=== PATIENT | female | born 1955 | race Caucasian/White ===

== ENCOUNTER 2021-07-21 10:27 | Emergency (ER) | payer BC, OTHER, SELFPAY ==
--- NOTE | ~2021-07-21 | XR_ITS ---
EXAMINATION: XR KNEE, RIGHT CLINICAL INFORMATION: Worsening posterior right knee pain. COMPARISON: None TECHNIQUE: Four views of the right knee. FINDINGS: Bones and soft tissues are normal. No fracture or joint effusion. Alignment is anatomic. Joint spaces are well maintained. No abnormal soft tissue calcification. XR/XR knee RT 3V IMPRESSION: Unremarkable right knee.
--- NOTE | ~2021-07-21 | US_ITS ---
EXAMINATION: RIGHT LOWER EXTREMITY DEEP VENOUS ULTRASOUND CLINICAL INFORMATION: Posterior thigh pain status post trauma. COMPARISON: None. TECHNIQUE: Duplex Doppler imaging with compression maneuvers were performed of the right lower extremity deep venous system. FINDINGS: The visualized common femoral, femoral and popliteal veins demonstrate normal compressibility and color flow without evidence of venous thrombosis. Visualized portions of the calf veins demonstrate normal color fill-in suggesting patency. There is no evidence of a Lundberg's cyst. US/US venous duplex LE RT IMPRESSION: No evidence of deep venous thrombosis involving the right lower extremity.
[2021-07-21 11:29] VITALS: BP 154/50; PULSE 69; RESP 19; TEMP 36.9; O2SAT 98; BMI 35.8
--- NOTE | 2021-07-21 11:57 | ED.EXTPRO ---
HPI - Extremity Problem General Chief complaint: Extremity Problem Stated complaint: r knee pain Time Seen by Provider: 07/21/21 11:43 Source: patient Mode of arrival: ambulatory Limitations: no limitations History of Present Illness HPI Narrative: 65-year-old female presents for right knee pain. Patient has had right knee pain for months, her knee has felt swollen painful, and is as if someone has stuck a spike through the side of her knee Patient saw her primary care provider 3 days ago, had an x-ray, knee was arthritic, nothing acute on x-ray Patient has also been experiencing as charley horse in the back of her right thigh, initially she had a painful right calf, now the pain has moved up into the back of her right thigh. Last night she was sitting in her car, and reached for something and felt a snap in her knee. Now it hurts to bend her knee, she can bear weight, but it is painful. No blood thinners. Past medical history hypertension, hyperlipidemia, hypothyroid Related Data Previous Rx's Medication Instructions Recorded methocarbamol 750 mg tablet 750 mg PO Q8H 5 Days #15 tab 07/21/21 Allergies Allergy/AdvReac Type Severity Reaction Status Date / Time codeine [CODEINE] AdvReac Intermediate NAUSAEA Unverified 11/25/19 17:55 Review of Systems Constitutional: Constitutional: Denies body ache(s), Denies chills, Denies fatigue, Denies fever(s), Denies headache(s), Denies malaise and Denies weakness Eyes: Eyes: Denies diplopia ENT: Denies vertigo, Denies dizziness, Denies headache(s) and Denies throat swelling Cardiovascular: Cardiovascular: Denies chest pain, Denies syncope, Denies leg edema, Denies lightheadedness, Denies Loss of Consciousness, Denies palpitations and Denies dyspnea Respiratory: Respiratory: Denies chest congestion, Denies cough and Denies dyspnea Gastrointestinal: Gastrointestinal: Denies abdominal pain, Denies hematochezia, Denies constipation, Denies diarrhea and Denies vomiting Musculoskeletal: Musculoskeletal: Denies back pain, Denies myalgias, Denies deformity, Reports arthralgias, Reports limited range of motion, Reports muscle cramps, Denies muscle weakness, Denies numbness and Denies tingling Integumentary/Breasts: Skin/Breast: Denies rash Neurologic: Denies confusion, Denies vertigo, Denies dizziness, Denies syncope, Denies headache(s), Denies numbness, Denies tingling and Denies weakness Psychiatric: Psychiatric: Denies anxiety, Denies confusion and Denies depression Endocrine: Endocrine: Denies fatigue and Denies palpitations Allergic/Immunologic: Allergic/Immunologic: Denies throat swelling [facility] Past Medical History [facility] Narrative: Hypertension, hyperlipidemia, hypothyroid Social History Social History Advance Directives: Yes Advance Directives Information Provided: No Advance Directives on File: No Physical Exam Vital Signs: Vital Signs: Last Vital Signs Temp 98.4 F 07/21/21 11:29 Pulse 69 07/21/21 11:29 Resp 19 07/21/21 11:29 BP 154/50 H 07/21/21 11:29 Pulse Ox 98 07/21/21 11:29 BMI result Body Mass Index 35.8 Const: General: no acute distress, well developed, alert and awake; No confusion Nutritional Appearance: well nourished Orientation/consciousness: patient oriented x3 and No confusion Limitations: no limitations Eyes: Conjunctivae: conjunctivae normal Pupils: Equal, round and reactive pupils present EOM: EOMs intact bilaterally Neck: Neck: Yes full ROM, Yes no lymphadenopathy and Yes supple Resp: Effort & Inspection: normal respiratory effort and able to speak in complete sentences Auscultation: clear to auscultation bilaterally, no crackles, no rales, no rhonchi and no wheezes Cardio: Rate: regular rate Rhythm: regular rhythm Heart sounds: S1 normal heart sound present and S2 normal heart sound present GI: Inspection: Yes normal to inspection Palpation (GI): Soft to palpation, nontender, no guarding and not rigid Percussion: Yes normal to percussion Auscultation: normal bowel sounds Skin: General skin exam: no rashes or lesions noted Neuro: General: patient oriented x3 and No confusion Cranial nerves: Yes Equal, round and reactive pupils present Extrem: Right lower extremity: normal to inspection, normal capillary refill, hip/thigh Details: normal to inspection and tenderness Location: of the mid upper leg (Posterior); Negative for no swelling, no ecchymosis, no crepitus and no unusual warmth and knee Details: normal to inspection, tenderness Location: of the popliteal fossa, abnormal ROM Details: pain with active ROM during Details: in flexion and pain with passive ROM during Details: in flexion and knee ligament exam normal; Negative for no swelling, no ecchymosis, no crepitus, no deformity and no unusual warmth; No no cyanosis and no edema Psych: Appearance: grossly normal Affect: normal affect Attitude: cooperative Thought process: Normal thought process present Course Course Course Narrative: 65-year-old female with a month long history of right knee pain, with worsening pain after patient reach for something while sitting in her car yesterday. Additionally patient has had had posterior right thigh pain Today, patient cannot flex her knee without pain. She is tender in her popliteal fossa, tender to palpate in posterior right thigh. Intact lower extremity sensation, distal pulses, motor strength. Will get ultrasound to rule out DVT in right posterior thigh, will get labs to evaluate electrolytes, x-ray knee. Gave Tylenol for pain Reevaluation(s) Reevaluation #1: Patient has a leukocytosis of 14.7, most likely inflammatory not infectious. Patient tells me that she always has increased white blood cells, unknown cause I will not elizabeth this, as I do not feel that this is infection at this time Electrolytes are fine. Ultrasound shows no evidence of Lundberg cyst or DVT, x-ray is unremarkable Will treat with knee immobilizer, crutches, muscle relaxant, rest, ice, compression, elevation, follow-up with orthopedics. All patient's questions were answered MDM - Extremity (Nontraumatic) Lab Data Result diagrams: 07/21/21 12:05 07/21/21 12:05 Labs: Lab Results 07/21/21 07/21/21 Range/Units 12:05 12:05 WBC 14.7 H (4.8-10.8) X10*3/uL RBC 4.12 L (4.20-5.50) X10*6/uL Hgb 13.3 (12.0-16.0) g/dl Hct 38.1 (37.0-47.0) % MCV 92.5 (80.0-98.0) fL MCH 32.3 (27.0-33.0) pg MCHC 34.9 (31.0-35.0) g/dl RDW 12.9 (11.0-16.0) % Plt Count 319 (160-400) X10*3/uL MPV 11.5 (9.4-12.3) fL Immature Gran % (Auto) 0.4 (0.0-0.4) % Neut % (Auto) 73.0 (45-73) % Lymph % (Auto) 20.2 (20-40) % [place] % (Auto) 5.8 (2-11) % Eos % (Auto) 0.3 (0-4) % Baso % (Auto) 0.3 (0-2) % Lymph # (Auto) 3.0 (1.2-4.9) X10*3/uL [place] # (Auto) 0.9 (0.1-1.2) X10*3/uL Eos # (Auto) 0.1 (0.0-0.4) X10*3/uL Baso # (Auto) 0.0 (0.0-0.2) X10*3/uL Abs Immat Gran (auto) 0.06 H (0.00-0.03) X10*3/uL Absolute Neuts (auto) 10.7 H (2.0-8.3) x10*3/uL Absolute Nucleated RBC 0.000 (0.0-0.012) X10*3/uL Nucleated RBC % (auto) 0.0 (0.0-0.2) /100WBC Sodium 139 (135-145) mmol/L Potassium 3.3 (3.3-5.1) mmol/L Chloride 101 (96-108) mmol/L Carbon Dioxide 28 (22-29) mmol/L Anion Gap 13 (12-20) BUN 20 H (9-16) mg/dL Creatinine 0.95 (0.5-1.4) mg/dL Estim Creat Clear Calc 57.2 Estimated GFR 59 Random Glucose 131 H (60-115) mg/dL Calcium 10.2 (8.4-10.2) mg/dL Total Bilirubin 0.7 (0.0-1.0) mg/dL AST 18 (5-31) U/L ALT 21 (0-31) U/L Alkaline Phosphatase 90 (39-117) U/L Total Protein 7.6 (6.5-8.0) g/dL Albumin 4.3 (3.5-5.0) g/dL Discharge Plan Discharge Clinical Impression: Right knee pain Patient Disposition: Home, Self-Care Instructions: R.I.C.E. Treatment (ED) Additional Instructions: Please call orthopedics at the following number [phone] I have referred you to orthopedics, but If you have not heard from them by Friday, please call Please rest, ice, elevate, and use your knee immobilizer until you are seen by orthopedics. Please alternate Tylenol and ibuprofen for pain. Take 1 or the other every 4 hours. For example, at midnight take 1000 mg of Tylenol, then at 4:00 a.m. take 800 mg ibuprofen, at 8:00 a.m. take 1000 mg of Tylenol, at noon take 800 mg of ibuprofen, at 4:00 p.m. take 1000 mg of Tylenol, at 8:00 p.m. take 800 mg of ibuprofen. Do not exceed 3000 mg of Tylenol in 24 hours. This method is proven to be as effective as an opioid for pain control. Please fill prescription for methocarbamol that I prescribed, this is a muscle relaxant and should help your right thigh pain. Please return to emergency room for any new or concerning symptoms Prescriptions: New methocarbamol 750 mg tablet 750 mg PO Q8H 5 Days Qty: 15 0RF Referrals: Eugene Rojas MD [Physician] -
[2021-07-21] MEDS: Acetaminophen 325 MG TABLET 975 MG PO (12:00)
[2021-07-21 12:09] LABS: MANUAL DIFF FLAG NO
[2021-07-21 12:16] LABS: Basophils Percent Auto 0.3 % (0-2); Eosinophils Absolute Auto 0.1 X10*3/uL (0.0-0.4); Eosinophils Percent Auto 0.3 % (0-4); Hematocrit 38.1 % (37.0-47.0); Hemoglobin 13.3 g/dl (12.0-16.0); Imm Gran Abs Auto 0.06 X10*3/uL (0.00-0.03); Imm Gran Pct Auto 0.4 % (0.0-0.4); Lymphocytes Percent Auto 20.2 % (20-40); Mean Corpuscular HGB Conc 34.9 g/dl (31.0-35.0); Mean Corpuscular Hemoglobin 32.3 pg (27.0-33.0); Mean Corpuscular Volume 92.5 fL (80.0-98.0); Mean Platelet Volume 11.5 fL (9.4-12.3); Monocytes Absolute Auto 0.9 X10*3/uL (0.1-1.2); Monocytes Percent Auto 5.8 % (2-11); Neutrophils Absolute Auto 10.7 x10*3/uL (2.0-8.3); Platelet Count 319 X10*3/uL (160-400); Red Blood Count 4.12 X10*6/uL (4.20-5.50); Red Cell Distribution Width 12.9 % (11.0-16.0); White Blood Count 14.7 X10*3/uL (4.8-10.8)
[2021-07-21 12:42] LABS: Alanine Aminotransferase 21 U/L (0-31); Albumin Level 4.3 g/dL (3.5-5.0); Alkaline Phosphatase 90 U/L (39-117); Anion Gap 13 (12-20); Aspartate Amino Transferase 18 U/L (5-31); Bilirubin Total 0.7 mg/dL (0.0-1.0); Blood Urea Nitrogen 20 mg/dL (9-16); Calcium 10.2 mg/dL (8.4-10.2); Carbon Dioxide 28 mmol/L (22-29); Chloride 101 mmol/L (96-108); Creatinine Clr Calc Pharmacy 57.2; Estimated Glomerular Filt Rate 59; Glucose Random 131 mg/dL (60-115); Potassium 3.3 mmol/L (3.3-5.1); Sodium 139 mmol/L (135-145); Total Protein 7.6 g/dL (6.5-8.0)
== END 2021-07-21 14:24 | disposition home or self-care (01) ==
PROVIDERS: Physician Assistant; Emergency Provider Emergency Medicine; PCP Internal Medicine
DX: M25.561 Pain in right knee (principal); M79.651 Pain in right thigh; I10 Essential (primary) hypertension
CPT/HCPCS: 36415; 73562; 80053; 85025; 93971; 99283; 99284

== ENCOUNTER 2021-11-09 07:18 | Outpatient (REF) | payer MEDICARE, BC, OTHER, SELFPAY ==
--- NOTE | ~2021-11-09 | XR_ITS ---
EXAMINATION: XR KNEE AP STANDING X-ray right knee CLINICAL INFORMATION: Knee pain COMPARISON: X-ray right knee 07/21/2021 TECHNIQUE: AP bilateral standing view of the knees was obtained. Right knee 2 views FINDINGS: Right knee: Mild medial compartment joint space narrowing. Limited evaluation of the patellofemoral joint space on the sunrise view, grossly appearing maintained on the lateral projection. No visible acute fracture or dislocation. Small suprapatellar joint fluid. Quadriceps tendon insertional enthesopathy. Tibial tubercle insertional enthesopathy. Left knee: On this single frontal radiograph, there is mild to moderate medial compartment arthritis with joint space loss and osteophytes. XR/XR knee RT 1V IMPRESSION: Right knee: Mild medial compartment arthritis. Small effusion. Left knee: Mild to moderate medial compartment arthritis.
--- NOTE | ~2021-11-09 | XR_ITS ---
EXAMINATION: XR KNEE AP STANDING X-ray right knee CLINICAL INFORMATION: Knee pain COMPARISON: X-ray right knee 07/21/2021 TECHNIQUE: AP bilateral standing view of the knees was obtained. Right knee 2 views FINDINGS: Right knee: Mild medial compartment joint space narrowing. Limited evaluation of the patellofemoral joint space on the sunrise view, grossly appearing maintained on the lateral projection. No visible acute fracture or dislocation. Small suprapatellar joint fluid. Quadriceps tendon insertional enthesopathy. Tibial tubercle insertional enthesopathy. Left knee: On this single frontal radiograph, there is mild to moderate medial compartment arthritis with joint space loss and osteophytes. XR/XR knee standing BI IMPRESSION: Right knee: Mild medial compartment arthritis. Small effusion. Left knee: Mild to moderate medial compartment arthritis.
== END 2021-11-09 07:19 | disposition home or self-care (01) ==
LOC: HO.HOSX 07:18
PROVIDERS: Visit Provider Physician Assistant
DX: M17.11 Unilateral primary osteoarthritis, right knee (principal)
CPT/HCPCS: 20610; 73560; 73565; J1040

== ENCOUNTER 2023-05-01 08:47 | Outpatient (REF) | payer MEDICARE, BC, OTHER, SELFPAY ==
--- NOTE | ~2023-05-01 | XR_ITS ---
EXAMINATION: XR KNEE, LEFT XR KNEE AP STANDING CLINICAL INFORMATION: Pain. COMPARISON: Prior radiographs, most recently 11/27/2021. TECHNIQUE: Lateral and axial views of the left knee are obtained. AP bilateral standing view of the knees was obtained. FINDINGS: The lateral joint space compartment of the right knee is well-maintained, and there is moderate narrowing and peripheral osteophyte formation of the right medial joint space compartment. The lateral and patellofemoral joint space compartments of the left knee are well-maintained, and there is moderate narrowing of the medial joint space compartment. There is tricompartment osteoarthritic change, most pronounced in the left medial joint space compartment. An enthesophyte is seen arising from the upper pole of the left patella at the quadriceps tendon insertion. No fracture or dislocation is seen.There is no left knee joint effusion. There is a mild varus configuration of the bilateral knees. XR/XR knee LT 2V IMPRESSION: 1. There is moderate osteoarthritic change of the medial joint space compartment of the right knee. 2. There is tricompartment osteoarthritic change of the left knee, most pronounced in the medial joint space compartment, where degenerative change is moderate. 3. There is a mild bilateral varus configuration of the knees.
--- NOTE | ~2023-05-01 | XR_ITS ---
EXAMINATION: XR KNEE, LEFT XR KNEE AP STANDING CLINICAL INFORMATION: Pain. COMPARISON: Prior radiographs, most recently 11/27/2021. TECHNIQUE: Lateral and axial views of the left knee are obtained. AP bilateral standing view of the knees was obtained. FINDINGS: The lateral joint space compartment of the right knee is well-maintained, and there is moderate narrowing and peripheral osteophyte formation of the right medial joint space compartment. The lateral and patellofemoral joint space compartments of the left knee are well-maintained, and there is moderate narrowing of the medial joint space compartment. There is tricompartment osteoarthritic change, most pronounced in the left medial joint space compartment. An enthesophyte is seen arising from the upper pole of the left patella at the quadriceps tendon insertion. No fracture or dislocation is seen.There is no left knee joint effusion. There is a mild varus configuration of the bilateral knees. XR/XR knee standing BI IMPRESSION: 1. There is moderate osteoarthritic change of the medial joint space compartment of the right knee. 2. There is tricompartment osteoarthritic change of the left knee, most pronounced in the medial joint space compartment, where degenerative change is moderate. 3. There is a mild bilateral varus configuration of the knees.
== END 2023-05-01 08:48 | disposition home or self-care (01) ==
LOC: HO.HOSX 08:47
PROVIDERS: Visit Provider Orthopaedic Surgery
DX: M25.562 Pain in left knee (principal)
CPT/HCPCS: 73560; 73565; 99212

== ENCOUNTER 2023-05-01 09:38 | Outpatient (AMB) | payer MEDICARE, BC, OTHER, SELFPAY ==
--- NOTE | 2023-05-01 09:46 | A.OFFVIS_ITS ---
Intake Vital Signs 05/01/23 09:47 Height 5 ft Intake Visit Reasons: New Prob- Left knee pain Intake Note: Billie is a 67 year old female who presents today for a new problem visit with complaints of left knee pain. Patient reports that she has had left knee pain for about a year now. She is unable to kneel on the knee. The pain goes away once she is no longer kneeling. Allergies cefuroxime Allergy (Verified 05/01/23 09:52) Nausea codeine [CODEINE] Adverse Reaction (Intermediate, Verified 08/02/22 12:40) NAUSAEA HPI New Prob- Left knee pain HPI Details Billie is a 67 year old woman who presents with complaints of left knee OA pain. She reports pain primarily with kneeling activities, and say she has not been able to do so for ~1 year now without pain. She has known left knee OA & a hx of meniscus tear, and had good relief from steroid injections in the past. She has right knee OA and received a steroid injection on 11/09/21, with good relief. Today she is here because she has difficulty kneeling on her left knee. She otherwise has no pain. She has tried a cushion but finds it intolerable. She feels she has to kneel in order to garden and clean. SHe can walk about 1- 1 1/2 miles without pain. [facility] Medical History (Updated 05/01/23 @ 10:14 by Eugene Rojas MD) Hyperthyroidism Hypertension Surgical History (Updated 05/01/23 @ 09:54 by Key Sanders CMA) H/O hemorrhoidectomy (~03/06/23) History of lumpectomy History of hysterectomy Social History Patient Tobacco Use Status: Former Tobacco user Current occupational status: retired Review of Systems Const All systems reviewed & are unremarkable except as noted in HPI and below Physical Exam Const General: no acute distress, alert and awake Orientation/consciousness: patient oriented x3 HEENT Head: Yes normocephalic and Yes atraumatic Mouth: moist mucous membranes Eyes General: appearance normal, both eyes and all related structures EOM: EOMs intact bilaterally Chest Other: no audible wheezing. Resp Other: No audible wheezing Effort & Inspection: normal respiratory effort and able to speak in complete sentences Cardio Other: Radial pulse palpable with no rythmic abnormalities Jugular venous distension: no JVD Back/Spine/Pelvis Cervical Spine: normal cervical lordosis Skin General skin exam: turgor normal Rashes: no rashes Neuro General: patient oriented x3 Extrem Other: Left knee with full ROM Stable to v/v stress No effusion TTP lateral patellofemoral articulation Psych Appearance: grossly normal Mental Status: mental status grossly normal Speech and movement: Normal speech and movement present Affect: normal affect Attitude: cooperative Results Reviewed Results Reviewed: I personally reviewed relevant radiographs. Moderate tricompartmental OA bilaterally Assessment & Plan Assessment & Plan (1) Arthritis of both knees: Code(s): M17.0 - Bilateral primary osteoarthritis of knee Plan: Bilateral knee OA. Her left is symptomatic mostly with kneeling. I reviewed her radiographs and her symptoms with her. I suggest activity modification and injections. At this time she does not feel that her symptoms are significant enough to warrant injections. She may return when the weather is nicer and her symptoms are more bothersome. At that time we can inject her knee. Plan Prepared for Eugene Rojas MD by Chilango Castillo, director medical economics, on 05/01/23 at 9:50 AM, EST. Orders: Orders XR knee standing BI 05/02/23 M25.569 - Pain in unspecified knee Vida Robbins PA-C XR knee LT 2V 05/02/23 M25.569 - Pain in unspecified knee NADYA Kennedy XR knee standing BI Today M25.569 - Pain in unspecified knee Eugene Rojas MD XR knee LT 2V Today M25.569 - Pain in unspecified knee Eugene Rojas MD Coding Level of Care Code Est Pt Level 3 (89233) Diagnoses Arthritis of both knees M17.0
== END 2023-05-01 10:57 | disposition home or self-care (01) ==
PROVIDERS: Visit Provider Orthopaedic Surgery
DX: M17.0 Bilateral primary osteoarthritis of knee (principal)
CPT/HCPCS: 99213

== ENCOUNTER 2023-05-02 09:00 | Outpatient (REF) | payer MEDICARE, BC, OTHER, SELFPAY | END 2023-05-02 09:01 | disposition home or self-care (01) | LOC: HO.HOSX 09:00 | PROVIDERS: Visit Provider Physician Assistant | DX: Z13.89 Encounter for screening for other disorder (principal) ==

== ENCOUNTER 2023-06-25 12:51 | Emergency (ER) | payer MEDICARE, BC, OTHER, SELFPAY ==
--- NOTE | 2023-06-25 | ECG_ITS ---
Test Reason : chest pain Blood Pressure : / mmHG Vent. Rate : 069 BPM Atrial Rate : 069 BPM P-R Int : 160 ms QRS Dur : 082 ms QT Int : 384 ms P-R-T Axes : 042 -14 005 degrees QTc Int : 411 ms Normal sinus rhythm Inferior infarct , age undetermined Abnormal ECG When compared with ECG of 28-DEC-2014 08:59, Inferior infarct is now Present Nonspecific T wave abnormality now evident in Anterior leads Referred By: Generic ED Physician Electronically Signed By:OCHOA FOWLER
--- NOTE | ~2023-06-25 | XR_ITS ---
EXAMINATION: XR CHEST CLINICAL INFORMATION: Substernal chest pain COMPARISON: None available. TECHNIQUE: 2 views of the chest were obtained. FINDINGS: No significant abnormality is noted involving the heart, lungs, mediastinum, bony thorax or soft tissues. XR/XR chest 2V IMPRESSION: Unremarkable examination.
[2023-06-25 13:08] VITALS: BP 150/61; PULSE 66; RESP 18; TEMP 36.8; O2SAT 96; BMI 35.2
--- NOTE | 2023-06-25 13:08 | ED_ITS ---
HPI - Chest Pain General Chief Complaint: Chest Pain Stated Complaint: cp Time Seen by Provider: 06/25/23 15:39 Source: patient Mode of arrival: ambulatory Limitations: no limitations History of Present Illness HPI narrative: Patient comes to the emergency room complaining of midsternal chest pain for 1 year which has worsened over the last 2 months. Patient denies any shortness of breath or chest pain at this time. Patient states that she does to a lot of exercise and sometimes believes that she has musculoskeletal pain. Patient states that she had a stress test done about 5 years ago and it was normal. Also, patient complaining of paresthesias which are not present at this time. Related Data Home Medications ?Medication ?Instructions ?Recorded ?Confirmed atorvastatin 20 mg tablet 20 mg PO DAILY 11/09/21 carvedilol 12.5 mg tablet 12.5 mg PO BID 11/09/21 chlorthalidone 25 mg tablet 25 mg PO DAILY 11/09/21 esomeprazole magnesium 20 mg 20 mg PO DAILY 08/02/22 capsule,delayed release (Nexium 24HR) methimazole 5 mg tablet 2.5 mg PO DAILY 08/02/22 tacrolimus 0.03 % topical ointment 1 appl topical BID 08/02/22 Previous Rx's ?Medication ?Instructions ?Recorded potassium chloride 20 mEq oral 20 meq PO DAILY #30 ea 06/25/23 packet Allergies Allergy/AdvReac Type Severity Reaction Status Date / Time cefuroxime Allergy Nausea Verified 06/25/23 13:14 codeine [CODEINE] AdvReac Intermediate NAUSAEA Verified 06/25/23 13:14 Review of Systems 2 Review of Systems: Constitutional : No Weight loss, No Fever, No Chills, No Night Sweats, No Fatigue, No Malaise ENT/Mouth : No Hearing loss, No Ear Pain, No Nasal Congestion, No Sinus Pain, No Hoarseness, No sore throat, No Rhinorrhea, No Swallowing Difficulty Eyes: No Eye Pain, No Swelling, No Redness, No Foreign Body, No Discharge, No Vision Changes Cardiovascular : Complaining of chronic Chest Pain, No SOB, No Dyspnea on Exertion, No Orthopnea, No Edema, No Palpitations Respiratory : No Cough, No Sputum, No Wheezing, No Smoke Exposure, No Dyspnea Gastrointestinal : No Nausea, No Vomiting, No Diarrhea, No Constipation, No abdominal Pain, No Hematochezia, No Melena Genitourinary : no irregular bleeding, No Dysuria, No Urinary Frequency, No Hematuria, No Urinary Incontinence, No Urgency, No Flank Pain, No Urinary Flow Changes, No Hesitancy Musculoskeletal : No joint pain, No Myalgias, No Joint Swelling Skin : No Skin Lesions, No rash Neuro : No Weakness, No Numbness, complaining of Paresthesias in bilateral upper and lower extremities, No Loss of Consciousness, No Dizziness, No Headache Psych : No Anxiety/Panic, No Depression, No SI/HI/AH/VH, No Social Issues, Heme/Lymph: No Bruising, No Bleeding,No Lymphadenopathy Endocrine : No Polyuria, No Polydipsia, No Temperature Intolerance [facility] Past Medical History Medical History Hyperthyroidism Hypertension Surgical History (Updated 05/01/23 @ 09:54 by Key Sanders CMA) H/O hemorrhoidectomy (~03/06/23) History of lumpectomy History of hysterectomy Social History Social History Patient Tobacco Use Status: Former Tobacco user Advance Directives: Yes Advance Directives Information Provided: No Advance Directives on File: No Current occupational status: retired Physical Exam 2 Vital Signs: Vital Signs: Last Vital Signs Temp 98.2 F 06/25/23 13:08 Pulse 67 06/25/23 15:25 Resp 18 06/25/23 15:25 BP 161/59 H 06/25/23 15:25 Pulse Ox 100 06/25/23 15:25 O2 Del Method Room Air 06/25/23 15:25 BMI result Body Mass Index 35.2 Const: Other: Appearance: Alert. Oriented X3. No acute distress. Eyes: Pupils equal, round and reactive to light. ENT: Pharynx normal. Neck: Normal inspection. Neck supple. No lymph nodes noted. No crepitus CVS: Normal heart rate and rhythm. Pulses normal. Normal S1 and S2 Respiratory: No respiratory distress. Breath sounds normal. No Wheezing. No rales Abdomen: Soft and nontender. No rigidity. No distention. Skin: Skin warm and dry. Normal skin color. Normal skin turgor. Extremities: No lower extremity edema. No Lacerations. No Rash Neuro: Oriented X 3. No motor deficit. No sensory deficit. Moving all extremities. No slurred speech. CN 2 through 12 grossly intact Psych: calm, cooperative, normal affect Course Course Course Narrative: RME:67 yo female here w/?sporadic substernal squeezing chest pressure and dyspnea x 1 yr, worsening x 2 mo both at rest and on exertion. No radiation. +sob +numbness to b/l feet (R>L), b/l hands (L>R) x1 wk. only notices it when she stops and thinks about it. hx of prediabetes. neuro intact. fast neg. labs, trop, ekg, cxr ordered. Full HPI, ROS and PE to be performed by the primary ED provider. Medications Administered Discontinued Medications Generic Name Dose Route Start Last Admin Trade Name Freq PRN Reason Stop Dose Admin Potassium Chloride 10 meq in 100 mls @ 100 mls/hr 06/25/23 15:45 06/25/23 18:10 Potassium Chloride/H20 IV 06/25/23 17:44 100 mls/hr Q1H MICKY Administration Magnesium Sulfate 2 gm in 50 mls @ 25 mls/hr 06/25/23 15:37 06/25/23 18:09 Magnesium Sulfate/H2o IV 06/25/23 17:36 Infused ONCE ONE Infusion Potassium Chloride 40 meq 06/25/23 15:37 06/25/23 15:44 Potassium Chloride Packet 20 Meq Packet PO 06/25/23 15:38 40 meq ONCE ONE Administration Medical Decision Making Medical Decision Making [facility] Narrative: -my interpretation of labs: Normal hematology, chemistry shows potassium 2.9. -patient does take chlorthalidone which puts her risk of hyperkalemia. -patient was repleted with IV and p.o. potassium, repeat potassium 3.2. Patient asymptomatic. -my interpretation of EKG, normal sinus rhythm, heart rate 69, no ST segment depression or elevation, nonspecific T-wave inversion in lead 3, QTC 411, no T- wave abnormality Differential Diagnosis Differential Diagnoses: The differential diagnosis associated with the presentation includes (Hypokalemia, electrolyte abnormality, paresthesias) Lab Data [facility] Lab Attestation statement: I reviewed the patient's lab results. 06/25/23 13:28 06/25/23 15:58 Labs: Lab Results 06/25/23 06/25/23 Range/Units 13:28 15:58 WBC 10.9 H (4.8-10.8) X10*3/uL RBC 4.04 L (4.20-5.50) X10*6/uL Hgb 13.1 (12.0-16.0) g/dl Hct 38.0 (37.0-47.0) % MCV 94.1 (80.0-98.0) fL MCH 32.4 (27.0-33.0) pg MCHC 34.5 (31.0-35.0) g/dl RDW 12.4 (11.0-16.0) % Plt Count 300 (160-400) X10*3/uL MPV 11.3 (9.4-12.3) fL Immature Gran % (Auto) 0.5 H (0.0-0.4) % Neut % (Auto) 64.3 (45-73) % Lymph % (Auto) 27.2 (20-40) % [place] % (Auto) 7.0 (2-11) % Eos % (Auto) 0.6 (0-4) % Baso % (Auto) 0.4 (0-2) % Lymph # (Auto) 3.0 (1.2-4.9) X10*3/uL [place] # (Auto) 0.8 (0.1-1.2) X10*3/uL Eos # (Auto) 0.1 (0.0-0.4) X10*3/uL Baso # (Auto) 0.0 (0.0-0.2) X10*3/uL Abs Immat Gran (auto) 0.05 H (0.00-0.03) X10*3/uL Absolute Neuts (auto) 7.0 (2.0-8.3) x10*3/uL Absolute Nucleated RBC 0.000 (0.0-0.012) X10*3/uL Nucleated RBC % (auto) 0.0 (0.0-0.2) /100WBC PT 12.2 (11.1-13.3) SEC INR 1.0 (0.9-1.1) Sodium 140 140 (135-145) mmol/L Potassium 2.9 L* 3.2 L (3.3-5.1) mmol/L Chloride 103 101 (96-108) mmol/L Carbon Dioxide 29 30 H (22-29) mmol/L Anion Gap 11 L 12 (12-20) BUN 14 15 (9-16) mg/dL Creatinine 0.76 0.68 (0.5-1.4) mg/dL Estim Creat Clear Calc 68.9 77.0 Estimated GFR > 60 > 60 Random Glucose 143 H 103 (60-115) mg/dL Calcium 9.4 D 9.7 (8.4-10.2) mg/dL Magnesium 1.7 (1.6-2.6) mg/dL Total Bilirubin 0.4 (0.0-1.0) mg/dL AST 19 (5-31) U/L ALT 20 (0-31) U/L Alkaline Phosphatase 94 (39-117) U/L Troponin I High Sens < 2.7 < 2.7 (<3.5-17.0) ng/L Total Protein 7.2 (6.5-8.0) g/dL Albumin 4.0 (3.5-5.0) g/dL Lipase 16 (8-78) U/L Independent Interpretation I performed an independent interpretation of an: Plain X-Ray Radiology Impression Discussion of test interpretation with radiology: I have reviewed the radiologist's reading. Radiologist Impression: FINDINGS: No significant abnormality is noted involving the heart, lungs, mediastinum, bony thorax or soft tissues. XR/XR chest 2V IMPRESSION: Unremarkable examination. Critical Care Time Critical Care Time Critical Care Time: Yes Total Critical Care Time: 35 Attestation: I have personally provided critical care time. Time includes review of lab data, radiology results, discussion with consultants, and monitoring for potential decompensation. Intervention performed as documented. Discharge Plan Discharge Clinical Impression: Atypical chest pain, Acute hypokalemia Patient Disposition: Home, Self-Care Instructions: Potassium Content of Foods List (ED), Hypokalemia (ED) Additional Instructions: Continue taking your current medications, add potassium chloride supplement. Please follow-up with your primary care physician tomorrow. If you have any worsening or new symptoms, please return to the emergency room or call 911 Prescriptions: New potassium chloride 20 mEq packet 20 meq PO DAILY Qty: 30 1RF No Action methimazole 5 mg tablet 2.5 mg PO DAILY esomeprazole magnesium [Nexium 24HR] 20 mg capsule,delayed release(DR/EC) 20 mg PO DAILY tacrolimus 0.03 % ointment 1 appl topical BID atorvastatin 20 mg tablet 20 mg PO DAILY carvedilol 12.5 mg tablet 12.5 mg PO BID chlorthalidone 25 mg tablet 25 mg PO DAILY Print Language: [place]
[2023-06-25 13:32] LABS: MANUAL DIFF FLAG NO
[2023-06-25 13:38] LABS: Basophils Percent Auto 0.4 % (0-2); Eosinophils Absolute Auto 0.1 X10*3/uL (0.0-0.4); Eosinophils Percent Auto 0.6 % (0-4); Hemoglobin 13.1 g/dl (12.0-16.0); Imm Gran Abs Auto 0.05 X10*3/uL (0.00-0.03); Imm Gran Pct Auto 0.5 % (0.0-0.4); Lymphocytes Percent Auto 27.2 % (20-40); Mean Corpuscular HGB Conc 34.5 g/dl (31.0-35.0); Mean Corpuscular Hemoglobin 32.4 pg (27.0-33.0); Mean Corpuscular Volume 94.1 fL (80.0-98.0); Mean Platelet Volume 11.3 fL (9.4-12.3); Monocytes Absolute Auto 0.8 X10*3/uL (0.1-1.2); Neutrophils Percent Auto 64.3 % (45-73); Platelet Count 300 X10*3/uL (160-400); Red Blood Count 4.04 X10*6/uL (4.20-5.50); Red Cell Distribution Width 12.4 % (11.0-16.0); White Blood Count 10.9 X10*3/uL (4.8-10.8)
[2023-06-25 13:42] LABS: Prothrombin Time 12.2 SEC (11.1-13.3)
[2023-06-25 13:57] LABS: Troponin-I High Sensitivity < 2.7 ng/L (<3.5-17.0)
[2023-06-25 14:01] LABS: Alanine Aminotransferase 20 U/L (0-31); Anion Gap 11 (12-20); Aspartate Amino Transferase 19 U/L (5-31); Bilirubin Total 0.4 mg/dL (0.0-1.0); Blood Urea Nitrogen 14 mg/dL (9-16); Calcium 9.4 mg/dL (8.4-10.2); Carbon Dioxide 29 mmol/L (22-29); Chloride 103 mmol/L (96-108); Creatinine Clr Calc Pharmacy 68.9; Estimated Glomerular Filt Rate > 60; Glucose Random 143 mg/dL (60-115); Lipase 16 U/L (8-78); Magnesium 1.7 mg/dL (1.6-2.6); Potassium 2.9 mmol/L (3.3-5.1); Sodium 140 mmol/L (135-145); Total Protein 7.2 g/dL (6.5-8.0)
[2023-06-25 14:15] LABS: Alkaline Phosphatase 94 U/L (39-117)
[2023-06-25 15:25] VITALS: BP 161/59; PULSE 67; RESP 18; O2SAT 100
--- NOTE | 2023-06-25 15:35 | PC.NURSE ---
Patient reporting 1 year of off and on sub-sternal CP, reporting intermit SOB associated with ambulating. Pt reporting she has been doing lab work/walking lately. Pt reporting similar episode in the past but it had to do with her thyroid. Pt called PCP but they would not see her. She is a/ox4, placed on monitor, IV placed at this time.
[2023-06-25] MEDS: Potassium Chloride/H20 10 MEQ/100 ML PIGGYBACK 100 MEQ IV ×2 (15:44→18:10)
[2023-06-25] MEDS: Magnesium Sulfate/H2O 2 GM/50 ML PIGGYBACK IV (15:44)
[2023-06-25] MEDS: Potassium Chloride Packet 20 MEQ PACKET 40 MEQ PO (15:44)
[2023-06-25 16:24] LABS: Troponin-I High Sensitivity < 2.7 ng/L (<3.5-17.0)
--- NOTE | 2023-06-25 16:27 | PC.NURSE ---
Potassium rate turned down d/t burning at IV site
[2023-06-25 17:27] LABS: Anion Gap 12 (12-20); Blood Urea Nitrogen 15 mg/dL (9-16); Calcium 9.7 mg/dL (8.4-10.2); Carbon Dioxide 30 mmol/L (22-29); Chloride 101 mmol/L (96-108); Estimated Glomerular Filt Rate > 60; Glucose Random 103 mg/dL (60-115); Potassium 3.2 mmol/L (3.3-5.1); Sodium 140 mmol/L (135-145)
--- NOTE | 2023-06-25 19:28 | PC.NURSE ---
Assumed care of pt. Pending DC for K completion. Pt assisted disconnected for bathroom, , no acute distress at this time.
[2023-06-25 19:32] VITALS: BP 151/47; PULSE 57; RESP 18; O2SAT 97
[2023-06-25 19:58] VITALS: BP 151/47; PULSE 57; RESP 18; TEMP 36.7; O2SAT 97
== END 2023-06-25 19:59 | disposition home or self-care (01) ==
PROVIDERS: Emergency Medicine; Physician Assistant Medical; Emergency Provider Emergency Medicine
DX: R07.89 Other chest pain (principal); E87.6 Hypokalemia; R20.2 Paresthesia of skin; Z79.899 Other long term (current) drug therapy; Z87.891 Personal history of nicotine dependence
CPT/HCPCS: 36415; 71046; 80048; 80053; 83690; 83735; 84484; 85025; 85610; 93005; 96365; 96366; 96375; 99285; J3475; J3480

== ENCOUNTER → 2023-06-25 13:03 | Outpatient (BNV) | payer MEDICARE, BC, OTHER, SELFPAY | PROVIDERS: Visit Provider Internal Medicine | DX: R94.31 Abnormal electrocardiogram [ECG] [EKG] (principal) | CPT/HCPCS: 93010 ==

== ENCOUNTER 2023-10-06 11:27 | Outpatient (REF) | payer MEDICARE, OTHER, BC, SELFPAY ==
--- NOTE | ~2023-10-06 | XR_ITS ---
EXAMINATION: XR HIP, RIGHT CLINICAL INFORMATION: Pain in hip COMPARISON: None available. TECHNIQUE: Two views of the right hip. FINDINGS: No fracture. Alignment is anatomic. Hip joint space is maintained. Soft tissues are unremarkable. XR/XR hip RT min 2V IMPRESSION: Normal right hip.
== END 2023-10-06 11:28 | disposition home or self-care (01) ==
LOC: HO.HOSX 11:27
PROVIDERS: Visit Provider Physician Assistant
DX: M25.551 Pain in right hip (principal); M54.16 Radiculopathy, lumbar region
CPT/HCPCS: 73502; 99212

== ENCOUNTER 2023-10-06 13:13 | Outpatient (AMB) | payer MEDICARE, BC, SELFPAY ==
--- NOTE | 2023-10-06 13:22 | A.OFFVIS_ITS ---
Vital Signs 10/06/23 13:30 Height 5 ft Weight 180 lb BMI 35.2 Intake Visit Reasons: New prob- right hip pain, no known inj, wants inj Intake Note: Billie is a 68 yo right hand dominant female who presents today for right hip pain that began years ago, worsening for the last few months. Patient reports pain does get better with ambulation. Patient states right hip pain radiates to the right groin and down the posterior aspect of the right leg. Denies previous surgeries to the right hip or injuries. Patient taking 1500 mg TID with provides relief. Patient would like cortisone injection today. Allergies cefuroxime Allergy (Verified 10/06/23 13:26) Nausea codeine [CODEINE] Adverse Reaction (Intermediate, Verified 10/06/23 13:26) NAUSAEA HPI HPI New prob- right hip pain, no known inj, wants inj: Details: 68-year-old right hand dominant female who presents in the office today for an evaluation of right hip pain. ? ? While in the office today, the patient reports her right hip pain began a year ago, in 2022. She states it has increased in pain in the last few months. She does not find relief with ambulation. She claims her pain is along the posterior aspect of the right lower extremity and radiates to the right groin. She denies any prior surgeries or injuries. The patient reports she is taking Tylenol 1,500 mg TID daily which provides her with relief. She is interested in a cortisone injection today. ? ? The patient reports the pain has been intermittent but increased in the last two months. She states it feels like a pulled muscle in her buttocks that radiates to the groin and down the right lower extremity. She states when she stands up, she must take a moment before she can walk. ? ? Patient confirmed attending physical therapy for another issues and states they had her laying down and when she went to stand, she was unable to bear weight on the right lower extremity. ? 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 No ecchymosis, erythema, or edema. Full hip ROM in all planes. No groin pain with internal/external rotation. No tenderness to palpation over the greater trochanteric bursa. 3/5 strength with resisted hip flexion, knee extension, abduction, and abduction. Able to perform straight leg raise with pain posterior thigh. NVI.? Assessment & Plan Assessment & Plan (1) Lumbar radiculopathy: Code(s): M54.16 - Radiculopathy, lumbar region Category: Medical Plan Ms. Baeza is a 68-year-old right hand dominant female who presents in the office today for an evaluation of right hip pain.? ? While in the office today, the patient reports her right hip pain began a year ago, in 2022. She states it has increased in pain in the last few months. She does not find relief with ambulation. She claims her pain is along the posterior aspect of the right lower extremity and radiates to the right groin. She denies any prior surgeries or injuries. The patient reports she is taking Tylenol 1,500 mg TID daily which provides her with relief. She is interested in a cortisone injection today. ? ? The patient reports the pain has been intermittent but increased in the last two months. She states it feels like a pulled muscle in her buttocks that radiates to the groin and down the right lower extremity. She states when she stands up, she must take a moment before she can walk. ? ? Patient confirmed attending physical therapy for another issues and states they had her laying down and when she went to stand, she was unable to bear weight on the right lower extremity.? ? I would like to refer the patient to Physiatry for further evaluation and treatment of the lower back. We discussed the role of an intra-articular injection to be done at the hospital under ultrasound guidance.?In the event the patient continues to have right hip pain after being evaluated by Physiatry, then we can proceed with an intra-articular injection. I recommend the use of a heating pad and the tramadol she has at home. I supplied the patient my business card to the patient and asked for her to call if Physiatry feels the pain is not related to her lower back we can move forward with an intra-articular injection. Follow-up will be PRN, or sooner if needed. ? ? X-rays of the right hip which were obtained while in the office today and were reviewed by me, Vida Robbins PA-C, revealed no acute fracture or dislocation. Mild arthritic changes noted.? Orders: Orders XR hip RT min 2V Today M25.559 - Pain in unspecified hip Patient Instructions: Scribed by Massiel Vaca medical referral coordinator, for Vida Robbins PA-C on 10/06/2023 at 1:17 pm, EST.? Coding Level of Care Code New Pt Level 3 (20931) Diagnoses Lumbar radiculopathy M54.16
[2023-10-06 13:30] VITALS: BMI 35.2
== END 2023-10-06 13:49 | disposition home or self-care (01) ==
PROVIDERS: Visit Provider Physician Assistant
DX: M25.551 Pain in right hip (principal); M54.16 Radiculopathy, lumbar region
CPT/HCPCS: 99213

== ENCOUNTER 2023-11-13 11:29 | Outpatient (AMB) | payer MEDICARE, BC, SELFPAY ==
--- NOTE | 2023-11-13 11:32 | A.OFFVIS_ITS ---
Intake Visit Reasons: [employer]GER- Back pain, Right side Intake Note: Billie is a 68 year old female, referred by Vida Robbins, who presents today as a new patient with complaints of back pain. Patient reports this started in August/September, she came in to be seen by Vida Robbins for her hips to se if she can recieve a cortisone injection. Patient reports she is getting sciatica nerve pain but not as severe as when this first started. She describes it as feeling like she has a charley horse in her right butt cheek and radiates down her leg. She was not able to bend over and tie her shoes, this improved however she still feels discomfort and nerve pain bending over. Recently she started getting aching pain in the middle of her back. She expresses intermittent numbness and tingling in her toes that she describes as [place] bite feeling that she has also been associating with her back pain. About a month ago she noticed pain running along her shoulder blades and is concerned whether this is apart of her current problem or not. She takes Tylenol right before bed and this midly helps. She had a rash in her face and was prescribed predisone which she found extremely helpful for her pain. Denies recent injury, surgery, injection and swelling to spine or hips. Hx of right knee cortisone injection 11/09/21 w AH. Allergies cefuroxime Allergy (Verified 11/13/23 11:53) Nausea codeine [CODEINE] Adverse Reaction (Intermediate, Verified 11/13/23 11:53) NAUSAEA Medication List - Last Reconciled 11/13/23 by Jacqueline Smith MD atorvastatin 20 mg PO DAILY carvedilol 12.5 mg PO BID chlorthalidone 25 mg PO DAILY esomeprazole magnesium (Nexium 24HR) 20 mg PO DAILY methimazole 2.5 mg PO DAILY potassium chloride 20 mEq PO DAILY tacrolimus 0.03% 1 appl topical BID HPI Comments Details: Seen by ortho Vida MORIN for right hip pain. Referred to physiatry for back pain. Right groin pain has resolved. But still radiates buttocks, posterior thigh, above the elbow, not on the foot. Tingling on the toes feels frostbite . No weakness. Still overall improved. [facility] Medical History Hyperthyroidism Hypertension Surgical History (Updated 05/01/23 @ 09:54 by Key Sanders CMA) H/O hemorrhoidectomy (~03/06/23) History of lumpectomy History of hysterectomy Social History (Updated 10/06/23 @ 13:30 by SHAYAN Swain) Patient Tobacco Use Status: Former Tobacco user Current occupational status: retired Current occupation: rt handed Review of Systems Const All systems reviewed & are unremarkable except as noted in HPI and below Physical Exam Constitutional: Patient appears to be in no acute distress, well nourished and well developed. Patient was appropriately conversant and oriented. Good historian. MSK: No specific abnormalities found on inspection of the spine and all extremities. No pain with palpation over the lumbar area. Mildly tender on right SI joint and GT. Lumbar ROM was full. Limited right hip abduction range. Straight-leg raising test negative. FABERE test positive back pain with left; could not do on the right side she to limited range of motion. Strength is 5/5 in all muscle groups tested. No increased tone noted. Neurological: Right hip flexion 4/5. Rest of MMT 5/5. Ignacio?s negative bilaterally. Babinski was down going bilaterally. Clonus was negative. Gait is non-antalgic without loss of balance. Results Reviewed Results Reviewed: Ordering Physician: Vida Robbins PA-C Date of Service: 10/06/23 Procedure(s): XR hip RT min 2V Accession Number(s): [id number] cc: Vida Robbins PA-C~ EXAMINATION: XR HIP, RIGHT CLINICAL INFORMATION: Pain in hip COMPARISON: None available. TECHNIQUE: Two views of the right hip. FINDINGS: No fracture. Alignment is anatomic. Hip joint space is maintained. Soft tissues are unremarkable. XR/XR hip RT min 2V IMPRESSION: Normal right hip. I reviewed records from the following: Ortho Assessment & Plan Assessment & Plan (1) Right hip pain: Code(s): M25.551 - Pain in right hip Category: Medical (2) Right hip impingement syndrome: Code(s): M25.851 - Other specified joint disorders, right hip Category: Medical (3) Lumbar radiculopathy: Code(s): M54.16 - Radiculopathy, lumbar region Category: Medical Plan Right hip/pelvis/lower back pain which I am not yet sure of etiology. Suspect this is hip joint pathology such as hip joint impingement. But ruling out possibility of right lumbar L3-4 L4-5 radiculitis. We will get lumbar x-rays today. If that is going L3-4 or L4-5 foraminal stenosis, we may get lumbar MRI for further evaluation. If not, we may get hip MRI. Discussed maximum dose safe when taking Tylenol. Unable to take NSAIDs due to tendency to have heartburn. Assessment and plan discussed with patient, and patient was agreeable. All questions were answered thoroughly. We will call patient after x-ray results. Jacqueline Smith MD, [place] Board Certified, [place] [employer] and Rehabilitation (ABPMR) Board Certified, [place] [employer] Electrodiagnostic [employer] (ABEM) Orders: Orders XR lumbar spine 2-3V Today M54.9 - Dorsalgia, unspecified Coding Level of Care Code New Pt Level 4 (31431) Diagnoses Right hip pain M25.551 Right hip impingement syndrome M25.851 Lumbar radiculopathy M54.16
== END 2023-11-13 12:19 | disposition home or self-care (01) ==
PROVIDERS: Visit Provider Physical Medicine & Rehabilitation
DX: M25.551 Pain in right hip (principal); M25.851 Other specified joint disorders, right hip; M54.16 Radiculopathy, lumbar region
CPT/HCPCS: 99204

== ENCOUNTER 2023-11-13 11:29 | Outpatient (REF) | payer MEDICARE, OTHER, BC, SELFPAY ==
--- NOTE | ~2023-11-13 | XR_ITS ---
EXAMINATION: XR LUMBOSACRAL SPINE CLINICAL INFORMATION: Low back pain. COMPARISON: None available. TECHNIQUE: AP and lateral views of the lumbar spine and lateral view of the lumbosacral junction. FINDINGS: Mild anterolisthesis of L4 on L5 (2 mm). No additional spondylolisthesis. Mild degenerative disc disease in the lumbar spine at L3-L4 and L4-L5 characterized by loss of intervertebral disc height and endplate osteophytes. There is moderate facet arthropathy at these levels as well. Vertebral body heights are normal. No fractures. SI joints are unremarkable. Atherosclerotic calcifications are present in the abdominal aorta and iliac arteries. XR/XR lumbar spine 2-3V IMPRESSION: 1. Mild degenerative disc disease and moderate facet arthropathy at L3-L4 and L4-L5. 2. Mild anterolisthesis of L4 on L5. Electronically signed by: Yayo Dye MD 12/01/2023 11:10 PM EDT
== END 2023-11-13 11:30 | disposition home or self-care (01) ==
LOC: HO.XRAY 11:29
PROVIDERS: PCP Nurse Practitioner Family; Visit Provider Physical Medicine & Rehabilitation
DX: M54.9 Dorsalgia, unspecified (principal)
CPT/HCPCS: 72100; 99202

== ENCOUNTER 2024-01-08 11:30 | Outpatient (AMB) | payer MEDICARE, OTHER, BC, SELFPAY ==
--- NOTE | 2024-01-08 11:31 | A.OFFVIS_ITS ---
Vital Signs 01/08/24 11:33 Height 5 ft Weight 175 lb BMI 34.2 Intake Visit Reasons: OV- Back pain f/u, discuss x-ray results Intake Note: Billie is a 68 year old female who presents today for a follow up of her low back pain. She presents today to review her x-ray results. Patient reports her low back and hip was good for a while and for the past couple of weeks she has been having more pain in the morning time. She bought a new mattress that helped for a while however it no longer is helping. Some morning she has difficulty pulling up her socks on the right side. She has tried Tylenol and the relief she gets varies she says. Allergies cefuroxime Allergy (Verified 01/08/24 11:33) Nausea codeine [CODEINE] Adverse Reaction (Intermediate, Verified 01/08/24 11:33) NAUSAEA Medication List - Last Reconciled 01/08/24 by Jacqueline Smith MD atorvastatin 20 mg PO DAILY carvedilol 12.5 mg PO BID chlorthalidone 25 mg PO DAILY esomeprazole magnesium (Nexium 24HR) 20 mg PO DAILY methimazole 2.5 mg PO DAILY tacrolimus 0.03% 1 appl topical BID HPI Comments Details: Seen by ortho Viad MORIN for right hip pain. Referred to physiatry for back pain. Right groin pain has resolved. But still radiates buttocks, posterior thigh, above the elbow, not on the foot. Tingling on the toes feels frostbite . No weakness. Still overall improved. We had x-rays done to evaluate etiology of pain. Lumbar x-rays did show spondylosis L3-4 and L4-5. Says pain is worse on right buttocks, goes down to back of thigh. Aches with sitting. Sometimes walking bothers her. Takes tylenol as needed. Goes away when she moves around. Worse with driving far. Worst when waking up in the morning. Can't bring up right thigh up to put socks on. No bladder/bowel changes. No PT yet. [facility] Medical History Hyperthyroidism Hypertension Surgical History H/O hemorrhoidectomy (~03/06/23) History of lumpectomy History of hysterectomy Social History Patient Tobacco Use Status: Former Tobacco user Current occupational status: retired Current occupation: rt handed Physical Exam Vital Signs: BMI result Body Mass Index 34.2 Constitutional: Patient appears to be in no acute distress, well nourished and well developed. Patient was appropriately conversant and oriented. Good historian. MSK: No specific abnormalities found on inspection of the spine and all extremities. No pain with palpation over the lumbar area. Tender on right SI joint and right piriformis. Lumbar ROM was full. Limited right hip abduction range. Straight-leg raising test negative. FABERE test positive right buttocks pain. Positive right piriformis sign. Strength is 5/5 in all muscle groups tested. No increased tone noted. Neurological: Right hip flexion 4/5. Rest of MMT 5/5. Ignacio?s negative bilaterally. Babinski was down going bilaterally. Clonus was negative. Gait is non-antalgic without loss of balance. Results Reviewed Results Reviewed: Ordering Physician: Jacqueline Estrella Date of Service: 11/13/23 Procedure(s): XR lumbar spine 2-3V Accession Number(s): [id number] cc: LASHON SHETH NP; Jacqueline Estrella~ EXAMINATION: XR LUMBOSACRAL SPINE CLINICAL INFORMATION: Low back pain. COMPARISON: None available. TECHNIQUE: AP and lateral views of the lumbar spine and lateral view of the lumbosacral junction. FINDINGS: Mild anterolisthesis of L4 on L5 (2 mm). No additional spondylolisthesis. Mild degenerative disc disease in the lumbar spine at L3-L4 and L4-L5 characterized by loss of intervertebral disc height and endplate osteophytes. There is moderate facet arthropathy at these levels as well. Vertebral body heights are normal. No fractures. SI joints are unremarkable. Atherosclerotic calcifications are present in the abdominal aorta and iliac arteries. XR/XR lumbar spine 2-3V IMPRESSION: 1. Mild degenerative disc disease and moderate facet arthropathy at L3-L4 and L4-L5. 2. Mild anterolisthesis of L4 on L5. Electronically signed by: Yayo Dye MD 12/01/2023 11:10 PM EDT Ordering Physician: Vida Robbins PA-C Date of Service: 10/06/23 Procedure(s): XR hip RT min 2V Accession Number(s): [id number] cc: Vida Robbins PA-C~ EXAMINATION: XR HIP, RIGHT CLINICAL INFORMATION: Pain in hip COMPARISON: None available. TECHNIQUE: Two views of the right hip. FINDINGS: No fracture. Alignment is anatomic. Hip joint space is maintained. Soft tissues are unremarkable. XR/XR hip RT min 2V IMPRESSION: Normal right hip. Assessment & Plan Assessment & Plan (1) Sacroiliac joint dysfunction of right side: Code(s): M53.3 - Sacrococcygeal disorders, not elsewhere classified Category: Medical (2) Piriformis syndrome of right side: Code(s): G57.01 - Lesion of sciatic nerve, right lower limb Category: Medical Plan Tenderness over right piriformis and right SI joint. We talked about how this can get hurt and certain positions/ergonomics to prevent exacerbation. Although lumbar x-rays showed spondylosis, patient does not have any lower back pain or any signs of lumbar radiculopathy. Would refer to physical therapy. She prefers to go to [facility]. If not improved with PT, we could consider piriformis injection here in the office or refer her to pain management for SI joint injection. Talked about maximum dose for Tylenol. She will try to take this before bedtime. No indication for lumbar MRI at this time as again she does not have any low back pain or lumbar radiculopathy signs. Assessment and plan discussed with patient, and patient was agreeable. All questions were answered thoroughly. Follow up 4-6 weeks. Jacqueline Smith MD, NIXON Board Certified, [place] [employer] and Rehabilitation (ABPMR) Board Certified, [place] [employer] Electrodiagnostic [employer] (ABEM) Orders: Orders PT Evaluation and Treatment Today G57.01 - Lesion of sciatic nerve, right lower limb, M53.3 - Sacrococcygeal disorders, not elsewhere classified Coding Level of Care Code Est Pt Level 4 (51235) Diagnoses Sacroiliac joint dysfunction of right side M53.3 Piriformis syndrome of right side G57.01
[2024-01-08 11:33] VITALS: BMI 34.2
== END 2024-01-08 12:46 | disposition home or self-care (01) ==
LOC: HO.HOS 11:31
PROVIDERS: PCP Nurse Practitioner Family; Visit Provider Physical Medicine & Rehabilitation
DX: M53.3 Sacrococcygeal disorders, not elsewhere classified (principal); G57.01 Lesion of sciatic nerve, right lower limb
CPT/HCPCS: 99213

== ENCOUNTER → 2024-01-08 11:30 | Outpatient (BNVA) | payer MEDICARE, OTHER, BC, SELFPAY | PROVIDERS: PCP Nurse Practitioner Family; Visit Provider Physical Medicine & Rehabilitation | DX: M53.3 Sacrococcygeal disorders, not elsewhere classified (principal); G57.01 Lesion of sciatic nerve, right lower limb | CPT/HCPCS: 99212 ==

== ENCOUNTER 2024-04-01 10:58 | Outpatient (AMB) | payer MEDICARE, OTHER, BC, SELFPAY ==
--- NOTE | 2024-04-01 11:05 | A.OFFVIS_ITS ---
Intake Visit Reasons: OV- Back pain f/u, possible inj Intake Note: Billie 68 yr old female presents today for her follow up visit for her Sacroiliac joint dysfunction and Piriformis syndrome of right side. States she started P.T on March 01 and they told her that she was all set and didn't have to come back. She said that a few days after that session she got a bad cramp in her abdomen. She continues to reports numbness and burning in her legs, feet and arms. 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 Referred to physiatry for back pain. Right groin pain has resolved. But still radiates buttocks, posterior thigh, above the elbow, not on the foot. Tingling on the toes feels frostbite . No weakness. Still overall improved. We had x-rays done to evaluate etiology of pain. Lumbar x-rays did show spondyl osis L3-4 and L4-5. Says pain is worse on right buttocks, goes down to back of thigh. Aches with sitting. Sometimes walking bothers her. Takes tylenol as needed. Goes away when she moves around. Worse with driving far. Worst when waking up in the morning. Can't bring up right thigh up to put socks on. No bladder/bowel changes. She had gone to PT in January evaluation, given sheet of home exercises, then first session in February she was already doing well that they told her she didn't need to come back. Added more home. On , had abdominal cramp that was severe, constant daily, with the numbness/burning on arms and legs. Saw her PCP. US done, unremarkable. Blood work done. Given vitamin D 11139 weekly. Now, back/buttocks pain improved. Did aggravate yesterday from shoveling. No hip pain. Occasional lower back pain only, though sometimes she gets back stiffness. Concern is the lower abdomen cramp, and paresthesia/burning on bilateral foot/ankle. Occasional numbness on both arms/hands. Denies neck pain. History of bilateral CTR, doesn't feel like CTS per patient. PFSH Medical History Hyperthyroidism Hypertension Surgical History H/O hemorrhoidectomy (~03/06/23) History of lumpectomy History of hysterectomy Social History Patient Tobacco Use Status: Former Tobacco user Current occupational status: retired Current occupation: rt handed Physical Exam Constitutional: Patient appears to be in no acute distress, well nourished and well developed. Patient was appropriately conversant and oriented. Good historian. MSK: Neuro exam nonfocal. Gait normal. Results Reviewed Results Reviewed: Ordering Physician: Jacqueline Estrella Date of Service: 11/13/23 Procedure(s): XR lumbar spine 2-3V Accession Number(s): [id number] cc: LASHON SHETH NP; Jacqueline Estrella~ EXAMINATION: XR LUMBOSACRAL SPINE CLINICAL INFORMATION: Low back pain. COMPARISON: None available. TECHNIQUE: AP and lateral views of the lumbar spine and lateral view of the lumbosacral junction. FINDINGS: Mild anterolisthesis of L4 on L5 (2 mm). No additional spondylolisthesis. Mild degenerative disc disease in the lumbar spine at L3-L4 and L4-L5 characterized by loss of intervertebral disc height and endplate osteophytes. There is moderate facet arthropathy at these levels as well. Vertebral body heights are normal. No fractures. SI joints are unremarkable. Atherosclerotic calcifications are present in the abdominal aorta and iliac arteries. XR/XR lumbar spine 2-3V IMPRESSION: 1. Mild degenerative disc disease and moderate facet arthropathy at L3-L4 and L4-L5. 2. Mild anterolisthesis of L4 on L5. Electronically signed by: Yayo Dye MD 12/01/2023 11:10 PM EDT RP Ordering Physician: Vida Robbins PA-C Date of Service: 10/06/23 Procedure(s): XR hip RT min 2V Accession Number(s): [id number] cc: Vida Robbins PA-C~ EXAMINATION: XR HIP, RIGHT CLINICAL INFORMATION: Pain in hip COMPARISON: None available. TECHNIQUE: Two views of the right hip. FINDINGS: No fracture. Alignment is anatomic. Hip joint space is maintained. Soft tissues are unremarkable. XR/XR hip RT min 2V IMPRESSION: Normal right hip. Assessment & Plan Assessment & Plan (1) Paresthesias: Code(s): R20.2 - Paresthesia of skin Category: Medical (2) Low vitamin D level: Code(s): R79.89 - Other specified abnormal findings of blood chemistry Category: Medical Plan The back pain/buttocks pain/hip pain that she complained of previously is now improved/resolved. She has newer onset paresthesias upper and lower extremities that is not associated with any neck pain or back pain. Thought to be related to low vitamin-D. Encouraged her to continue vitamin-D supplementation as prescribed by primary care. I am on the fence whether we need to do an EMG. She is getting her physical with primary care in 2 weeks. Asked her to bring us her lab results especially vitamin-D level. Patient to discuss with her PCP whether we need to do an EMG, then let me know. Assessment and plan discussed with patient, and patient was agreeable. All questions were answered thoroughly. Jacqueline Smith MD, NIXON Board Certified, [place] [employer] and Rehabilitation (ABPMR) Board Certified, [place] [employer] Electrodiagnostic Medicine (ABEM) Coding Level of Care Code Est Pt Level 3 (09252) Diagnoses Paresthesias R20.2 Low vitamin D level R79.89
== END 2024-04-01 11:31 | disposition home or self-care (01) ==
PROVIDERS: PCP Nurse Practitioner Family; Visit Provider Physical Medicine & Rehabilitation
DX: R20.2 Paresthesia of skin (principal); R79.89 Other specified abnormal findings of blood chemistry
CPT/HCPCS: 99213

== ENCOUNTER → 2024-04-01 10:58 | Outpatient (BNVA) | payer MEDICARE, OTHER, BC, SELFPAY | PROVIDERS: PCP Nurse Practitioner Family; Visit Provider Physical Medicine & Rehabilitation | DX: R20.2 Paresthesia of skin (principal); R79.89 Other specified abnormal findings of blood chemistry | CPT/HCPCS: 99212 ==

== ENCOUNTER 2024-06-16 14:09 | Outpatient (REF) | payer MEDICARE, OTHER, BC, SELFPAY ==
--- NOTE | 2024-06-16 14:12 | EMG_ITS ---
Chief complaint: Complaining of numbness and burning on both feet. At that time she had vitamin-D deficiency, which is now corrected. She says the burning and numbness is less in severity and frequency than before. Right leg seems to be worse than left. She also has chronic back pain. Reason for referral: Evaluate for neuropathy Procedure done: Bilateral lower extremity NCS/EMG Precautions and/or limitations: None The limb temperature was monitored continuously and remained between 32-36 degrees C during the performance of the NCS. Nerve Conduction Studies Anti Sensory Summary Table ?Stim Site NR Onset (ms) Norm Onset (ms) Peak (ms) Norm Peak (ms) O-P Amp (?V) Norm O-P Amp Site1 Site2 Delta-0 (ms) Dist (cm) Jj (m/s) Norm Jj (m/s) Left Sural Anti Sensory (Lat Mall) Calf ? 1.9 3.5 <4.0 6.9 >5.0 Calf Lat Mall 1.9 14.0 74 Right Sural Anti Sensory (Lat Mall) Calf ? 2.7 3.4 <4.0 1.6 >5.0 Calf Lat Mall 2.7 14.0 52 Motor Summary Table ?Stim Site NR Onset (ms) Norm Onset (ms) O-P Amp (mV) Norm O-P Amp iAmp (mV) Amp (1st) (%) Site1 Site2 Delta-0 (ms) Dist (cm) Jj (m/s) Norm Jj (m/s) Left Peroneal Motor (Ext Dig Brev) Ankle ? 4.3 <4.0 4.6 >2.5 5.5 100.0 Ankle Ext Dig Brev 4.3 0.0 B Fib ? 10.2 4.5 5.5 97.8 B Fib Ankle 5.9 30.0 51 >40 Poplt ? 10.7 4.0 5.0 87.0 Poplt B Fib 0.5 3.0 60 >40 Right Peroneal Motor Run #1 (Ext Dig Brev) Ankle ? 13.8 <4.0 0.0 >2.5 0.0 100.0 Ankle Ext Dig Brev 13.8 0.0 Right Peroneal Motor Run #2 (Ext Dig Brev) Ankle ? 5.3 <4.0 4.5 >2.5 5.5 100.0 Ankle Ext Dig Brev 5.3 0.0 B Fib ? 11.1 4.0 4.6 88.9 B Fib Ankle 5.8 29.0 50 >40 Poplt ? 12.2 3.7 4.3 82.2 Poplt B Fib 1.1 5.0 45 >40 Right Peroneal TA Motor (Tib Ant) Fib Head ? 2.7 <4.2 3.2 3.5 100.0 Fib Head Tib Ant 2.7 0.0 Poplit ? 3.7 <5.7 3.3 3.6 103.1 Poplit Fib Head 1.0 5.0 50 >40.5 Left Tibial Motor (Abd Wade Brev) Ankle ? 3.8 <5 11.5 >2.5 17.5 100.0 Ankle Abd Wade Brev 3.8 0.0 Knee ? 10.4 7.2 10.8 62.6 Knee Ankle 6.6 33.0 50 >40 Right Tibial Motor (Abd Wade Brev) Ankle ? 3.8 <5 8.1 >2.5 12.3 100.0 Ankle Abd Wade Brev 3.8 0.0 Knee ? 12.3 0.4 0.6 4.9 Knee Ankle 8.5 33.5 39 >40 EMG ?Side Muscle Nerve Root Ins Act Fibs Psw Amp Dur Poly Recrt Int Pat Comment Right AbdHallucis MedPlantar S1-2 Incr 1+ 1+ Nml Nml 0 Nml Complete Right AntTibialis Dp Br Peron L4-5 Nml Nml Nml Nml Nml 0 Nml Complete Right PostTibialis Tibial L5, S1 Nml Nml Nml Nml Nml 0 Nml Complete Right MedGastroc Tibial S1-2 Incr 1+ 1+ Nml Nml 0 Nml Complete Right VastusMed Femoral L2-4 Nml Nml Nml Nml Nml 0 Nml Complete Left AbdHallucis MedPlantar S1-2 Nml Nml Nml Nml Nml 0 Nml Complete Left AntTibialis Dp Br Peron L4-5 Nml Nml Nml Nml Nml 0 Nml Complete Left PostTibialis Tibial L5, S1 Nml Nml Nml Nml Nml 0 Nml Complete Left MedGastroc Tibial S1-2 Nml Nml Nml Nml Nml 0 Nml Complete Left VastusMed Femoral L2-4 Nml Nml Nml Nml Nml 0 Nml Complete Paraspinal EMG ?Side Muscle Nerve Root Ins Act Fibs Psw Comment Right Lumbar Upper Rami Nml Nml Nml Right Lumbar Mid Rami Nml Nml Nml Right Lumbar Lower Rami Nml Nml Nml Left Lumbar Upper Rami Nml Nml Nml Left Lumbar Mid Rami Nml Nml Nml Left Lumbar Lower Rami Nml Nml Nml FINDINGS: Right peroneal nerve, recording EDB muscle, showed prolonged distal latency, normal amplitude and slightly slower conduction velocity across fibular neck. When recording TA muscle, small amplitude seen. Right tibial nerve showed normal distal latency, small amplitude proximally and slow conduction velocity. Right sural nerve showed normal peak latency but small amplitude. Left peroneal nerve showed prolonged distal latency, normal amplitude and normal conduction velocity. Left tibial nerve within normal. Left sural sensory nerve within normal. Concentric needle EMG was performed in selected muscles of the bilateral lower extremity and lumbar paraspinals. Study revealed signs of electric abnormalities as shown in the table above. Right medial gastrocnemius and AH muscles showed increased insertional activity, PSWs and fibrillations. No denervation seen on lumbar paraspinals. IMPRESSION: 1. This is an abnormal study. 2. Because both sensory and motor nerve conduction studies are abnormal, this is suggestive of peripheral neuropathy. 3. However denervation appears more pronounced on right leg. Either this is an asymmetric type of peripheral neuropathy or there is an underlying right-sided lumbar radiculopathy L5-S1. CLINICAL COMMENT: To discuss results and treatment options with patient on next follow up with me. Thank you for your kind referral. Jacqueline Smith MD, NIXON Board Certified, [place] Board [employer] Physical Medicine and Rehabilitation (ABPMR) Board Certified, [place] Board [employer] Electrodiagnostic Medicine (ABEM) CODIN [id number] x 2 MTDD
--- OUTSIDE RECORDS SUMMARY | 2024-06-16 16:27 | XMS_ITS | Clinical Summary ---
Author Organization [address] [place] [address] [place] [phone] Phone Care Team Providers Care Online Affiliate Marketing Manager Name Role Phone Catrina Billings MD Primary Care Prov ider Allergies Active Allergy Reactions Criticality Noted Date Comments Cefuroxime 02/06/2023 Codeine Nausea And Vomiting 08/11/2009 dizziness Medications ESOMEPRAZOLE MAGNESIUM ORAL Take by mouth. Active GENERIC EXTERNAL MEDICATION Nifedipine 0.3% ointment Apply as a thin film TID to the perianal skin 03/18/19 24 Active ibuprofen (ADVIL,MOTRIN) 600 mg tablet TAKE 1 TABLET BY MOUTH 3 TIMES A DAY NEEDED 03/06/20 23 Active carvediloL (COREG) 12.5 mg tablet TAKE 1 TABLET BY MOUTH TWICE A DAY WITH MEALS 180 tablet 02/27/20 24 Active atorvastatin (LIPITOR) 20 mg tablet Take 1 tablet (20 mg total) by mouth 1 (one) time each day. 90 tablet 1 02/27/20 24 Active chlorthalidone (HYGROTON) 25 mg tablet Take 1 tablet (25 mg total) by mouth 1 (one) time each day. 90 tablet 1 02/27/20 24 Active methIMAzole (TAPAZOLE) 5 mg tabletIndicatio ns:Thyrotoxicos is, unspecified without thyrotoxic crisis or storm Take 0.5 tablets (2.5 mg total) by mouth every other day. 45 tablet 1 03/13/20 25 Active sodium,potassiu m,mag sulfates (Suprep Bowel Prep Kit) 17.5-3.13-1.6 gram recon soln bowel prep kit oral solution Take 177ML by mouth for 2 doses. SEE INSTRUCTIONS PROVIDED BY OFFICE. 1 kit 06/03/19 25 Active methIMAzole (TAPAZOLE) 5 mg tabletIndicatio ns:Thyrotoxicos is, unspecified without thyrotoxic crisis or storm TAKE 1/2 TABLET BY MOUTH EVERY OTHER DAY 45 tablet 1 03/01/20 24 025 Discontinu ed(Reorder ) ergocalciferol (VITAMIN D-2) 1,250 mcg (50,000 unit) capsule Take 1 capsule (50,000 Units total) by mouth 1 (one) time per week. 4 capsule 1 03/22/19 25 025 Active Problems Problem Noted Date Diagnosed Date Fatty liver 03/26/2024 Obesity (BMI 30.0-34.9) 03/18/2023 External hemorrhoid 01/20/2023 Osteopenia 03/26/2022 Overview (02/16/2024): DXA BONE DENSITY STUDY 1+ SITS AXIAL SKEL Result Date: 03/26/2022 BONE DENSITY Lumbar Spine T-score is -0.6 (SD relative to 20-29 y/o adult) Z- score is +1.2 (SD relative to age matched peers) This is normal by criteria defined by the WHO. Left Hip T-score is -1.4 Z-score is +0.2 This is consistent with osteopenia by criteria defined by the WHO. Impression: Based on the World Health Organization criteria, Billie Baeza should be classified as having osteopenia. This patient has a 8.2% risk of major osteoporotic fracture and a 0.8% risk of hip fracture over the next 10 years. (World Health Organization Fracture Risk Assessment) [facility] Department of Internal Medicine recommends using National Osteoporosis Foundation (NOF) guidelines in treatment decisions related to osteoporosis. NOF guidelines suggest considering treatment for postmenopausal women and men aged 50 or older presenting with the following: History of hip or vertebral fracture. T- score less than or equal to -2.5 (DXA) at the femoral neck, total hip, or spine, after appropriate evaluation to exclude secondary causes. Low bone mass (T-score between -1.0 and -2.5 at the femoral neck or spine) AND a 10-year probability of a hip fracture greater than or equal to 3% OR a 10-year probability of a major osteoporosis-related fracture greater than or equal to 20% based on the [place]- adapted WHO algorithm Please note that all treatment decisions require clinical judgment and consideration of individual patient factors, including patient preferences, co-morbidities, previous drug use, risk factors not captured in the FRAX model (e.g., frailty, falls, vitamin D deficiency, increased bone turnover, interval significant decline in bone density) and possible under- or over-estimation of fracture risk by FRAX. Prediabetes 12/28/2021 Assessment & Plan (05/20/2024 12:34 PM EDT): Orders: Comprehensive metabolic panel; Future Lipid panel with reflex to direct LDL; Future Thyroid stimulating hormone; Future Hemoglobin A1c; Future Hyperlipidemia 12/27/2021 Assessment & Plan (05/20/2024 12:34 PM EDT): Orders: Comprehensive metabolic panel; Future Lipid panel with reflex to direct LDL; Future Thyroid stimulating hormone; Future Secondary hypertension 07/15/2019 Primary osteoarthritis of left knee 12/04/2018 Migraines 05/26/2017 Hyperthyroidism without crisis 01/03/2015 Assessment & Plan (05/20/2024 12:34 PM EDT): Orders: Comprehensive metabolic panel; Future Lipid panel with reflex to direct LDL; Future Thyroid stimulating hormone; Future Carpal tunnel syndrome 03/30/2008 Overview (02/16/2024): Bilateral, left release Ocular migraine 03/30/2008 Abdominal pain, epigastric 10/03/2005 Overview (02/16/2024): negative upper GI endoscopy 10.03.05. duodenal biopsies normal. Assessment & Plan (05/20/2024 12:34 PM EDT): Breast fibroadenoma 06/18/2005 Encounters Date Type Department Care Team Description 06/01/2024 1:20 PM EDT Consult Gastroenterology - [place] [address] [facility] [place] [address] [place] [phone] Roxann Montenegro NP Globus sensation (Primary Dx); Gastroesophageal reflux disease, unspecified whether esophagitis present; History of adenomatous polyp of colon; Abdominal bloating; Irritable bowel syndrome, unspecified type 06/01/2024 Telephone Gastroenterology [facility] 175 [facility] 175 [facility] [address] [place] [phone] Roxann Montenegro NP 05/20/2024 12:30 PM EDT Office Visit Adult Medicine [address] [phone] Catrina Zaragoza MD Hypertension, unspecified type (Primary Dx); Mixed hyperlipidemia; Prediabetes; Hyperthyroidism without crisis; Gastroesophageal reflux disease, unspecified whether esophagitis present; Abdominal pain, epigastric; Screening for malignant neoplasm of colon declined 05/20/2024 11:30 AM EDT Office Visit Endocrinology - [address] [phone] Mariana Wilkinson MD Thyrotoxicosis, unspecified without thyrotoxic crisis or storm 03/25/2024 10:08 AM EST - 03/25/2024 11:59 PM EST Hospital Encounter Radiology Department - [address] [phone] Lower abdominal pain Discharge Disposition: Home or Self Care 03/22/2024 3:00 PM EST Office Visit Adult Medicine [address] [phone] Ashley Mendoza PA Secondary hypertension (Primary Dx); Mixed hyperlipidemia; Prediabetes; Vitamin D deficiency; Numbness and tingling of both lower extremities; Numbness and tingling of both upper extremities; Lower abdominal pain from Last 3 Months Immunizations Name Administration Dates Next Due Influenza Quadravalent, MDCK , 0.5ml, with preservative (Flucelvax) 6mo and older 12/08/2019 Moderna SARS-CoV-2 COVID-19, mRNA, LNP-S, preservative free 02/10/2021,07/22/2020,06/24/2020 Td Tetanus diptheria (Tdvax) 7yo and older 07/23 Tdap Tetanus diptheria acell ular pertussis (Boostrix; Adacel) 7yo and older 05/26/2017 Zoster recombinant (Shingrix ) 19yo and older 03/09/2020,12/08/2019 Surgical History Surgery Date Site/Laterality Comments HYSTERECTOMY 1979 PROCEDURE: HISTORICAL HYSTERECTOMY; COMMENT: precancerous lesion, ovaries left OTHER SURGICAL HISTORY 05/2009 PROCEDURE: MAMMOGRAM CARPAL TUNNEL RELEASE PROCEDURE: HISTORICAL CARPAL TUNNEL REL; COMMENT: left COLONOSCOPY 04/15/2012 PROCEDURE: HISTORICAL COLONOSCOPY; COMMENT: 7 mm right colon polyp: Tubular adenoma. Next colonoscopy in 5 years. UPPER GASTROINTESTINAL ENDOSCOPY 10/03/2005 PROCEDURE: DE UPPER GI ENDOSCOPY PERFORMED; COMMENT: Normal with normal duodenal biopsies. COLONOSCOPY 08/07/2017 PROCEDURE: HISTORICAL COLONOSCOPY; COMMENT: 13 mm cecal polyp: Tubular adenoma. BREAST SURGERY 1998 Left PROCEDURE: DE UNLISTED PROCEDURE BREAST BREAST BIOPSY 1998 Left PROCEDURE: BX BREAST; PERC NEEDLE CORE W/IMAG GUID; COMMENT: lt breast exc bx BREAST BIOPSY 2017 Left PROCEDURE: DE BX BREAST W/DEVICE 1ST LESION ULTRASOUND GUID Medical History Medical History Date Comments Benign neoplasm of breast 06/18/2005 DX:Mitchell ign neoplasm of breast Historical Medical DX 03/30/2008 DX:Ocular migraine Carpal tunnel syndrome 03/30/2008 DX:Carpal tunnel syndrome; COMMENT: Bilateral, left release Benign neoplasm of colon 04/15/2012 DX:Jayden gn neoplasm of colon Hemorrhoids DX:Hemorrhoids Family History Medical History Relation Name Comments Breast cancer Aunt 1 pat 50s Colon cancer Aunt 1 pat 50s Breast cancer Aunt 2 mat ?age Lung cancer Aunt 2 mat ?age Ovarian cancer Aunt 3 Kidney cancer Father Coronary artery disease Maternal Grandfather Diabetes Maternal Grandmother Coronary artery disease Mother CABG Breast cancer Other pat cousin 40s Diabetes Paternal Grandmother CAD Relation Name Status Comments Aunt 1 pat 50s Alive Aunt 2 mat ?age Aunt 3 Father (Age 50) Maternal Grandfather Maternal Grandmother Mother (Age 85) Other pat cousin 40s Alive Paternal Grandmother Social History Tobacco Use Types Packs/Day Years Used Date Smoking Tobacco: Former Cigarettes 0 07/01/1968 - 03/10/1996 Smokeless Tobacco: Never Alcohol Use Standard Drinks/Week Comments No 0 (1 standard drink = 0.6 oz pur e alcohol) Housing Instability Answer Date Recorde d Are you worried that in the next 2 months you may not have stable housing? No 03/22/2024 Food Access & Nutrition Answer Date Rec orded Do you have access to a vari ety of food including fruits and vegetables? Yes 03/22/2024 Access to Healthcare Answer Date Record ed Within the last 3 months, ho w many times did you visit the emergency department for your medical care? 0 03/22/2024 Health Literacy Answer Date Recorded How often do you need to hav e someone help you when you read instructions, pamphlets, or other written material from your doctor or pharmacy? Never 03/22/2024 Caregiver: How often do you need to have someone help you when you read instructions, pamphlets, or other written material from your doctor or pharmacy? Not on file 03/22/2024 Financial Risk Answer Date Recorded How hard is it for you to pa y for the very basics like food, housing, medical care, and air conditioning / heating? Patient declined 03/22/2024 Transportation Answer Date Recorded Has the lack of transportati on kept you from meetings, work, or from getting things needed for daily living? No Has the lack of transportati on kept you from medical appointments or from getting medications? No 03/22/2024 Social Isolation Answer Date Recorded How often do you feel lonely or isolated from th ose around you? Never 03/22/2024 Food Risk Answer Date Recorded Within the past 12 months we worried whether our food would run out before we got money to buy more. Never true 03/22/2024 Within the past 12 months th e food we bought just didn't last and we didn't have money to get more. Never true 03/22/2024 Dependent Care Answer Date Recorded Do you need help finding or paying for care for your loved ones. For example, child abuse worker or elderly care for an older adult? No 03/22/2024 Education Answer Date Recorded Do you think completing more education or training, like finishing a GED, going to college, or learning a trade, would be helpful for you? No 03/22/2024 Employment and Income Answer Date Recor ded During the last four weeks, have you been actively looking for work? No 03/22/2024 Living Situation Answer Date Recorded What is your living situation? 0 03/22/2024 Comments No Sex and Gender Information Value Date Recorded Sex Assigned at Female 06/02/2024 10:19 AM EDT Legal Sex Female 7:39 AM EST Gender Identity Female 06/02/2024 10:19 AM EDT Sexual Orientation Straight 06/02/2024 10 :19 AM EDT Obstetrics History Last Filed Vital Signs Vital Sign Reading Time Taken Comments Blood Pressure 130/75 06/01/2024 1:22 PM EDT Pulse 82 06/01/2024 1:22 PM EDT Temperature 36.8 ??C (98.2 ??F) 05/20/2024 12:04 PM E DT Respiratory Rate 16 05/20/2024 12:04 PM EDT Oxygen Saturation 98% 06/01/2024 1:22 PM EDT Inhaled Oxygen Concentration - - Weight 81.6 kg (180 lb) 06/01/2024 1:22 PM EDT Height 152.4 cm (5') 05/20/2024 11:34 AM EDT Body Mass Index 35.15 05/20/2024 11:34 AM EDT Plan of Treatment Upcoming Encounters Date Type Department Care Team (Late st Contact Info) Description 06/30/2024 12:00 PM EDT Appointment [facility] Endoscopy [address] [place] [phone] Cam Ramírez DO [address] [address] 08/03/2024 8:45 AM EDT Appointment [facility] Xray [address] [place] [phone] 11/17/2024 2:00 PM EDT Appointment Radiology Department - [address] [phone] 11/22/2024 11:00 AM EDT Office Visit Endocrinology - [address] [phone] Mariana Wilkinson MD [address] [place] [address] 11/22/2024 12:00 PM EDT Office Visit Adult Medicine [facility] [address] [place] [phone] Catrina Billings MD [address] [place] [phone] Health Maintenance Due Date Last Done Comments Pneumococcal Vaccine: 50+ Years (1 of 2 - PCV) 08/14/1975 COVID-19 Vaccine ( - season) 2023 02/10/2021, 07/22/2020, 06/24/2020 Falls Risk Assessment 09/14/2024 09/15/2023 Influenza Vaccine (Season Ended) 2024 12/08/2019 Medicare Annual Wellness Visit 11/19/2024 11/20/2023 Hypertension/CHF/CAD Annual BMP Blood Test 03/17/2025 03/17/2024, 12/23/2023, 12/23/2023, Additional history exists Depression Screening 03/22/2025 03/22/2024, 11/20/19 24 Social Influencers of Health Screening 03/22/2025 03/22/2024 Breast Cancer Screening 11/16/2025 11/17/19 24, 11/17/2023, 11/13/2022, Additional history exists DTaP,Tdap,and Td Vaccines (3 - Td or Tdap) 05/27/2027 05/26/2017, 07/23/2005 Colorectal Cancer Screening: Colonoscopy 08/08/2027 08/07/2017 Cholesterol Screening (Lipid Panel) 03/17/2029 03/17/2024, 08/08/2022 RSV Immunization Adult Patients (1 - 1-dose 75+ series) 08/14/2031 Osteoporosis Screening (Bone Density Screening) 03/26/2032 03/26/2022 Hepatitis C Screening Completed 04/18/2017 Zoster Vaccines Completed 03/09/2020, 12/08/2019 HIB Vaccines Aged Out No longer eligi ble based on patient's age to complete this topic HPV Vaccines Aged Out No longer eligi ble based on patient's age to complete this topic Hepatitis A Vaccines Aged Out No long er eligible based on patient's age to complete this topic Hepatitis B Vaccines Aged Out No long er eligible based on patient's age to complete this topic IPV Vaccines Aged Out No longer eligi ble based on patient's age to complete this topic MMR Vaccines Aged Out No longer eligi ble based on patient's age to complete this topic Meningococcal ACWY Vaccine Aged Out N o longer eligible based on patient's age to complete this topic Meningococcal B Vaccine Aged Out No l onger eligible based on patient's age to complete this topic RSV Immunization Patients Under 20 months Aged Out No longer eligible based on patient's age to complete this topic Varicella Vaccines Aged Out No longer eligible based on patient's age to complete this topic Procedures Procedure Name Priority Date/Time Associated Diagnosis Comments VITAMIN D 25 HYDROXY Routine 05/18/2024 12:45 PM EDT Vitamin D deficiency US ABDOMEN COMPLETE Routine 03/25/2024 1 0:57 AM EST Lower abdominal pain VITAMIN B12 Routine 03/22/2024 3:33 PM EST Numbness and tingling of both lower extremities Numbness and tingling of both upper extremities COMPREHENSIVE METABOLIC PANEL Routine 03/17/2024 12:32 PM EST Mixed hyperlipidemia LIPID PANEL WITH REFLEX TO DIRECT LDL Routine 03/17/2024 12:32 PM EST Mixed hyperlipidemia DEPRESSION SCREENING Routine 11/20/2023 SCREENING MAMMOGRAPHY BI 2-VIEW BREAST INC CAD Routine 11/17/2023 1:39 PM EDT Encounter for screening mammogram for malignant neoplasm of breast FALLS RISK ASSESSMENT Routine 09/15/2023 DXA BONE DENSITY STUDY 1+ SITS AXIAL SKEL Routine 03/26/2022 10:56 AM EST Asymptomatic menopausal state HEPATITIS C SCREENING Routine 04/18/2017 from Last 3 Months or Most Recently Relevant to Health Maintenance Results * Vitamin D 25 hydroxy (05/18/2024 12:45 PM EDT) Vit D, 25-Hydroxy 45.3 30.0 - 80.0 ng/mL LAB CHEMISTRY METHOD 05/18/2024 5:04 PM EDT [facility] Blood Venous blood specimen / Unknown Venipuncture / Unknown 05/18/2024 12:45 PM EDT 05/18/2024 12:45 PM EDT us Ashley Reji MORIN LAB BLOOD ORDERABLES Final Resul t [facility] [address] [place] [address], [place] [phone] * US Abdomen Complete (03/25/2024 10:57 AM EST) Anatomical Region Laterality Modality Body Ultrasound 03/25/2024 11:4 5 AM EST Impressions 03/25/2024 2:15 PM EST 1. ??No sonographic abnormality seen at the level of the pain along the lower anterior abdominal wall. 2. ??Sonographic features compatible with hepatic steatosis. -------- FINAL REPORT -------- Dictated By: Ryan Sharpe Dictated Date: 03/25/2024 11:45 ET Assigned Physician: Ryan Sharpe Reviewed and Electronically Signed By: Ryan Sharpe Signed Date: 03/25/2024 14:15 ET Workstation ID: [id number] Transcribed By: Self Edit Transcribed Date: 03/25/2024 12:03 ET Narrative 03/25/2024 2:15 PM EST EXAM: ??US ABDOMEN COMPLETE COMPARISON: None HISTORY: lower abdominal pain TECHNIQUE: Ultrasound examination of the abdomen was performed and multiple static images obtained. FINDINGS: PANCREAS: ??Incompletely visualized due to overlying bowel gas. LIVER: Liver length of 14.5 cm. ??Diffusely increased echogenicity compatible with hepatic steatosis. ?? No focal lesion demonstrated in the provided images. Main Portal Vein: Patent with normal direction of flow. GALLBLADDER/BILIARY: Gallbladder: No gallstones or gallbladder wall thickening. Biliary: No biliary ductal dilatation. The common hepatic duct measures 0.2 cm. Common bile duct is obscured by the overlying gas. SPLEEN: No splenomegaly. KIDNEYS: Right kidney measures 9.8 cm in sagittal dimension. Left kidney measures 10.6 cm in sagittal dimension. Kidneys: No renal stones or hydronephrosis. MIDLINE VASCULATURE: ??The visualized IVC is patent. ?? The aorta is visualized. The maximum visualized aortic diameter is 2.0 cm. Targeted ultrasound was also performed at the location of the pain indicated by the patient throughout the abdominal wall along the midline, below the level of the umbilicus, but above the urinary bladder. ??No sonographic abnormality seen. Procedure Note Ryan Sharpe MD - 03/25/2024 EXAM: US ABDOMEN COMPLETE COMPARISON: None HISTORY: lower abdominal pain TECHNIQUE: Ultrasound examination of the abdomen was performed andmultiple static images obtained. FINDINGS: PANCREAS: Incompletely visualized due to overlying bowel gas. LIVER: Liver length of 14.5 cm. Diffusely increased echogenicitycompatible with hepatic steatosis. No focal lesion demonstrated in theprovided images. Main Portal Vein: Patent with normal direction of flow. GALLBLADDER/BILIARY: Gallbladder: No gallstones or gallbladder wall thickening. Biliary: No biliary ductal dilatation. The common hepatic duct measures0.2 cm. Common bile duct is obscured by the overlying gas. SPLEEN: No splenomegaly. KIDNEYS: Right kidney measures 9.8 cm in sagittal dimension. Left kidney pgfsdxaa41.6 cm in sagittal dimension. Kidneys: No renal stones or hydronephrosis. MIDLINE VASCULATURE: The visualized IVC is patent. The aorta isvisualized. The maximum visualized aortic diameter is 2.0 cm. Targeted ultrasound was also performed at the location of the painindicated by the patient throughout the abdominal wall along the midline,below the level of the umbilicus, but above the urinary bladder. Nosonographic abnormality seen. IMPRESSION: 1. No sonographic abnormality seen at the level of the pain along thelower anterior abdominal wall. 2. Sonographic features compatible with hepatic steatosis. -------- FINAL REPORT -------- Dictated By: Ryan Sharpe Dictated Date: 03/25/2024 11:45 ET Assigned Physician: Ryan Sharpe Reviewed and Electronically Signed By: Ryan Sharpe Signed Date: 03/25/2024 14:15 ET Workstation ID: [id number] Transcribed By: Self Edit Transcribed Date: 03/25/2024 12:03 ET us Ashley Reji MORIN IMG US PROCEDURES Final Result * Vitamin B12 (03/22/2024 3:33 PM EST) Pathologist [facility] Vitamin B-12 351 250 - 900 pcg/mL LAB CHEMISTRY METHOD 03/22/2024 7:35 PM EST [facility] Blood Venous blood specimen / Unknown Venipuncture / Unknown 03/22/2024 3:33 PM EST 03/22/2024 3:33 PM EST us Ashley Reji MORIN LAB BLOOD ORDERABLES Final Resul t [facility] [address] [place] [address], [place] [phone] * (ABNORMAL) Lipid panel with reflex to direct LDL (03/17/2024 12:32 PM EST) [facility] Cholesterol 178 0 - 200 mg/dL LAB CHEMISTRY METHOD 03/17/2024 5:06 PM EST [facility] Triglycerides 164(H) 0 - 150 mg/dL LAB CHEMISTRY METHOD 03/17/2024 5:06 PM EST [facility] HDL 45 >=40 mg/dL LAB CHEMISTRY METHOD 03/17/2024 5:06 PM EST [facility] LDL Calculated 100 0 - 100 mg/dL LAB CHEMISTRY METHOD 03/17/2024 5:06 PM EST [facility] VLDL Cholesterol Darrell 32.8 mg/dL LAB CHEMISTRY METHOD 03/17/2024 5:06 PM EST [facility] Non HDL Chol. (LDL+VLDL) 133 <145 mg/dL LAB CHEMISTRY METHOD 03/17/2024 5:06 PM [facility] Chol/HDL Ratio 4.0 0.0 - 4.4 LAB CHEMISTRY METHOD 03/17/2024 5:06 PM [facility] Blood Venous blood specimen / Unknown Venipuncture / Unknown 03/17/2024 12:32 PM EST 03/17/2024 12:32 PM EST us Ashley Reji MORIN LAB BLOOD ORDERABLES Final Resul t [facility] [address] [place] [address], * (ABNORMAL) Comprehensive metabolic panel (03/17/2024 12:32 PM EST) Sodium 137 133 - 145 mmol/L LAB CHEMISTRY METHOD 03/17/2024 5:06 PM [facility] Potassium 3.7 3.5 - 5.5 mmol/L LAB CHEMISTRY METHOD 03/17/2024 5:06 PM [facility] Chloride 98 96 - 110 mmol/L LAB CHEMISTRY METHOD 03/17/2024 5:06 PM [facility] CO2 33(H) 21 - 32 mmol/L LAB CHEMISTRY METHOD 03/17/2024 5:06 PM [facility] Anion Gap 6 3 - 11 LAB CHEMISTRY METHOD 03/17/2024 5:06 PM [facility] Glucose 128(H) 70 - 100 mg/dL LAB CHEMISTRY METHOD 03/17/2024 5:06 PM [facility] BUN 16 5 - 25 mg/dL LAB CHEMISTRY METHOD 03/17/2024 5:06 PM [facility] Creatinine 0.96 0.50 - 1.10 mg/dL LAB CHEMISTRY METHOD 03/17/2024 5:06 PM [facility] eGFR 65 >=60 mL/min/1. 73m2 LAB CHEMISTRY METHOD 03/17/2024 5:06 PM [facility] Comment:Calculation based on the??Chronic Kidney Disease Epidemiology Collaboration (CKD-EPI) equation refit??without adjustment for race. BUN/Creatinine Ratio 16.7 LAB CHEMISTRY METHOD 03/17/2024 5:06 PM [facility] Calcium 9.5 8.5 - 10.5 mg/dL LAB CHEMISTRY METHOD 03/17/2024 5:06 PM [facility] AST (SGOT) 20 10 - 42 unit/L LAB CHEMISTRY METHOD 03/17/2024 5:06 PM [facility] ALT (SGPT) 35 10 - 60 unit/L LAB CHEMISTRY METHOD 03/17/2024 5:06 PM [facility] Alkaline Phosphatase 124(H) 42 - 121 unit/L LAB CHEMISTRY METHOD 03/17/2024 5:06 PM [facility] Total Protein 7.5 6.0 - 8.0 g/dL LAB CHEMISTRY METHOD 03/17/2024 5:06 PM [facility] Albumin 4.0 3.2 - 5.0 g/dL LAB CHEMISTRY METHOD 03/17/2024 5:06 PM [facility] Total Bilirubin 0.7 0.0 - 1.4 mg/dL LAB CHEMISTRY METHOD 03/17/2024 5:06 PM [facility] Blood Venous blood specimen / Unknown Venipuncture / Unknown 03/17/2024 12:32 PM EST 03/17/2024 12:32 PM EST Ashley MORIN LAB BLOOD ORDERABLES Final Resul t [facility] [address] [place] [address], [place] [phone] * Depression Screening (11/20/2023) [facility] Depression Screening abstracted us Historical Provider [facility] Final Result * SCREENING MAMMOGRAPHY BI 2-VIEW BREAST INC CAD (11/17/2023 1:39 PM EDT) Anatomical Region Laterality Modality Radiographic Luanne ging 11/13/2022 1:01 PM EDT Narrative 11/18/2023 10:14 AM EDT This is a summary report. The complete report is available in the patient's medical record. If you cannot access the medical record, please contact the sending organization for a detailed fax or copy. BILATERAL 3D DIGITAL SCREENING MAMMOGRAM History: Routine screening. ??No current breast complaints. ??Family history of breast cancer in aunt Comparison: Multiple priors dating back to 11/03/2019 Technique: Bilateral full-field digital 3D mammography was performed using standard CC and MLO projections CAD was used to evaluate this mammogram. Findings: Density: ??There are scattered areas of fibroglandular density-B RIGHT: No suspicious masses, groups of microcalcification or areas of architectural distortion identified. Stable typically benign parenchymal asymmetries LEFT: No suspicious masses, groups of microcalcifications or areas of architectural distortion identified. Stable typically benign parenchymal asymmetries. ??Upper outer biopsy marker. IMPRESSION: : 1. ??No mammographic evidence of malignancy. BI-RADS Category 2 benign findings Recommendation: Routine annual screening mammography is recommended [facility] [address] [place] [id number] Procedure Note Ascencion Lucero MD - 12/24/2023 This is a summary report. The complete report is available in thepatient's medical record. If you cannot access the medical record, pleasecontact the sending organization for a detailed fax or copy. BILATERAL 3D DIGITAL SCREENING MAMMOGRAM History: Routine screening. No current breast complaints. Family historyof breast cancer in aunt Comparison: Multiple priors dating back to 11/03/2019 Technique: Bilateral full-field digital 3D mammography was performed usingstandard CC and MLO projections CAD was used to evaluate this mammogram. Findings: Density: There are scattered areas of fibroglandular density-B RIGHT: No suspicious masses, groups of microcalcification or areas ofarchitectural distortion identified. Stable typically benign parenchymalasymmetries LEFT: No suspicious masses, groups of microcalcifications or areas ofarchitectural distortion identified. Stable typically benign parenchymalasymmetries. Upper outer biopsy marker. IMPRESSION: : 1. No mammographic evidence of malignancy. BI-RADS Category 2 benign findings Recommendation: Routine annual screening mammography is recommended [address] [id number] Catrina Billings MD IMG XR PROCEDURES Final Result * Falls Risk Assessment (09/15/2023) Falls Risk Assessment abstracted Historical Provider HEALTH MAINTENANCE Final Result * DXA BONE DENSITY STUDY 1+ SITS AXIAL SKEL (03/26/2022 10:56 AM EST) Anatomical Region Laterality Modality Bone Densitometr y 02/14/2022 10:0 0 AM EST Narrative 03/26/2022 1:49 PM EST BONE DENSITY ? Lumbar Spine T-score is -0.6 ?? (SD relative to 20-29 y/o adult) Z-score is +1.2 ??(SD relative to age matched peers) This is normal by criteria defined by the WHO. Left Hip T-score is -1.4 Z-score is +0.2 This is consistent with osteopenia by criteria defined by the WHO. Impression: Based on the World Health Organization criteria, Billie Baeza should be classified as having osteopenia. This patient has a 8.2% risk of major osteoporotic fracture and a 0.8% risk of hip fracture over the next 10 years. (World Health Organization Fracture Risk Assessment) [facility] Department of Internal Medicine recommends using National Osteoporosis Foundation (NOF) guidelines in treatment decisions related to osteoporosis. NOF guidelines suggest considering treatment for postmenopausal women and men aged 50 or older presenting with the following: History of hip or vertebral fracture. T-score less than or equal to -2.5 (DXA) at the femoral neck, total hip, or spine, after appropriate evaluation to exclude secondary causes. Low bone mass (T-score between -1.0 and -2.5 at the femoral neck or spine) AND a 10-year probability of a hip fracture greater than or equal to 3% OR a 10-year probability of a major osteoporosis-related fracture greater than or equal to 20% based on the [place]-adapted WHO algorithm Please note that all treatment decisions require clinical judgment and consideration of individual patient factors, including patient preferences, co-morbidities, previous drug use, risk factors not captured in the FRAX model (e.g., frailty, falls, vitamin D deficiency, increased bone turnover, interval significant decline in bone density) and possible under- or over-estimation of fracture risk by FRAX. Procedure Note Snow Grider MD - 04/15/2023 BONE DENSITY Lumbar Spine T-score is -0.6 (SD relative to 20-29 y/o adult) Z-score is +1.2 (SD relative to age matched peers) This is normal by criteria defined by the WHO. Left Hip T-score is -1.4 Z-score is +0.2 This is consistent with osteopenia by criteria defined by the WHO. Impression: Based on the World Health Organization criteria, Billie Baeza shouldbe classified as having osteopenia. This patient has a 8.2% risk of majorosteoporotic fracture and a 0.8% risk of hip fracture over the next 10years. (World Health Organization Fracture Risk Assessment) [facility] Department of Internal Medicine recommendsusing National Osteoporosis Foundation (NOF) guidelines in treatmentdecisions related to osteoporosis. NOF guidelines suggest consideringtreatment for postmenopausal women and men aged 50 or older presentingwith the following: History of hip or vertebral fracture. T-score less than or equal to -2.5 (DXA) at the femoral neck, total hip,or spine, after appropriate evaluation to exclude secondary causes. Low bone mass (T-score between -1.0 and -2.5 at the femoral neck or spine)AND a 10-year probability of a hip fracture greater than or equal to 3% ORa 10-year probability of a major osteoporosis-related fracture greaterthan or equal to 20% based on the [place]-adapted WHO algorithm Please note that all treatment decisions require clinical judgment andconsideration of individual patient factors, including patientpreferences, co-morbidities, previous drug use, risk factors not capturedin the FRAX model (e.g., frailty, falls, vitamin D deficiency, increasedbone turnover, interval significant decline in bone density) and possibleunder- or over-estimation of fracture risk by FRAX. Luba MORIN IMG DXA PROCEDURES Final Result * Hepatitis C Screening (04/18/2017) [facility] Hepatitis C Screening abstracted Historical Provider HEALTH MAINTENANCE Final Result from Last 3 Months or Most Recently Relevant to Health Maintenance Insurance MEDICARE [facility] Care Teams Online Affiliate Marketing Manager Relationship Specialty Start Date End Date Catrina Billings MD [address] [place] [id number] PCP - General Internal Medicine 10/15/21
--- OUTSIDE RECORDS SUMMARY | 2024-06-16 16:27 | XMS_ITS | Continuity of Care Document ---
Author Name [facility] Organization [facility] Care Team Providers Care Flavoring Maker Name Role Phone [facility] Unavailable Unavailable Immunizations Combined list of available immunizations from the Department of Defense and Veterans Affairs facilities. Immunization Series Date Given Administered By Site Reaction Lot Number [id number] Code Drug Electroplater Automatic Status Comments Source COVID-19 (MODERNA), MRNA, LNP-S, PF, 100 MCG OR 50 MCG DOSE 3 2020 207 complet ed MOD; [id number]; 2 [facility] [place] [facility] COVID-19 (MODERNA), MRNA, LNP-S, PF, 100 MCG/0.5 ML DOSE 2 2020 207 complet ed MOD; [id number]; 1 [facility] [place] [facility] COVID-19 (MODERNA), MRNA, LNP-S, PF, 100 MCG/0.5 ML DOSE 1 2020 207 complet ed MOD; [id number]; 1 [facility] [place] [facility]
== END 2024-06-16 14:10 | disposition home or self-care (01) ==
LOC: HO.NEURO 14:09
PROVIDERS: PCP Internal Medicine; Visit Provider Physical Medicine & Rehabilitation
DX: G57.93 Unspecified mononeuropathy of bilateral lower limbs (principal); R20.0 Anesthesia of skin
CPT/HCPCS: 95860; 95886; 95909

== ENCOUNTER → 2024-06-16 14:12 | Outpatient (BNV) | payer MEDICARE, OTHER, BC, SELFPAY | PROVIDERS: PCP Internal Medicine; Visit Provider Physical Medicine & Rehabilitation | DX: R20.0 Anesthesia of skin (principal); R20.2 Paresthesia of skin; G62.89 Other specified polyneuropathies | CPT/HCPCS: 95886; 95909 ==

== ENCOUNTER 2024-09-03 09:58 | Outpatient (AMB) | payer MEDICARE, OTHER, BC, SELFPAY ==
[2024-09-03 10:02] VITALS: BMI 34.2
--- NOTE | 2024-09-03 10:02 | A.OFFVIS_ITS ---
Vital Signs 09/03/24 10:02 Height 5 ft Weight 175 lb BMI 34.2 Intake Visit Reasons: OV-B/L lower extremity NCS/EMG review Intake Note: Billie is a 69 year old female who presents today for a follow up of Bilateral lower extremity NCS/EMG review done on 06/16/24. Patient states that for the last month to two months she has noticed at night time is when her B/L legs pain increases. She notes that the leg pain feels like restless and that she feels the need to constantly stretch her legs out. Allergies cefuroxime Allergy (Verified 09/03/24 10:08) Nausea codeine (CODEINE) Adverse Reaction (Intermediate, Verified 09/03/24 10:08) NAUSAEA Medication List - Last Reconciled 09/03/24 by Jacqueline Smith MD atorvastatin 20 mg PO DAILY carvedilol 12.5 mg PO BID chlorthalidone 25 mg PO DAILY ergocalciferol (vitamin D2) 1,250 mcg PO QWEEK esomeprazole magnesium (Nexium 24HR) 20 mg PO DAILY methimazole 2.5 mg PO DAILY tacrolimus 0.03% 1 appl topical BID HPI Comments Details: She says that the numbness has been good since June. No cramps. Told by PCP to be prediabetic. Vitamin D is normal now. History of hyperthyroid. Scheduled to see PCP this year. Still with lower back pain, midline, been getting spasms on lower back. Whenever she bends over, she cramps on right side. She is getting restless legs . [facility] Medical History Hyperthyroidism Hypertension Surgical History H/O hemorrhoidectomy (~03/06/23) History of lumpectomy History of hysterectomy Social History Patient Tobacco Use Status: Former Tobacco user Current occupational status: retired Current occupation: rt handed Physical Exam Vital Signs: BMI result Body Mass Index 34.2 Constitutional: Patient appears to be in no acute distress, well nourished and well developed. Patient was appropriately conversant and oriented. Good historian. MSK: Inspection reveals appropriate head and neck positioning. No specific abnormalities found on inspection of the spine and all extremities. Indicates that pain is midline lumbar lower. There is some tenderness over bilateral SI joints. Lumbar ROM was full. Strength is 5/5 in all muscle groups tested. No increased tone noted. Neurological: Mood appears normal, good affect, and appropriate for the circumstances. Neurologic examination of the upper and lower extremities was nonfocal with intact sensation, muscle stretch reflexes and without focal motor deficits. Babinski was down going bilaterally. Clonus was negative. Gait is non-antalgic without loss of balance. Results Reviewed Results Reviewed: EMG 06/16/24 IMPRESSION: 1. This is an abnormal study. 2. Because both sensory and motor nerve conduction studies are abnormal, this is suggestive of peripheral neuropathy. 3. However denervation appears more pronounced on right leg. Either this is an asymmetric type of peripheral neuropathy or there is an underlying right-sided lumbar radiculopathy L5-S1. Ordering Physician: Jacqueline Estrella Date of Service: 11/13/23 Procedure(s): XR lumbar spine 2-3V Accession Number(s): [id number] cc: LASHON SHETH NP; Jacqueline Estrella EXAMINATION: XR LUMBOSACRAL SPINE CLINICAL INFORMATION: Low back pain. COMPARISON: None available. TECHNIQUE: AP and lateral views of the lumbar spine and lateral view of the lumbosacral junction. FINDINGS: Mild anterolisthesis of L4 on L5 (2 mm). No additional spondylolisthesis. Mild degenerative disc disease in the lumbar spine at L3-L4 and L4-L5 characterized by loss of intervertebral disc height and endplate osteophytes. There is moderate facet arthropathy at these levels as well. Vertebral body heights are normal. No fractures. SI joints are unremarkable. Atherosclerotic calcifications are present in the abdominal aorta and iliac arteries. XR/XR lumbar spine 2-3V IMPRESSION: 1. Mild degenerative disc disease and moderate facet arthropathy at L3-L4 and L4-L5. 2. Mild anterolisthesis of L4 on L5. Electronically signed by: Yayo Dye MD 12/01/2023 11:10 PM EDT Ordering Physician: Vida Robbins PA-C Date of Service: 10/06/23 Procedure(s): XR hip RT min 2V Accession Number(s): [id number] cc: RosendoVidaronaldo Vasquez PA-C~ EXAMINATION: XR HIP, RIGHT CLINICAL INFORMATION: Pain in hip COMPARISON: None available. TECHNIQUE: Two views of the right hip. FINDINGS: No fracture. Alignment is anatomic. Hip joint space is maintained. Soft tissues are unremarkable. XR/XR hip RT min 2V IMPRESSION: Normal right hip. Assessment & Plan Assessment & Plan (1) Neuropathy: Code(s): G62.9 - Polyneuropathy, unspecified Category: Medical Plan: Numbness resolved. We talked about common etiology for neuropathy including but not limited to diabetes, thyroid disorders, vitamin deficiencies. (2) Sacroiliac joint dysfunction of right side: Code(s): M53.3 - Sacrococcygeal disorders, not elsewhere classified Category: Medical (3) Lumbar spondylosis: Code(s): M47.816 - Spondylosis without myelopathy or radiculopathy, lumbar region Category: Medical Plan We agreed that as long as lower back pain is manageable with as-needed Tylenol, home exercises and PT, and there are no red flags, we do not need to get a lumbar MRI. She is not looking for any injections or surgery anyway. If that should change, patient will call our office immediately. Continue home exercises. Would be reasonable to return to PT once a year for adjustments. Assessment and plan discussed with patient, and patient was agreeable. All ques tions were answered thoroughly. Jacqueline Smith MD, NIXON Board Certified, [place] [employer] and Rehabilitation (ABPMR) Board Certified, [place] [employer] Electrodiagnostic [employer] (ABEM) Coding Level of Care Code Est Pt Level 3 (01532) Diagnoses Neuropathy G62.9 Sacroiliac joint dysfunction of right side M53.3 Lumbar spondylosis M47.816
--- OUTSIDE RECORDS SUMMARY | 2024-09-03 10:32 | XMS_ITS | Clinical Summary ---
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 Active GENERIC EXTERNAL MEDICATION Nifedipine 0.3% ointment Apply as a thin film TID to the perianal skin 4 Active ibuprofen (ADVIL,MOTRIN) 600 mg tablet TAKE 1 TABLET BY MOUTH 3 TIMES A DAY NEEDED 3 Active atorvastatin (LIPITOR) 20 mg tablet Take 1 tablet (20 mg total) by mouth 1 (one) time each day. 90 tablet 1 4 Active chlorthalidone (HYGROTON) 25 mg tablet Take 1 tablet (25 mg total) by mouth 1 (one) time each day. 90 tablet 1 4 Active methIMAzole (TAPAZOLE) 5 mg tabletIndicatio ns:Thyrotoxicos is, unspecified without thyrotoxic crisis or storm Take 0.5 tablets (2.5 mg total) by mouth every other day. 45 tablet 1 5 Active sodium,potassiu m,mag sulfates (Suprep Bowel Prep Kit) 17.5-3.13-1.6 gram recon soln bowel prep kit oral solution Take 177ML by mouth for 2 doses. SEE INSTRUCTIONS PROVIDED BY OFFICE. 1 kit 5 Active sodium,potassiu m,mag sulfates (Suprep Bowel Prep Kit) 17.5-3.13-1.6 gram recon soln bowel prep kit oral solution Take 177ML by mouth for 2 doses. SEE INSTRUCTIONS PROVIDED BY OFFICE. 1 kit 5 Active carvediloL (COREG) 12.5 mg tablet TAKE 1 TABLET BY MOUTH TWICE A DAY WITH MEALS 180 tablet 5 Active levocetirizine (XYZAL) 5 mg tablet Take by mouth 1 (one) time each day in the evening. Active carboxymethylce llulose 1 % ophthalmic solution 1 drop 3 (three) times a day. Active Active Problems Problem Noted Date Diagnosed Date [...] Based on the World Health Organization criteria, Neva Lubin should be classified as having osteopenia. This patient has a 8.2% risk of major osteoporotic fracture and a 0.8% risk of hip fracture over the next 10 years. (World Health Organization Fracture Risk Assessment) The [facility] Department of Internal Medicine recommends using [...] Encounters Date Type Department Care Team Description 08/03/2024 8:30 AM EDT - 08/03/2024 11:59 PM EDT Hospital Encounter [facility] Xray [address] [place] [phone] Globus sensation Discharge Disposition: Home or Self Care 06/30/2024 12:27 PM EDT Anesthesia Event [facility] Endoscopy [address] [place] [phone] Checo Neumann DO 06/30/2024 11:01 AM EDT - 06/30/2024 11:59 PM EDT Hospital Encounter [facility] Endoscopy [address] [place] [phone] Karthikeyan Ramírez DO Dusza, Sara, Checo Yang DO History of adenomatous polyp of colon Discharge Disposition: Home or Self Care from Last 3 Months Immunizations Name Administration [...] 5 years. UPPER GASTROINTESTINAL ENDOSCOPY 10/03/2005 PROCEDURE: HI UPPER GI ENDOSCOPY PERFORMED; COMMENT: Normal with normal duodenal biopsies. COLONOSCOPY 08/07/2017 PROCEDURE: HISTORICAL COLONOSCOPY; COMMENT: 13 mm cecal polyp: Tubular adenoma. 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 For example, child care associate teacher or elderly care for an older adult? [...] What is your living situation? 0 03/22/2024 Interpersonal Safety Answer Date Record ed Physical Abuse 06/30/2024 Verbal Abuse 06/30/2024 Comments No Sex and Gender Information Value Date Recorded Sex Assigned at Female 06/02/2024 10:19 AM EDT Legal Sex Female 7:39 AM EST Gender Identity Female 06/02/2024 10:19 AM EDT Sexual Orientation Straight 06/02/2024 10 :19 AM EDT Obstetrics History Last Filed Vital Signs Vital Sign Reading Time Taken Comments Blood Pressure 122/62 06/30/2024 1:11 PM EDT Pulse 62 06/30/2024 1:11 PM EDT Temperature 36.9 C (98.5 F) 06/30/2024 12:00 PM EDT Respiratory Rate 18 06/30/2024 1:11 PM EDT Oxygen Saturation 99% 06/30/2024 1:11 PM EDT Inhaled Oxygen Concentration - - Weight 79.4 kg (175 lb) 06/30/2024 12:00 PM EDT Height 152.4 cm (5') 06/30/2024 12:00 PM EDT Body Mass Index 34.18 06/30/2024 12:00 PM EDT Plan of Treatment Upcoming Encounters Date Type Department Care Team (Late st Contact Info) Description 11/17/2024 2:00 PM EDT Appointment Radiology Department - [address] [phone] 11/22/2024 11:00 AM EDT Office Visit Endocrinology - [address] [phone] Mariana Wilkinson MD [address] [place] [phone] 11/22/2024 12:00 PM EDT Office Visit [facility] - [address] [phone] Catrina Billings MD [address] [place] [address] Health Maintenance Due Date Last Done Comments Pneumococcal Vaccine: 50+ Years (1 of 2 - PCV) 08/14/1975 COVID-19 Vaccine ( - season) 2023 02/10/2021, 07/22/2020, 06/24/2020 Influenza Vaccine (Season Ended) 2024 12/08/2019 Medicare Annual Wellness Visit 11/19/2024 11/20/2023 Hypertension/CHF/CAD Annual BMP Blood Test 03/17/2025 03/17/2024, 12/23/2023, 12/23/2023, Additional history exists Depression Screening 03/22/2025 03/22/2024, 11/20/19 24 Social Influencers of Health Screening 03/22/2025 03/22/2024 Falls Risk Assessment 06/30/2025 06/30/2024, 024 Breast Cancer Screening 11/16/2025 11/17/19 24, 11/17/2023, 11/13/2022, Additional history exists DTaP,Tdap,and Td Vaccines (3 - Td or Tdap) 05/27/2027 05/26/2017, 07/23/2005 Colorectal Cancer Screening: Colonoscopy 07/01/2027 06/30/2024, 08/07/2017 Cholesterol Screening (Lipid Panel) 03/17/2029 03/17/2024, [...] Procedure Name Priority Date/Time Associated Diagnosis Comments XR ESOPHAGRAM Routine 08/03/2024 8:59 AM EDT Globus sensation TISSUE EXAM Routine 06/30/2024 12:41 PM EDT History of adenomatous polyp of colon COLONOSCOPY Routine 06/30/2024 11:59 AM EDT History of adenomatous polyp of colon COMPREHENSIVE METABOLIC PANEL Routine 03/17/2024 12:32 PM [...] Recently Relevant to Health Maintenance Results * XR Esophagram (08/03/2024 8:59 AM EDT) Anatomical Region Laterality Modality Head and Neck Radiographic Luanne ging 08/03/2024 12:0 6 PM EDT Impressions 08/03/2024 12:39 PM EDT Small, sliding, axial hiatal hernia without visualized gastroesophageal reflux, otherwise unremarkable double contrast esophagram. -------- FINAL REPORT -------- Dictated By: Jessica De Guzman Dictated Date: 08/03/2024 12:06 ET Assigned Physician: Yann Avendano Reviewed and Electronically Signed By: Yann Avendano Signed Date: 08/03/2024 12:39 ET Workstation ID: [id number] Transcribed By: Self Edit Transcribed Date: 08/03/2024 12:23 ET Resident/PA/IRRIGATION SPECIALIST: Jessica De Guzman Narrative 08/03/2024 12:39 PM EDT FINDINGS: Double contrast esophagram performed. COMPARISON: None HISTORY: Patient is a 68-year-old female with history of globus sensation. Bending Roll Operator radiographs: 1 view chest radiograph demonstrates cardiac and mediastinal contours within normal limits. Lungs are hypoinflated but clear bilaterally. Costophrenic angles are sharp. Mild bony degenerative changes of the thoracolumbar spine. 1 view lateral soft tissue neck demonstrates no prevertebral soft tissue masses. Airway is widely patent. Anterior osteophyte formation is noted to C4-5. Nuchal ligament is calcified. Effervescent crystals were administered orally. Thick and thin barium were administered orally under fluoroscopic control. Pharyngoesophagram: Rapid sequence imaging of the hypopharynx during swallowing demonstrates prompt initiation of swallowing. There is normal soft palate elevation and normal epiglottic motion. There is no laryngeal penetration or nakia aspiration. There is no residual in the vallecula nor in the piriform sinuses. Thoracic esophagus: Normal distensibility, motility and mucosal pattern without evidence of ulceration, stricture or mass formation. Hiatal hernia: There is a small, sliding, axial hiatal hernia Reflux: Unable to elicit 13 mm Barium pill: Swallowed without difficulty. Prompt passage of pill from the esophagus into the stomach. Air kerma: 44.3 mGy Procedure Note Yann Avendano MD - 08/03/2024 FINDINGS: Double contrast esophagram performed. COMPARISON: None HISTORY: Patient is a 68-year-old female with history of globussensation. Bending Roll Operator radiographs: 1 view chest radiograph demonstrates cardiac andmediastinal contours within normal limits. Lungs are hypoinflated butclear bilaterally. Costophrenic angles are sharp. Mild bony degenerativechanges of the thoracolumbar spine. 1 view lateral soft tissue neck demonstrates no prevertebral soft tissuemasses. Airway is widely patent. Anterior osteophyte formation is noted toC4-5. Nuchal ligament is calcified. Effervescent crystals were administered orally. Thick and thin barium wereadministered orally under fluoroscopic control. Pharyngoesophagram: Rapid sequence imaging of the hypopharynx duringswallowing demonstrates prompt initiation of swallowing. There is normalsoft palate elevation and normal epiglottic motion. There is no laryngealpenetration or nakia aspiration. There is no residual in the vallecula norin the piriform sinuses. Thoracic esophagus: Normal distensibility, motility and mucosal patternwithout evidence of ulceration, stricture or mass formation. Hiatal hernia: There is a small, sliding, axial hiatal hernia Reflux: Unable to elicit 13 mm Barium pill: Swallowed without difficulty. Prompt passage of pillfrom the esophagus into the stomach. Air kerma: 44.3 mGy IMPRESSION: Small, sliding, axial hiatal hernia without visualized gastroesophagealreflux, otherwise unremarkable double contrast esophagram. -------- FINAL REPORT -------- Dictated By: Jessica De Guzman Dictated Date: 08/03/2024 12:06 ET Assigned Physician: Yann Avendano Reviewed and Electronically Signed By: Yann Avendano Signed Date: 08/03/2024 12:39 ET Workstation ID: [id number] Transcribed By: Self Edit Transcribed Date: 08/03/2024 12:23 ET Resident/PA/IRRIGATION SPECIALIST: Jessica De Guzman Roxann Montenegro NP IMG FLUOROSCOPY PROCEDURES Ananya l Result * Tissue exam (06/30/2024 12:41 PM EDT) Final Diagnosis A. Polyp, cecum, polypectomy: - Tubular adenoma (fragmented). B. Polyp, ascending colon, polypectomy: - Tubular adenoma. C. Polyp, sigmoid colon, polypectomy: - Hyperplastic polyp. Note: According to the endoscopy report, polyps were present in the cecum (20 mm), at the appendiceal orifice (10 mm) and in the sigmoid colon (3 mm). Correlation with endoscopic findings for the exact site of the polyp designated as ascending colon on the specimen label (part B) is recommended. 07/01/2024 12:48 PM EDT [facility] Gross Description A. Large Intestine, Cecum, polypx1: Labeled colon cecum polyp x 1 . Received in formalin are multiple irregular rubi mucosal tissue fragments, ranging from less than 0.1 cm to 0.3 cm in greatest dimension, which are wrapped in paper and submitted in toto in two cassettes, six pieces and multiple pieces, respectively, multiple levels on the slide. B. Large Intestine, Right/Ascending Colon, polyp x1: Labeled ascending colon polyp x 1 . Received in formalin is a 0.8 cm pink-red mucosal polyp. The resection margin is inked blue. The polyp is bisected, wrapped in paper, and entirely submitted in one cassette, two pieces, multiple levels on one slide. C. Large Intestine, Sigmoid Colon, polyp x1: Labeled Sig colon polyp x 1 . Received in formalin is a 0.3 cm irregular rubi mucosal tissue fragment which is wrapped in paper and submitted in toto in one cassette, one piece, multiple levels on one slide. DEBBIE 07/01/2024 12:48 PM EDT [facility] Disclaimer Unless otherwise specified, all tissue is 10% NB formalin fixed and paraffin embedded. 07/01/2024 12:48 PM EDT [facility] Tissue Cecum structure / Unknown 06/30/2024 12:41 PM EDT 06/30/2024 2:17 PM EDT Tissue specimen (specimen) Ascending colon structure / Unknown 06/30/2024 12:42 PM EDT 06/30/2024 2:17 PM EDT Tissue specimen (specimen) Sigmoid colon structure / Unknown 06/30/2024 12:46 PM EDT 06/30/2024 2:17 PM EDT Karthikeyan Ramírez DO LAB PATHOLOGY ORDERABLES Final R esult [facility] [address] [place] [address], * COLONOSCOPY Anesthesia - MAC; [facility] ENDOSCOPY (06/30/2024 11:59 AM EDT) Anatomical Region Laterality Modality Endoscopy 06/30/2024 11:5 9 AM EDT Impressions 06/30/2024 12:51 PM EDT - Hemorrhoids found on perianal exam. - One 20 mm polyp in the cecum, removed with a hot snare. Resected and retrieved. Injected. - One 10 mm polyp at the appendiceal orifice, removed with a hot snare. Resected and retrieved. - One 3 mm polyp in the sigmoid colon, removed with a cold snare. Resected and retrieved. Recommendation: - - Discharge patient to home. - High fiber diet. - Continue present medications. - Await pathology results. - Repeat colonoscopy for surveillance based on pathology results. Narrative 06/30/2024 12:51 PM EDT [facility] GI Patient Name: Neva Lubin Procedure Date: 06/30/2024 11:59 AM Date of : 1955 Age: 68 Gender: Female Note Status: Finalized Attending MD: Karthikeyan Ramírez DO, [id number] Procedure Date No Time: 06/30/2024 Procedure: Colonoscopy Indications: Screening for colorectal malignant neoplasm Providers: Karthikeyan Ramírez DO Referring MD: Karthikeyan Ramírez DO, Lina MARIA Parra jaramillo, MD Medicines: Monitored Anesthesia Care Complications: No immediate complications. Estimated blood loss: Minimal. Estimated Blood Loss: Estimated blood loss was minimal. Procedure: Pre-Anesthesia Assessment: - - Prior to the procedure, a History and Physical was performed, and patient medications and allergies were reviewed. The patient is competent. The risks and benefits of the procedure and the sedation options and risks were discussed with the patient. All questions were answered and informed consent was obtained. Patient identification and proposed procedure were verified by the physician, the nurse, the anesthesiologist, the branch coordinator and the facilities technician in the pre-procedure area in the endoscopy suite. Mental Status Examination: alert and oriented. Airway Examination: normal oropharyngeal airway and neck mobility. Respiratory Examination: clear to auscultation. CV Examination: normal. Prophylactic Antibiotics: The patient does not require prophylactic antibiotics. Prior Anticoagulants: The patient has taken no anticoagulant or antiplatelet agents. ASA Grade Assessment: II - A patient with severe systemic disease. After reviewing the risks and benefits, the patient was deemed in satisfactory condition to undergo the procedure. The anesthesia plan was to use monitored anesthesia care (MAC). Immediately prior to administration of medications, the patient was re-assessed for adequacy to receive sedatives. The heart rate, respiratory rate, oxygen saturations, blood pressure, adequacy of pulmonary ventilation, and response to care were monitored throughout the procedure. The physical status of the patient was re-assessed after the procedure. After I obtained informed consent, the scope was passed under direct vision. Throughout the procedure, the patient's blood pressure, pulse, and oxygen saturations were monitored continuously.The Colonoscope was introduced through the anus and advanced to the terminal ileum, with identification of the appendiceal orifice and IC valve. The Olympus Pediatric Colonoscope was introduced through the anus and advanced to the cecum, identified by appendiceal orifice and ileocecal valve. The colonoscopy was performed without difficulty. The patient tolerated the procedure well. The quality of the bowel preparation was good. The ileocecal valve, appendiceal orifice, and rectum were photographed. Findings: Hemorrhoids were found on perianal exam. A 20 mm polyp was found in the cecum. The polyp was sessile. Area was successfully injected with 2 mL of a 0.1 mg/mL solution of epinephrine for a lift polypectomy. The polyp was removed with a hot snare. Resection and retrieval were complete. Estimated blood loss was minimal. A 10 mm polyp was found in the appendiceal orifice. The polyp was semi-pedunculated. The polyp was removed with a hot snare. Resection and retrieval were complete. Estimated blood loss was minimal. A 3 mm polyp was found in the sigmoid colon. The polyp was sessile. The polyp was removed with a cold snare. Resection and retrieval were complete. Estimated blood loss was minimal. Procedure Code(s): --- Professional --- 01223, Colonoscopy, flexible; with removal of tumor(s), polyp(s), or other lesion(s) by snare technique [id number], Colonoscopy, flexible; with directed submucosal injection(s), any substance Diagnosis Code(s): --- Professional --- Z12.11, Encounter for screening for malignant neoplasm of colon K64.9, Unspecified hemorrhoids D12.0, Benign neoplasm of cecum D12.1, Benign neoplasm of appendix D12.5, Benign neoplasm of sigmoid colon CPT copyright 2020 [employer]. All rights reserved. The codes documented in this report are preliminary and upon hop picker review may be revised to meet current compliance requirements. KARTHIKEYAN Ramírez DO 06/30/2024 12:51:29 PM This report has been signed electronically.Karthikeyan Ramírez DO Number of Addenda: 0 Note Initiated On: 06/30/2024 11:59 AM Scope Withdrawal Time: 0 hours 11 minutes 32 seconds Scope In: 12:32:34 PM Scope Out: 12:47:45 PM Endoscopy Department at [facility] - [address] [place] [phone] Procedure Note Karthikeyan Ramírez DO - 06/30/2024 [facility] GI Patient Name: Neva Lubin Procedure Date: 06/30/2024 11:59 AM Date of : 1955 Age: 68 Gender: Female Note Status: Finalized Attending MD: Karthikeyan Ramírez DO, [id number] Procedure Date No Time: 06/30/2024 Procedure: Colonoscopy Indications: Screening for colorectal malignant neoplasm Providers: Karthikeyan Ramírez DO Referring MD: Karthikeyan Ramírez DO, Lina MARIA Parra jaramillo, MD Medicines: Monitored Anesthesia Care Complications: No immediate complications. Estimated blood loss: Minimal. Estimated Blood Loss: Estimated blood loss was minimal. Procedure: Pre-Anesthesia Assessment: - - Prior to the procedure, a History and Physicalwas performed, and patient medications and allergieswere reviewed. The patient is competent. The risks and benefits of the procedure and the sedation optionsand risks were discussed with the patient. Allquestions were answered and informed consent was obtained. Patient identification and proposed procedure were verified by the physician, the nurse, the anesthesiologist, the branch coordinator and thetechnician in the pre-procedure area in the endoscopy suite. Mental Status Examination: alert and oriented.Airway Examination: normal oropharyngeal airway and neck mobility. Respiratory Examination: clear to auscultation. CV Examination: normal. Prophylactic Antibiotics: The patient does not requireprophylactic antibiotics. Prior Anticoagulants: The patient has taken no anticoagulant or antiplatelet agents. ASA Grade Assessment: II - A patient with severesystemic disease. After reviewing the risks and benefits,the patient was deemed in satisfactory condition to undergo the procedure. The anesthesia plan was touse monitored anesthesia care (MAC). Immediately priorto administration of medications, the patient was re-assessed for adequacy to receive sedatives. The heart rate, respiratory rate, oxygen saturations, blood pressure, adequacy of pulmonary ventilation,and response to care were monitored throughout the procedure. The physical status of the patient was re-assessed after the procedure. After I obtained informed consent, the scope was passed under direct vision. Throughout theprocedure, the patient's blood pressure, pulse, and oxygen saturations were monitored continuously.The Colonoscope was introduced through the anus and advanced to the terminal ileum, with identificationof the appendiceal orifice and IC valve. The Olympus Pediatric Colonoscope was introduced through theanus and advanced to the cecum, identified byappendiceal orifice and ileocecal valve. The colonoscopy was performed without difficulty. The patient tolerated the procedure well. The quality of the bowel preparation was good. The ileocecal valve,appendiceal orifice, and rectum were photographed. Findings: Hemorrhoids were found on perianal exam. A 20 mm polyp was found in the cecum. The polyp was sessile. Area was successfully injected with 2 mLof a 0.1 mg/mL solution of epinephrine for a lift polypectomy. The polyp was removed with a hotsnare. Resection and retrieval were complete. Estimatedblood loss was minimal. A 10 mm polyp was found in the appendiceal orifice. The polyp was semi-pedunculated. The polyp wasremoved with a hot snare. Resection and retrieval were complete. Estimated blood loss was minimal. A 3 mm polyp was found in the sigmoid colon. Thepolyp was sessile. The polyp was removed with a coldsnare. Resection and retrieval were complete. Estimatedblood loss was minimal. Procedure Code(s): --- Professional --- 05201, Colonoscopy, flexible; with removal of tumor(s), polyp(s), or other lesion(s) by snare technique [id number], Colonoscopy, flexible; with directedsubmucosal injection(s), any substance Diagnosis Code(s): --- Professional --- Z12.11, Encounter for screening for malignantneoplasm of colon K64.9, Unspecified hemorrhoids D12.0, Benign neoplasm of cecum D12.1, Benign neoplasm of appendix D12.5, Benign neoplasm of sigmoid colon CPT copyright 2020 [employer]. All rights reserved. The codes documented in this report are preliminary and upon hop picker reviewmay be revised to meet current compliance requirements. KARTHIKEYAN Ramírez DO 06/30/2024 12:51:29 PM This report has been signed electronically.Karthikeyan Ramírez DO Number of Addenda: 0 Note Initiated On: 06/30/2024 11:59 AM Scope Withdrawal Time: 0 hours 11 minutes 32 seconds Scope In: 12:32:34 PM Scope Out: 12:47:45 PM Endoscopy Department at [facility] - [address] [place] [phone] IMPRESSION: - Hemorrhoids found on perianal exam. - One 20 mm polyp in the cecum, removed with a hot snare. Resected and retrieved. Injected. - One 10 mm polyp at the appendiceal orifice,removed with a hot snare. Resected and retrieved. - One 3 mm polyp in the sigmoid colon, removed witha cold snare. Resected and retrieved. Recommendation: - - Discharge patient to home. - High fiber diet. - Continue present medications. - Await pathology results. - Repeat colonoscopy for surveillance based on pathology results. Karthikeyan Ramírez DO GI~PROCEDURE ORDERABLES Final Re sult * (ABNORMAL) Lipid panel with reflex to direct LDL (03/17/2024 12:32 PM EST) Cholesterol 178 0 - 200 mg/dL LAB CHEMISTRY METHOD 03/17/2024 5:06 PM [facility] Triglycerides 164(H) 0 - 150 mg/dL LAB CHEMISTRY METHOD 03/17/2024 5:06 PM [facility] HDL 45 >=40 mg/dL LAB CHEMISTRY METHOD 03/17/2024 5:06 PM [facility] LDL Calculated 100 0 - 100 mg/dL LAB CHEMISTRY METHOD 03/17/2024 5:06 PM [facility] VLDL Cholesterol Darrell 32.8 mg/dL LAB CHEMISTRY METHOD 03/17/2024 5:06 PM [facility] Non HDL Chol. (LDL+VLDL) 133 <145 mg/dL LAB CHEMISTRY METHOD 03/17/2024 5:06 PM [facility] Chol/HDL Ratio 4.0 0.0 - 4.4 LAB CHEMISTRY METHOD 03/17/2024 5:06 PM [facility] Blood Venous blood specimen / Unknown Venipuncture / Unknown 03/17/2024 12:32 PM EST 03/17/2024 12:32 PM EST Ashley MORIN LAB BLOOD ORDERABLES Final Resul t [facility] [address] [place] [address], [place] [phone] * (ABNORMAL) Comprehensive metabolic panel (03/17/2024 12:32 PM EST) Sodium 137 133 - 145 mmol/L LAB CHEMISTRY METHOD 03/17/2024 5:06 PM [facility] Potassium 3.7 3.5 - 5.5 mmol/L LAB CHEMISTRY METHOD 03/17/2024 5:06 PM [facility] Chloride 98 96 - 110 mmol/L LAB CHEMISTRY METHOD 03/17/2024 5:06 PM [facility] CO2 33(H) 21 - 32 mmol/L LAB CHEMISTRY METHOD 03/17/2024 5:06 PM [facility] Anion Gap 6 3 - 11 LAB CHEMISTRY METHOD 03/17/2024 5:06 PM [facility] Glucose 128(H) 70 - 100 mg/dL LAB CHEMISTRY METHOD 03/17/2024 5:06 PM [facility] BUN 16 5 - 25 mg/dL LAB CHEMISTRY METHOD 03/17/2024 5:06 PM [facility] Creatinine 0.96 0.50 - 1.10 mg/dL LAB CHEMISTRY METHOD 03/17/2024 5:06 PM [facility] eGFR 65 >=60 mL/min/1. 73m2 LAB CHEMISTRY METHOD 03/17/2024 5:06 PM [facility] Comment:Calculation based on the Chronic Kidney Disease Epidemiology Collaboration (CKD-EPI) equation refit without adjustment for race. BUN/Creatinine Ratio 16.7 LAB CHEMISTRY METHOD 03/17/2024 5:06 PM [facility] Calcium 9.5 8.5 - 10.5 mg/dL LAB CHEMISTRY METHOD 03/17/2024 5:06 PM [facility] AST (SGOT) 20 10 - 42 unit/L LAB CHEMISTRY METHOD 03/17/2024 5:06 PM [facility] ALT (SGPT) 35 10 - 60 unit/L LAB CHEMISTRY METHOD 03/17/2024 5:06 PM [facility] Alkaline Phosphatase 124(H) 42 - 121 unit/L LAB CHEMISTRY METHOD 03/17/2024 5:06 PM EST [facility] Total Protein 7.5 6.0 - 8.0 g/dL LAB CHEMISTRY METHOD 03/17/2024 5:06 PM EST [facility] Albumin 4.0 3.2 - 5.0 g/dL LAB CHEMISTRY METHOD 03/17/2024 5:06 PM EST [facility] Total Bilirubin 0.7 0.0 - 1.4 mg/dL LAB CHEMISTRY METHOD 03/17/2024 5:06 PM EST [facility] Blood Venous blood specimen / Unknown Venipuncture / Unknown 03/17/2024 12:32 PM EST 03/17/2024 12:32 PM EST us Ashley Reji MORIN LAB BLOOD ORDERABLES Final Resul t [facility] [address] [place] [address], * Depression Screening (11/20/2023) Depression Screening abstracted Historical Provider HEALTH MAINTENANCE Final Result * SCREENING MAMMOGRAPHY BI 2-VIEW [...] Routine screening. No current breast complaints. Family history of breast cancer in aunt Comparison: [...] distortion identified. Stable typically benign parenchymal asymmetries. Upper outer biopsy marker. IMPRESSION: : 1. No mammographic evidence of malignancy. BI-RADS Category 2 benign findings Recommendation: Routine annual screening mammography is recommended [address] [id number] Procedure Note Ascencion Lucero MD - 12/24/2023 [...] Recommendation: Routine annual screening mammography is recommended [address] [id number] Catrina Billings MD IMG XR PROCEDURES Final Result * Falls Risk Assessment (09/15/2023) Falls Risk Assessment abstracted Historical Provider HEALTH MAINTENANCE Final Result * DXA BONE DENSITY STUDY 1+ SITS AXIAL SKEL (03/26/2022 10:56 AM EST) Anatomical Region Laterality Modality Bone Densitometr y 02/14/2022 10:0 0 AM EST Narrative 03/26/2022 1:49 PM EST BONE DENSITY Lumbar Spine T-score is -0.6 (SD relative to 20-29 y/o adult) Z-score is +1.2 (SD relative to age matched peers) This is normal by criteria defined by the WHO. Left Hip T-score is -1.4 Z-score is +0.2 This is consistent with osteopenia by criteria defined by the WHO. Impression: Based on the World Health Organization criteria, Neva Lubin should be classified as having osteopenia. This patient has a 8.2% risk of major osteoporotic fracture and a 0.8% risk of hip fracture over the next 10 years. (World Health Organization Fracture Risk Assessment) The [facility] Department of Internal Medicine recommends using [...] Based on the World Health Organization criteria, Neva Lubin shouldbe classified as having osteopenia. This patient has a 8.2% risk of majorosteoporotic fracture and a 0.8% risk of hip fracture over the next 10years. (World Health Organization Fracture Risk Assessment) The [facility] Department of Internal Medicine recommendsusing National [...] Final Result * Hepatitis C Screening (04/18/2017) [facility] Hepatitis C Screening abstracted Historical Provider HEALTH MAINTENANCE Final Result from Last 3 Months or Most Recently Relevant to Health Maintenance Insurance MEDICARE [facility] Care Teams [employer] Relationship Specialty Start Date End Date Catrina Billings MD [address] [place] [id number] PCP - General Internal Medicine 10/15/21
== END 2024-09-03 11:49 | disposition home or self-care (01) ==
LOC: HO.HOS 09:59
PROVIDERS: PCP Internal Medicine; Visit Provider Physical Medicine & Rehabilitation
DX: G62.89 Other specified polyneuropathies (principal); M53.3 Sacrococcygeal disorders, not elsewhere classified; M47.816 Spondylosis without myelopathy or radiculopathy, lumbar region
CPT/HCPCS: 99213

== ENCOUNTER → 2024-09-03 09:58 | Outpatient (BNVA) | payer MEDICARE, OTHER, BC, SELFPAY | PROVIDERS: PCP Internal Medicine; Visit Provider Physical Medicine & Rehabilitation | DX: M53.3 Sacrococcygeal disorders, not elsewhere classified (principal); G62.9 Polyneuropathy, unspecified; M47.816 Spondylosis without myelopathy or radiculopathy, lumbar region | CPT/HCPCS: 99212 ==

== ENCOUNTER 2025-02-24 14:50 | Outpatient (AMB) | payer MEDICARE, OTHER, BC, SELFPAY ==
--- OUTSIDE RECORDS SUMMARY | 2025-02-22 11:30 | XMS_ITS | Encounter Summary ---
Author Organization [facility] Address [address] [place] [address] Care Team Providers Care Formula Checker Name Role Phone Catrina Billings MD Primary Care Prov ider Reason for Visit * Reason Comments Diabetes Encounter Details Date Type Department Care Team (Late st Contact Info) Description 02/22/2025 11:30 AM EST Office Visit Adult Medicine [facility] [address], [place] [phone] Luba Garrido PA [address] [place], [place] Medicare annual wellness visit, subsequent (Primary Dx); Type 2 diabetes mellitus without complication, without long-term current use of insulin ([facility]/HCC V24, [facility]/H[facility] V28); Primary hypertension; Mixed hyperlipidemia; Class 1 obesity due to excess calories with serious comorbidity and body mass index (BMI) of 33.0 to 33.9 in adult Social History Tobacco Use Types Packs/Day Years Used Date Smoking Tobacco: Former Cigarettes 27.7 0 07/01/1968 - 03/10/1996 Smokeless Tobacco: Never Tobacco Cessation:Counseling Given: Not Answered Alcohol Use Standard Drinks/Week Comments No 0 (1 standard drink = 0.6 oz pur e alcohol) Housing Instability Answer Date Recorde d Are you worried that in the next 2 months you may not have stable housing? No 02/22/2025 Food Access & Nutrition Answer Date Rec orded Do you have access to a vari ety of food including fruits and vegetables? Yes 02/22/2025 Access to Healthcare Answer Date Record ed Within the last 3 months, ho w many times did you visit the emergency department for your medical care? 0 02/22/2025 Health Literacy Answer Date Recorded How often do you need to hav e someone help you when you read instructions, pamphlets, or other written material from your doctor or pharmacy? Never 02/22/2025 Caregiver: How often do you need to have someone help you when you read instructions, pamphlets, or other written material from your doctor or pharmacy? Not on file 02/22/2025 Financial Risk Answer Date Recorded How hard is it for you to pa y for the very basics like food, housing, medical care, and air conditioning / heating? Patient declined 02/22/2025 Transportation Answer Date Recorded Has the lack of transportati on kept you from meetings, work, or from getting things needed for daily living? No Has the lack of transportati on kept you from medical appointments or from getting medications? No 02/22/2025 Social Isolation Answer Date Recorded How often do you feel lonely or isolated from th ose around you? Never 02/22/2025 Food Risk Answer Date Recorded Within the past 12 months we worried whether our food would run out before we got money to buy more. Never true 02/22/2025 Within the past 12 months th e food we bought just didn't last and we didn't have money to get more. Never true 02/22/2025 Dependent Care Answer Date Recorded Do you need help finding or paying for care for your loved ones. For example, attendant children's institution or elderly care for an older adult? No 02/22/2025 Education Answer Date Recorded Do you think completing more education or training, like finishing a GED, going to college, or learning a trade, would be helpful for you? No 02/22/2025 Employment and Income Answer Date Recor ded During the last four weeks, have you been actively looking for work? No 02/22/2025 Living Situation Answer Date Recorded What is your living situation? Unrecognized valu e 02/22/2025 Interpersonal Safety Answer Date Record ed Physical Abuse Unrecognized value 06/30/2024 Verbal Abuse Unrecognized value 06/30/2024 Comments No Sex and Gender Information Value Date Recorded Sex Assigned at Female 06/02/2024 10:19 AM EDT Legal Sex Female 7:39 AM EST Gender Identity Female 06/02/2024 10:19 AM EDT Sexual Orientation Straight 06/02/2024 10 :19 AM EDT documented as of this encounter Last Filed Vital Signs Vital Sign Reading Time Taken Comments Blood Pressure 129/70 02/22/2025 11:32 AM EST Pulse 80 02/22/2025 11:32 AM EST Temperature 36.6 C (97.8 F) 02/22/2025 11:32 AM EST Respiratory Rate 15 02/22/2025 11:32 AM EST Oxygen Saturation 97% 02/22/2025 11:32 AM EST Inhaled Oxygen Concentration - - Weight 77.7 kg (171 lb 6.4 oz) 02/22/2025 11:32 AM EST Height 152.4 cm (5') 02/22/2025 11:32 AM EST Body Mass Index 33.47 02/22/2025 11:32 AM EST documented in this encounter Patient Instructions * Attachments The following attachments cannot be sent through Care Everywhere. * Healthy Diet: Heart (Sl[place]) * Diabetes Diet Meal Planning: General Info (Slovak) documented in this encounter Ordered Prescriptions Prescription Sig Dispense Quantity Refills Last Filled Start Date End Date chlorthalidone (HYGROTON) 25 mg tablet Take 1 tablet (25 mg total) by mouth 1 (one) time each day. 90 tablet 02/22/2025 carvedilol (COREG) 12.5 mg tablet Take 1 tablet (12.5 mg total) by mouth 2 (two) times a day with meals. 180 tablet 02/22/2025 atorvastatin (LIPITOR) 20 mg tablet Take 1 tablet (20 mg total) by mouth 1 (one) time each day. 90 tablet 02/22/2025 documented in this encounter Progress Notes * PATIENCE Alfaro - 02/22/2025 11:30 AM ESTAssociated Problem(s): Hyperlipidemia See HTN plan above * PATIENCE Alfaro - 02/22/2025 11:30 AM ESTAssociated Problem(s): Obesity (BMI 30.0-34.9) She is morbidly obese. In today's appointment we spent 15 minutes specifically discussing her morbid obesity. Approaches towards weight loss are discussed, including prescription weight loss medications. * Idalia Pak MA - 02/22/2025 11:30 AM EST Depression Screening Will the patient answer the depression risk questions?: Yes Over the last 2 weeks, how often have you been bothered by little interest or pleasure in doing things?: Not at all Over the last 2 weeks, how often have you been bothered by feeling down, depressed, or hopeless?: Not at all Depression Risk: 0 Additional Depression Screening PHQ -9 Depression Risk Score: 0 Screening Result: Negative Risk Category: Negative Social Influencers of Health Who provided answers?: Self Within the past 12 months we worried whether our food would run out before we got money to buy more.: Never true Within the past 12 months the food we bought just didn't last and we didn't have money to get more.: Never true How hard is it for you to pay for the very basics like food, housing, medical care, and air conditioning / heating?: Patient declined Are you worried that in the next 2 months you may not have stable housing?: No Do you have access to a variety of food including fruits and vegetables?: Yes Within the last 3 months, how many times did you visit the emergency department for your medical care?: 0 Has the lack of transportation kept you from meetings, work, or from getting things needed for daily living?: No Has the lack of transportation kept you from medical appointments or from getting medications?: No How often do you feel lonely or isolated from those around you?: Never How often do you need to have someone help you when you read instructions, pamphlets, or other written material from your doctor or pharmacy?: Never * Socorro Simpson MA - 02/22/2025 11:30 AM EST Have you fallen in the past year? no. Are you worried about falling? no. . Mini Cog Score: 5 Result: Negative screen for dementia Social Influencers of Health Who provided answers?: Self Within the past 12 months we worried whether our food would run out before we got money to buy more.: Never true Within the past 12 months the food we bought just didn't last and we didn't have money to get more.: Never true How hard is it for you to pay for the very basics like food, housing, medical care, and air conditioning / heating?: Patient declined Are you worried that in the next 2 months you may not have stable housing?: No Do you have access to a variety of food including fruits and vegetables?: Yes Within the last 3 months, how many times did you visit the emergency department for your medical care?: 0 Has the lack of transportation kept you from meetings, work, or from getting things needed for daily living?: No Has the lack of transportation kept you from medical appointments or from getting medications?: No How often do you feel lonely or isolated from those around you?: Never How often do you need to have someone help you when you read instructions, pamphlets, or other written material from your doctor or pharmacy?: Never Depression Screening Will the patient answer the depression risk questions?: Yes Over the last 2 weeks, how often have you been bothered by little interest or pleasure in doing things?: Not at all Over the last 2 weeks, how often have you been bothered by feeling down, depressed, or hopeless?: Not at all Depression Risk: 0 Additional Depression Screening PHQ -9 Depression Risk Score: 0 Screening Result: Negative Risk Category: Negative * PATIENCE Alfaro - 02/22/2025 11:30 AM EST Images from the original note were not included. Medicare Annual Wellness Visit Note Patient Name: Billie Baeza Date of : 1955 Race: White Ethnicity: Not Hispan/Lat Date of Service: 02/22/2025 Patient Care Team: Catrina Billings MD as PCP - General (Internal Medicine) Gayle Burgos RD as Dietitian (Nutrition) Tuan Collins MD as Referring Physician (Ophthalmology) Billie is a 69 y.o. female presenting for Diabetes Billie presents today for reevaluation and management of diabetes, hypertension, hyperlipidemia, and obesity. Her medication regimen includes atorvastatin 20 mg, carvedilol 12.5 mg BID, chlorthalidone 25 mg, semaglutide 0.25 mg weekly and she reports compliance with medications. Most recent hemogl obin A1c's is well controlled with most recent value of 6.0%. Lab work is currently up to date. Billie is regularly checking blood sugars at home. Reports a high blood sugar of 150 and a low blood sugar of 118 over the past few months. Denies nausea, vomiting, fever, chills, chest pain, palpitations, shortness of breath, abdominal pain, diarrhea, constipation, polyuria, polydipsia, headaches, and changes in vision. She is up to date with eye services and sees Dr. Zhang. She is not exercising regularly. Her 24 hour diet recall is as shown as below: Breakfast: Rasin bread and orange juice Lunch: 1/2 ham sandwich and a salad Dinner: Frozen chicken parm Snacks: Cookies with tea, handful of candy Drinks: Diet Coke 1 glass, 1 glass of water, tea with milk and 1/2 tsp sugar, orange juice Problem List[1] Allergies[2] Current Outpatient Medications Medication Instructions acetaminophen (TYLENOL) 500 mg tablet Every 6 hours PRN atorvastatin (LIPITOR) 20 mg, oral, Daily carvedilol (COREG) 12.5 mg, oral, 2 times daily with meals chlorthalidone (HYGROTON) 25 mg, oral, Daily ESOMEPRAZOLE MAGNESIUM ORAL Take by mouth. GENERIC EXTERNAL MEDICATION Nifedipine 0.3% ointment Apply as a thin film TID to the perianal skin methIMAzole (TAPAZOLE) 2.5 mg, oral, Every other day semaglutide (OZEMPIC) 0.25 mg, subcutaneous, Every 7 days semaglutide (OZEMPIC) 0.5 mg, subcutaneous, Every 7 days Medical History[3] Surgical History[4] Social History[5] Family History[6] Immunization History Administered Date(s) Administered Influenza Quadravalent, MDCK, 0.5ml, with preservative (Flucelvax) 6mo and older 12/08/2019 Moderna SARS-CoV-2 COVID-19, mRNA, LNP-S, preservative free 06/24/2020, 07/22/2020, 02/10/2021 Td Tetanus diptheria (Tdvax) 7yo and older 07/23/2005 Tdap Tetanus diptheria acellular pertussis (Boostrix; Adacel) 7yo and older 05/26/2017 Zoster recombinant (Shingrix) 19yo and older 12/08/2019, 03/09/2020 Health Maintenance Topic Date Due Diabetes: Annual Retina Eye Exam Never done Pneumococcal Vaccine: 50+ Years (1 of 2 - PCV) Never done Influenza Vaccine (1) 09/06/2025 (Originally 11/08/2024) Diabetes: Blood Sugar Control Test (HGBA1C) 08/18/2025 Diabetes: Annual GFR (Glomerular Filtration Rate) 11/18/2025 Hypertension/CHF/CAD Annual BMP Blood Test 11/18/2025 Diabetes: Annual Urine Albumin-Creatinine Ratio (uACR) 02/18/2026 Diabetes: Annual Foot Exam 02/22/2026 Falls Risk Assessment 02/22/2026 Social Influencers of Health Screening 02/22/2026 Medicare Annual Wellness Visit 02/22/2026 Breast Cancer Screening 12/13/2026 Osteoporosis Screening (Bone Density Screening) 03/26/2027 DTaP,Tdap,and Td Vaccines (3 - Td or Tdap) 05/27/2027 Colorectal Cancer Screening: Colonoscopy 07/01/2027 Cholesterol Screening (Lipid Panel) 11/18/2029 RSV Immunization Adult Patients (1 - 1-dose 75+ series) 08/14/2031 Zoster Vaccines Completed Hepatitis C Screening Completed Depression Screening Completed HIB Vaccines Aged Out IPV Vaccines Aged Out MMR Vaccines Aged Out Varicella Vaccines Aged Out Meningococcal ACWY Vaccine Aged Out Meningococcal B Vaccine Aged Out HPV Vaccines Aged Out RSV Immunization Patients Under 20 months Aged Out Hepatitis B Vaccines Discontinued Hepatitis A Vaccines Discontinued COVID-19 Vaccine Discontinued Cognitive Function Assessment: No cognitive concerns, No screenings indicated. Mini COG Clock Drawing Test: Normal Word Recall: Three Words Mini Cog Score: 5 Mini Cog Results: Negative screen for dementia Fall Screening: Fallen in the past year?: No Feels unsteady when standing or walking?: No Worries about falling?: No Calculated fall risk level: low Depression Screening Will the patient answer the depression risk questions?: Yes Over the last 2 weeks, how often have you been bothered by little interest or pleasure in doing things?: Not at all Over the last 2 weeks, how often have you been bothered by feeling down, depressed, or hopeless?: Not at all Depression Risk: 0 PHQ9 Full Set of Questions Over the last 2 weeks, how often have you been bothered by little interest or pleasure in doing things?: Not at all Over the last 2 weeks, how often have you been bothered by feeling down, depressed, or hopeless?: Not at all PHQ -9 Depression Risk Score: 0 Screening Result: Negative Risk Category: Negative Activity of Daily Living (ADLs): Activity of Daily Living (ADLs) Are you able to independently move around your home, with or without an assistive device such as a walker or wheelchair?: No Do you need help from others grooming, bathing, or dressing?: No Do you need help from others with eating?: No Do you need help from others for toileting?: No Do you experience urinary incontinence?: Yes Do you experience fecal incontinence?: No Instrumental Activities of Daily Living (IADLs): Do you need help with using the telephone?: No Do you need help with shopping?: No Do you need help with food preparation?: No Do you need help with housekeeping?: No Do you need help with laundry?: No Do you need help handling finances?: No Do you drive?: Yes Do you manage your own medication?: Yes, independent Functional Ability and Level of Safety Review Health Status: Have you been hospitalized since we last saw you?: No If you use medical equipment (e.g.: CPAP Machine), do you have a preferred supplier?: No In general, the patient reports health as: good In general, patient reports life as: good Patient reports sleep pattern as: sleeping well Have you seen a dentist in the last year?: Yes Physical Activity: Do you exercise for about 20 minutes or more three days a week?: No Nutritional Assessment: Do you eat a balanced diet including daily serving of fruits, vegetables, and whole grains?: Yes, sometimes Safety: Safety: Does the patient live alone?: Yes Does your home have throw rugs, poor lighting, or a slippery bathtub/shower?: No Does your home have functioning smoke detection?: Yes Do you use any assistive devices?: No Do you always fasten your seatbelt?: Yes Psychosocial Risks: Has stress been negatively affecting your life?: No Has anger been negatively affecting your life?: No Have you been bothered by unusual fatigue?: No Social Influencers of Health Who provided answers?: Self Within the past 12 months we worried whether our food would run out before we got money to buy more.: Never true Within the past 12 months the food we bought just didn't last and we didn't have money to get more.: Never true How hard is it for you to pay for the very basics like food, housing, medical care, and air conditioning / heating?: Patient declined Are you worried that in the next 2 months you may not have stable housing?: No Do you have access to a variety of food including fruits and vegetables?: Yes Within the last 3 months, how many times did you visit the emergency department for your medical care?: 0 Has the lack of transportation kept you from meetings, work, or from getting things needed for daily living?: No Has the lack of transportation kept you from medical appointments or from getting medications?: No How often do you feel lonely or isolated from those around you?: Never How often do you need to have someone help you when you read instructions, pamphlets, or other written material from your doctor or pharmacy?: Never Review of Systems Constitutional: Negative for appetite change, chills, fatigue and fever. HENT: Negative for tinnitus. Respiratory: Negative for cough, choking, chest tightness, shortness of breath and wheezing. Cardiovascular: Negative for chest pain, palpitations and leg swelling. Gastrointestinal: Positive for nausea. Negative for abdominal pain, constipation, diarrhea and vomiting. Endocrine: Negative for cold intolerance, heat intolerance, polydipsia, polyphagia and polyuria. Skin: Negative for color change, pallor, rash and wound. Neurological: Negative for dizziness, weakness and light-headedness. Objective BP 129/70 Pulse 80 Temp 36.6 ??C (97.8 ??F) (Temporal) Resp 15 Ht 1.524 m (60 ) Wt 77.7 kg (171 lb 6.4 oz) BMI 33.47 kg/m?? SpO2: 97 % Hearing: No data recorded Vision Screening: Required for Medicare Initial Preventative Physical Exam (IPPE) No data recorded Physical Exam Vitals and nursing note reviewed. Constitutional: General: She is not in acute distress. Appearance: Normal appearance. She is obese. She is not toxic-appearing. Neck: Vascular: No carotid bruit. Cardiovascular: Rate and Rhythm: Normal rate and regular rhythm. Heart sounds: Normal heart sounds. No murmur heard. No friction rub. No gallop. Pulmonary: Effort: Pulmonary effort is normal. No respiratory distress. Breath sounds: Normal breath sounds. No wheezing, rhonchi or rales. Abdominal: General: Abdomen is flat. Bowel sounds are normal. Palpations: Abdomen is soft. Tenderness: There is no abdominal tenderness. Feet: Comments: Sensory exam of the foot is normal , tested with the monofilament. 2+ dorsalis pedis pulses, no lesions or ulcers. Neurological: Mental Status: She is alert. LABS: Lab Results Component Value Date HGBA1C 6.0 02/17/2025 CHOL 164 11/18/2024 LDLCALC 85 11/18/2024 HDL 44 11/18/2024 TRIG 174 (H) 11/18/2024 CREATUR 153.0 02/18/2025 MICROALBUR <3.0 02/18/2025 MICROALBCREA <2 02/18/2025 Lab Results Component Value Date GLUCOSE 116 (H) 11/18/2024 Patient presented today for an Subsequent Medicare Wellness Visit with management of chronic condition(s). Assessment & Plan Medicare annual wellness visit, subsequent Addressed AWV Type 2 diabetes mellitus without complication, without long-term current use of insulin ([facility] V24, [facility] V28) Patient's diabetes is well controlled with A1C as shown above. LDL cholesterol is well controlled with goal of less than 100 with better goal of less than 70. Current regimen includes atorvastatin 20mg, carvedilol 12.5 mg BID, chlorthalidone 25 mg, semaglutide 0.25 mg weekly and semaglutide has been increased to 0.5 mg weekly today. DM foot exam is completed today and eye exam is up to date. Billie has been encouraged to follow a diet low in saturated fat as well as low in carbohydrates. They have been encouraged to try to get 30 minutes of exercise 4 to 5 days a week to their tolerance. Patient is educated to call the office if she develops polyuria, polydipsia, numbness of the feet, orif her fasting blood sugar is >200 for 3 consecutive days, as she should be seen sooner than routine follow-up in office. She is educated to report to the ED if her blood sugar is <70 without improvement 30 minutes after consuming something high in sugar, if it is >300 with symptoms, or ifshe develops shortness of breath or chest pain. If sugar <70 fasting patient should hold semaglutide if due on that day. Patient will require a 4 month follow up in office with primary care provider for re-evaluation and management of diabetes. Patient's questions today answered to the best of my ability. Patient understands and agrees to this plan and acknowledges to contact me with any additional questions or concerns.nexium Orders: Diabetes Foot Exam Primary hypertension Patient's hypertension is well controlled with blood pressure as shown above. LDL cholesterol is well controlled with goal of less than 160 and goal of 100 if on cholesterol lowering medication. Current regimen includes atorvastatin 20 mg, carvedilol 12.5 mg BID, chlorthalidone 25 mg and no changeshave been made. Billie has been encouraged to follow a diet low in saturated fat, low in carbohydrates, and low in sodium. She has been encouraged to try to get 30 minutes of exercise 4 to 5 days aweek to their tolerance. Patient is educated to call the office if she develops headaches, nosebleeds, chest pain, palpitations, changes in vision or if her blood pressure is greater than 140/90 for 3 consecutive days, as she should be seen sooner than routine follow-up in office. She is educated to report to the ED if her blood pressure is greater than 140/90 and there are associated symptoms ofchest pain, shortness of breath, palpations, or abrupt changes in vision. If blood pressure is <100/60 patient should hold carvedilol and chlorthalidone. Patient will require a 4 month follow up in office with primary care provider for re-evaluation and management of hypertension. Patient's questions today answered to the best of my ability. Patient understands and agrees to this plan and acknowledges to contact me with any additional questions or concerns. Mixed hyperlipidemia See HTN plan above Class 1 obesity due to excess calories with serious comorbidity and body mass index (BMI) of 33.0 to 33.9 in adult She is morbidly obese. In today's appointment we spent 15 minutes specifically discussing her morbid obesity. Approaches towards weight loss are discussed, including prescription weight loss medications. Myself and my colleagues maintained a long-term, longitudinal relationship with this patient, overseeing care of chronic conditions including diabetes, hypertension, hyperlipidemia, and obesity. Thiscare relationship has significantly influence my decision making and treatment plans during today's encounter. Risk Assessments: Body mass index is 33.47 kg/m??. The BMI is above average. The patient received dietary education, feeding regime, and exercise education because they have an above normal BMI. Fall Risk: Have you fallen in the past year? no. Are you worried about falling? no. Discussed: no fall risk fall education provided. PHQ -9 Depression Risk Score: 0 Depression plan: Screen was negative Pain Medication: Patient does not take any opioid medications Advance Care Planning Advance care planning is the process of planning for future medical care in case you are unable to make your own medical decisions. It involves choosing a health care leather goods sales representative and reviewing future health care directives. The patient Advance Directives: does not have advance directives or surrogate decision maker.. Advance directives reviewed and/or discussed: Patient is not interested in discussing advance care planning or health care agent at this time. Health Maintenance Due Topic Date Due Diabetes: Annual Retina Eye Exam Never done Pneumococcal Vaccine: 50+ Years (1 of 2 - PCV) Never done The following vaccine(s) were recommended: Vaccines Recommended: Pneumococcal (Pneumonia) vaccine Patient Instructions (the written plan) as discussed and documented in our visit today. Luba Garrido [facility] [address] [address] Dept: [phone] Dept [1] Patient Active Problem List Diagnosis Abdominal pain, epigastric Breast fibroadenoma Carpal tunnel syndrome External hemorrhoid Hyperlipidemia Hyperthyroidism without crisis Migraines Obesity (BMI 30.0-34.9) Ocular migraine Osteopenia Prediabetes Primary osteoarthritis of left knee Secondary hypertension Fatty liver [2] Allergies Allergen Reactions Cefuroxime Diarrhea and Nausea And Vomiting Codeine Nausea And Vomiting dizziness [3] Past Medical History: Diagnosis Date Benign neoplasm of breast 06/18/2005 DX:Benign neoplasm of breast Benign neoplasm of colon 04/15/2012 DX:Benign neoplasm of colon Carpal tunnel syndrome 03/30/2008 DX:Carpal tunnel syndrome; COMMENT: Bilateral, left release GERD (gastroesophageal reflux disease) Hemorrhoids DX:Hemorrhoids Historical Medical DX 03/30/2008 DX:Ocular migraine Hyperlipidemia Hypertension [4] Past Surgical History: Procedure Laterality Date BREAST BIOPSY Left 1998 PROCEDURE: BX BREAST; PERC NEEDLE CORE W/IMAG GUID; COMMENT: lt breast exc bx BREAST BIOPSY Left 2018 PROCEDURE: IL BX BREAST W/DEVICE 1ST LESION ULTRASOUND GUID BREAST SURGERY Left 1998 PROCEDURE: IL UNLISTED PROCEDURE BREAST CARPAL TUNNEL RELEASE PROCEDURE: HISTORICAL CARPAL TUNNEL REL; COMMENT: left COLONOSCOPY 04/15/2012 PROCEDURE: HISTORICAL COLONOSCOPY; COMMENT: 7 mm right colon polyp: Tubular adenoma. Next colonoscopy in 5 years. COLONOSCOPY 08/07/2017 PROCEDURE: HISTORICAL COLONOSCOPY; COMMENT: 13 mm cecal polyp: Tubular adenoma. HYSTERECTOMY 1979 PROCEDURE: HISTORICAL HYSTERECTOMY; COMMENT: precancerous lesion, ovaries left OTHER SURGICAL HISTORY 05/2009 PROCEDURE: MAMMOGRAM UPPER GASTROINTESTINAL ENDOSCOPY 10/03/2005 PROCEDURE: IL UPPER GI ENDOSCOPY PERFORMED; COMMENT: Normal with normal duodenal biopsies. [5] Social History Tobacco Use Smoking status: Former Current packs/day: 0.00 Types: Cigarettes Start date: 07/01/1968 Quit date: 03/10/1996 Years since quittin.9 Smokeless tobacco: Never Substance Use Topics Alcohol use: No Drug use: No [6] Family History Problem Relation Name Age of Onset Coronary artery disease Mother CABG Kidney cancer Father Diabetes Maternal Grandmother Coronary artery disease Maternal Grandfather Diabetes Paternal Grandmother CAD Breast cancer Aunt pat 50s paternal Breast cancer Aunt pat 50s Colon cancer Aunt pat 50s Lung cancer Aunt mat ?age Breast cancer Aunt mat ?age Ovarian cancer Aunt Breast cancer Other pat cousin 40s documented in this encounter Plan of Treatment Upcoming Encounters Date Type Department Care Team (Late st Contact Info) Description 06/27/2025 11:30 AM EDT Office Visit Adult Medicine [address] [phone] Catrina Billings MD [address] [place] [address] 02/23/2026 12:00 PM EST Office Visit Adult Medicine [address] [phone] Catrina Billings MD [address] [place] [address] documented as of this encounter Visit Diagnoses Diagnosis Medicare annual wellness visit, subsequent- Primary Type 2 diabetes mellitus without complication, without long-term current use of insulin ([facility] V24, [facility] V28) Primary hypertension Unspecified essential hypertension Mixed hyperlipidemia Class 1 obesity due to excess calories with serious comorbidity and body mass index (BMI) of 33.0 to 33.9 in adult documented in this encounter Discontinued Medications Medication Sig Discontinue Reason Start Date End Da te ibuprofen (ADVIL,MOTRIN) 600 mg tablet TAKE 1 TABLET BY MOUTH 3 TIMES A DAY NEEDED Therapy completed 03/06/2023 02/22/2025 atorvastatin (LIPITOR) 20 mg tablet Take 1 tablet (20 mg total) by mouth 1 (one) time each day. Reorder 09/16/2024 02/22/2025 chlorthalidone (HYGROTON) 25 mg tablet TAKE 1 TABLET BY MOUTH EVERY DAY Reorder 10/11/2024 02/22/2025 carvediloL (COREG) 12.5 mg tablet TAKE 1 TABLET BY MOUTH TWICE A DAY WITH FOOD Reorder 12/08/2024 02/22/2025 carboxymethylcellulose 1 % ophthalmic solution 1 drop 3 (three) times a day. Therapy completed 02/22/2025 documented as of this encounter Historical Medications * This list may reflect changes made after this encounter. acetaminophen (TYLENOL) 500 mg tablet Take by mouth every 6 (six) hours if needed for mild pain. added in this encounter Orders Health Maintenance Count Last Ordered Date Firs t Ordered Date HM DIABETES FOOT EXAM 1 02/22/2025 documented in this encounter Additional Health Concerns Assessment Noted Time PHQ-9 Depression Total Score: 0 02/23/20 11:34 AM EST A fall risk assessment has been complete d for the patient 02/22/2025 11:45 AM EST documented as of this encounter Care Teams Formula Checker Relationship Specialty Start Date End Date Catrina Billings MD [address] [place] [address] PCP - General Internal Medicine 10/15/21 documented as of this encounter
--- NOTE | 2025-02-24 15:01 | A.OFFVIS_ITS ---
Vital Signs 02/24/25 15:13 Height 5 ft Weight 175 lb BMI 34.2 Intake Visit Reasons: Inj-right shoulder pain-interested in cortisone Intake Note: Billie 69 yr old female presents today for her right shoulder pain. Patient would like to discuss cortisone. Patient denies any injury or trauma to the right shoulder. She reports that the pain has been ongoing for the past 1-2 months. Allergies cefuroxime Allergy (Verified 09/03/24 10:08) Nausea codeine (CODEINE) Adverse Reaction (Intermediate, Verified 09/03/24 10:08) NAUSAEA HPI Comments Details: History of Present Illness The patient is a 69-year-old right-hand dominant female presenting with right shoulder pain. The pain started in December or January and has improved over time; it was initially constant and severe but has now subsided to an ache. She does not recall a specific injury. The patient reports that the pain is worse at night, particularly when she sleeps on her right side, causing her to wake up. She also notes pain and difficulty when trying to push off from a chair. The patient has a history of bursitis and tendinitis in the same shoulder years ago while working at the [employer], which she states was worse than her current symptoms. She received a steroid injection at that time, which provided relief. Pain Description - Location: The pain is in the right shoulder and feels as though it is going across the outer aspect of the shoulder. - Onset: The symptoms began in December or January. - Character: The pain is currently described as an ache, though it was initially severe and constant. - Exacerbating Factors: The pain is worse at night, when sleeping on the affected side, and when pushing off from a chair. Results [facility] Medical History Hyperthyroidism Hypertension Surgical History H/O hemorrhoidectomy (~03/06/23) History of lumpectomy History of hysterectomy Social History Patient Tobacco Use Status: Former Tobacco user Current occupational status: retired Current occupation: rt handed Review of Systems Narrative Review of Systems - Musculoskeletal: Reports right shoulder pain described as an ache. - Reports pain is worse at night when sleeping on the affected side. - Reports inability to push off from a chair due to pain. Physical Exam Exam Exam: Vital Signs: BMI result Body Mass Index 34.2 Const General: cooperative, healthy appearing and no acute distress Resp Effort & Inspection: normal respiratory effort and able to speak in complete sentences Extrem Other: Right shoulder FF and abd to end range. Able to reach T12. ER to end range. Negative cross body reach. 4/5 strength with empty can. Negative drop arm. NVI. Psych Appearance: grossly normal Mental Status: mental status grossly normal Attitude: cooperative Office Procedures AMB Joint Injection/Aspiration Joint Injection/Aspiration Primary Site: Right Shoulder Prep: site was prepped using aseptic technique, ethochloride spray was applied and injection warnings given Injected: 40 mg of, Decadron, with 3 mL of, 1% plain Lidocaine, 0.25% Bupiv acaine and in the subcromial space Approach Used: posterolateral Procedure: The patient tolerated the procedure well, but had some pain with the injection and there was some relief with the local anesthesia Coding - Large joint Procedure code (CPT) selection complete Assessment & Plan Assessment & Plan (1) Painful arc syndrome of right shoulder: Code(s): M75.101 - Unspecified rotator cuff tear or rupture of right shoulder, not specified as traumatic Category: Medical Plan 1. Right Shoulder Pain The patient's presentation with nocturnal exacerbation of pain over the lateral shoulder is consistent with rotator cuff tendinitis or subacromial bursitis. An X-ray of the right shoulder will be obtained to rule out any underlying osseous pathology. Based on her positive response to a previous injection for a similar condition, the plan is to proceed with a corticosteroid injection into the right shoulder after reviewing the X-ray results. Consent: Patient was informed and verbally consented to the use of an ambient scribe for clinic note documentation during this visit. Orders: Orders XR shoulder RT min 2V Today M25.519 - Pain in unspecified shoulder Coding Level of Care Code Est Pt Level 3 (17101) Add On Problem Visit Only Diagnoses Painful arc syndrome of right shoulder M75.101 CPT Codes Coding - 50607 Large joint: 47188 - Large joint ([id number])
[2025-02-24 15:13] VITALS: BMI 34.2
--- OUTSIDE RECORDS SUMMARY | 2025-02-24 18:56 | XMS_ITS | Encounter Summary ---
Author Organization [facility] Address [address] [place] [address] Care Team Providers Care Mold Machine Operator Name Role Phone Catrina Billings MD Primary Care Prov ider Encounter Details Date Type Department Care Team (Late st Contact Info) Description 02/18/2025 Results Follow-Up Adult Medicine [address] [phone] Catrina Billings MD [address] [place] [address] Social History Tobacco Use Types Packs/Day Years [...] care for your loved ones. For example, director child or elderly care for an older adult? [...] AM EDT documented as of this encounter Plan of Treatment Upcoming Encounters Date Type Department Care Team (Late st Contact Info) Description 06/27/2025 11:30 AM EDT Office Visit Adult Medicine [address] [phone] Catrina Billings MD [address] [place] [address] 02/23/2026 12:00 PM EST Office Visit [address] [phone] Catrina Billings MD [address] [place] [address] documented as of this encounter Visit Diagnoses Not on filedocumented in this encounter Additional Health Concerns Assessment Noted Time PHQ-9 Depression Total Score: 0 03/22/19 25 12:14 AM EST documented as of this encounter Care Teams Mold Machine Operator Relationship Specialty Start Date End Date Catrina Billings MD [address] [place] [address] PCP - General Internal Medicine 10/15/21 documented as of this encounter
--- OUTSIDE RECORDS SUMMARY | 2025-02-24 18:56 | XMS_ITS ---
Author Name [facility] Organization Unknown Care Team Organization Name Specialty Phone Email Start Date End Da te [facility] ACO 10/27/2024 [facility] Luba Garrido Primary Care 08/16/20222023 [facility] Adwoa Sin Primary Care 03/18/20222023
--- OUTSIDE RECORDS SUMMARY | 2025-02-24 18:56 | XMS_ITS | Encounter Summary ---
Author Organization [facility] Address [address] [place] [address] Care Team Providers Care Jewelry Mold Maker Name Role Phone Catrina Billings MD Primary Care Prov ider Encounter Details Date Type Department Care Team (Late st Contact Info) Description 02/22/2025 Telephone Adult Medicine [facility] [address] [place], [place] [phone] Luba Garrido PA [address] [place], [place] Social History Tobacco Use Types Packs/Day Years [...] for your loved ones. For example, child and family therapist or elderly care for an older adult? [...] AM EDT documented as of this encounter Progress Notes * Heidi Helm MA - 02/24/2025 8:39 AM EST Eye exam received and scanned into the chart * Socorro Simpson MA - 02/23/2025 10:56 AM EST Fax request sent * PATIENCE Alfaro - 02/22/2025 1:20 PM EST Please get a copy of eye exam from Dr. Collins documented in this encounter Plan of Treatment Upcoming Encounters Date Type Department Care Team (Late st Contact Info) Description 06/27/2025 11:30 AM EDT Office Visit Adult Medicine [address] [phone] Catrina Billings MD [address] [place] [address] 02/23/2026 12:00 PM EST Office Visit [address] [phone] Catrina Billings MD [address] [place] [address] documented as of this encounter Visit Diagnoses Not on filedocumented in this encounter Additional Health Concerns Assessment Noted Time PHQ-9 Depression Total Score: 0 02/23/20 25 11:34 AM EST A fall risk assessment has been complete d for the patient 02/22/2025 11:45 AM EST documented as of this encounter Care Teams Jewelry Mold Maker Relationship Specialty Start Date End Date Catrina Billings MD [address] [place] [address] PCP - General Internal Medicine 10/15/21 documented as of this encounter
--- OUTSIDE RECORDS SUMMARY | 2025-02-24 18:56 | XMS_ITS | Clinical Summary ---
Author Organization [address] Address [address] [place] [phone] Phone Care Team Providers Care Hydrate Control Tender Name Role Phone Catrina Billings MD Primary Care Prov ider Allergies Active Allergy Reactions Criticality Noted Date Comments Cefuroxime Diarrhea,Nausea And Vomiting 023 Codeine Nausea And Vomiting 08/11/2009 dizziness Medications ESOMEPRAZOLE MAGNESIUM ORAL Take by mouth. Active GENERIC EXTERNAL MEDICATION Nifedipine 0.3% ointment Apply as a thin film TID to the perianal skin 4 Active methIMAzole (TAPAZOLE) 5 mg tabletIndicatio ns:Thyrotoxicos is, unspecified without thyrotoxic crisis or storm Take 0.5 tablets (2.5 mg total) by mouth every other day. 45 tablet 1 5 Active semaglutide (OZEMPIC) 0.25 mg or 0.5 mg (2 mg/3 mL) injection penIndications: Type 2 diabetes mellitus without complication, without long-term current use of insulin ([facility] V24, [facility] V28) Inject 0.25 mg under the skin every 7 (seven) days. 2 mL 1 5 Active semaglutide (OZEMPIC) 0.25 mg or 0.5 mg (2 mg/3 mL) injection penIndications: Type 2 diabetes mellitus without complication, without long-term current use of insulin (CMS/[facility] V24, CMS/[facility] V28) Inject 0.5 mg under the skin every 7 (seven) days. 3 mL 2 5 Active acetaminophen (TYLENOL) 500 mg tablet Take by mouth every 6 (six) hours if needed for mild pain. Active atorvastatin (LIPITOR) 20 mg tablet Take 1 tablet (20 mg total) by mouth 1 (one) time each day. 90 tablet 5 Active carvedilol (COREG) 12.5 mg tablet Take 1 tablet (12.5 mg total) by mouth 2 (two) times a day with meals. 180 tablet 5 Active chlorthalidone (HYGROTON) 25 mg tablet Take 1 tablet (25 mg total) by mouth 1 (one) time each day. 90 tablet 5 Active ibuprofen (ADVIL,MOTRIN) 600 mg tablet TAKE 1 TABLET BY MOUTH 3 TIMES A DAY NEEDED 3 02/23/20 25 Discontin ued(Thera py completed ) carboxymethylce llulose 1 % ophthalmic solution 1 drop 3 (three) times a day. 02/23/20 25 Discontin ued(Thera py completed ) atorvastatin (LIPITOR) 20 mg tablet Take 1 tablet (20 mg total) by mouth 1 (one) time each day. 90 tablet 1 5 02/23/20 25 Discontin ued(Reord er) chlorthalidone (HYGROTON) 25 mg tablet TAKE 1 TABLET BY MOUTH EVERY DAY 90 tablet 1 5 02/23/20 25 Discontin ued(Reord er) carvediloL (COREG) 12.5 mg tablet TAKE 1 TABLET BY MOUTH TWICE A DAY WITH FOOD 180 tablet 5 02/23/20 25 Discontin ued(Reord er) Active Problems Problem Noted Date Diagnosed Date Fatty liver 03/26/2024 Obesity (BMI 30.0-34.9) 03/18/2023 Assessment & Plan (02/22/2025 12:06 PM EST): She is morbidly obese. In today's appointment we spent 15 minutes specifically discussing her morbid obesity. Approaches towards weight loss are discussed, including prescription weight loss medications. Assessment & Plan (11/22/2024 12:33 PM EDT): BMI 34.6. We discussed about low carb, high protein diet, regular exercise. Will start Ozempic for DM, expected to help with weight management. External hemorrhoid 01/20/2023 Osteopenia 03/26/2022 Overview (02/16/2024): [...] on the World Health Organization criteria, Neva Baeza should be classified as having osteopenia. This patient has a 8.2% risk of major osteoporotic fracture and a 0.8% risk of hip fracture over the next 10 years. (World Health Organization Fracture Risk Assessment) [facility] Department of Internal Medicine recommends using [...] A1c; Future Hyperlipidemia 12/27/2021 Assessment & Plan (02/22/2025 12:06 PM EST): See HTN plan above Assessment & Plan (11/22/2024 12:33 PM EDT): Currently on atorvastatin 20 mg daily. Will continue same regimen. Assessment & Plan (05/20/2024 12:34 PM EDT): Orders: Comprehensive metabolic panel; Future Lipid panel with reflex to direct LDL; Future Thyroid stimulating hormone; Future Secondary hypertension 07/15/2019 Assessment & Plan (11/22/2024 12:33 PM EDT): Well-controlled, today 128/62. Patient currently on carvedilol, chlorthalidone. Will continue same regimen. Encouraged to follow a low-salt diet and exercise regularly. Primary osteoarthritis of left knee 12/04/2018 Migraines 05/26/2017 Hyperthyroidism without crisis 01/03/2015 Assessment & Plan (11/22/2024 12:33 PM EDT): Patient follows regularly with Endo. Currently on methimazole 0.5 tablets every other day. No symptoms at of exacerbation. Continue same medication. Encouraged to keep the appointments with the specialist. Assessment & Plan (05/20/2024 12:34 PM EDT): Orders: Comprehensive metabolic panel; Future Lipid panel with reflex to direct LDL; Future Thyroid stimulating hormone; Future Carpal tunnel syndrome 03/30/2008 Overview (02/16/2024): Bilateral, left release Ocular migraine 03/30/2008 Abdominal pain, epigastric 10/03/2005 Overview (02/16/2024): negative upper GI endoscopy 7.27.06. duodenal biopsies normal. Assessment & Plan (05/20/2024 12:34 PM EDT): Breast fibroadenoma 06/18/2005 Encounters Date Type Department Care Team Description 02/22/2025 11:30 AM EST Office Visit Adult [address] [phone] Luba Garrido PA Medicare annual wellness visit, subsequent (Primary Dx); Type 2 diabetes mellitus without complication, without long-term current use of insulin (CMS/HCC V24, CMS/HCC V28); Primary hypertension; Mixed hyperlipidemia; Class 1 obesity due to excess calories with serious comorbidity and body mass index (BMI) of 33.0 to 33.9 in adult 02/22/2025 Telephone Adult [address] [phone] Luba Garrido PA 02/18/2025 3:00 PM EST Lab Draw Station [address] Type 2 diabetes mellitus without complication, without long-term current use of insulin (CMS/HCC V24, CMS/HCC V28) 02/18/2025 Results Follow-Up [address] [phone] Catrina Zaragoza MD 02/18/2025 Results Follow-Up [address] [phone] Catrina Zaragoza MD 02/17/2025 11:35 AM EST Lab Draw Station - [address] Type 2 diabetes mellitus without complication, without long-term current use of insulin (CMS/HCC V24, CMS/HCC V28) 01/19/2025 2:30 PM EST Nutrition Internal Medicine - [address] [place] [phone] [address] Type 2 diabetes mellitus without complication, without long-term current use of insulin (CMS/HCC V24, CMS/HCC V28) (Primary Dx) 12/17/2024 Results Follow-Up Adult [facility] - [address] [phone] Catrina Zaragoza MD 12/14/2024 Results Follow-Up Endocrinology - [address] [phone] Mariana Wilkinson MD 12/13/2024 2:00 PM EDT - 12/13/2024 11:59 PM EDT Hospital Encounter Radiology Department - [address] [phone] Thyroid nodule Discharge Disposition: Home or Self Care 12/13/2024 1:59 PM EDT - 12/13/2024 11:59 PM EDT Hospital Encounter Radiology Department - [address] [phone] Abnormal mammogram Discharge Disposition: Home or Self Care 12/13/2024 1:59 PM EDT - 12/13/2024 11:59 PM EDT Hospital Encounter Radiology Department - [address] [phone] Abnormal mammogram Discharge Disposition: Home or Self Care from Last 3 Months Immunizations Immunization Administration Dates Next Due Influenza Quadravalent, MDCK , 0.5ml, with preservative (Flucelvax) 6mo and older 12/08/2019 Moderna SARS-CoV-2 COVID-19, mRNA, LNP-S, preservative free 02/10/2021,07/22/2020,06/24/2020 Td Tetanus diptheria (Tdvax) 7yo and older 07/23 Tdap Tetanus diptheria acell ular pertussis (Boostrix; Adacel) 7yo and older 05/26/2017 Zoster recombinant (Shingrix ) 19yo and older 03/09/2020,12/08/2019 Surgical History Surgery Date Site/Laterality Comments HYSTERECTOMY 1980 PROCEDURE: HISTORICAL HYSTERECTOMY; COMMENT: precancerous lesion, ovaries left OTHER SURGICAL HISTORY 05/2009 PROCEDURE: MAMMOGRAM CARPAL TUNNEL RELEASE PROCEDURE: HISTORICAL CARPAL TUNNEL REL; COMMENT: left COLONOSCOPY 04/15/2012 PROCEDURE: HISTORICAL COLONOSCOPY; COMMENT: 7 mm right colon polyp: Tubular adenoma. Next colonoscopy in 5 years. UPPER GASTROINTESTINAL ENDOSCOPY 10/03/2005 PROCEDURE: OK UPPER GI ENDOSCOPY PERFORMED; COMMENT: Normal with normal duodenal biopsies. COLONOSCOPY 08/07/2017 PROCEDURE: HISTORICAL COLONOSCOPY; COMMENT: 13 mm cecal polyp: Tubular adenoma. BREAST SURGERY 1998 Left PROCEDURE: OK UNLISTED PROCEDURE BREAST BREAST BIOPSY 1998 Left PROCEDURE: BX BREAST; PERC NEEDLE CORE W/IMAG GUID; COMMENT: lt breast exc bx BREAST BIOPSY 2017 Left PROCEDURE: OK BX BREAST W/DEVICE 1ST LESION ULTRASOUND GUID [...] your loved ones. For example, child care leader or elderly care for an older adult? [...] 06/02/2024 10 :19 AM EDT Obstetrics History Para Term AB IAB SAB Ectopic Multiple Livin g Live Births 1 1 1 1 Date Outcome GA Total Labor Labor/2nd/3rd Weight Sex Type Anes PTL Theodora A1 A5 Name Clin Term Last Filed Vital Signs Vital Sign Reading [...] Mass Index 33.47 02/22/2025 11:32 AM EST Plan of Treatment Upcoming Encounters Date Type Department Care Team (Late st Contact Info) Description 06/27/2025 11:30 AM EDT Office Visit Adult Medicine [address] [phone] Catrina Billings MD [address] [place] [address] 02/23/2026 12:00 PM EST Office Visit Adult Medicine [address] [phone] Catrina Billings MD [address] [place] [address] Health Maintenance Due Date Last Done Comments Pneumococcal Vaccine: 50+ Years (1 of 2 - PCV) 08/14/1975 Diabetes: Annual Retina Eye Exam 05/11/2025 05/11/2024 Diabetes: Blood Sugar Control Test (HGBA1C) 08/18/2025 02/17/2025, 11/18/2024, 03/17/2024, Additional history exists Influenza Vaccine (#1) 2025 12/08/2019 Postp oned from 11/08/2024 (Patient Refused) Diabetes: Annual GFR (Glomerular Filtration Rate) 11/18/2025 11/18/2024, 03/17/2024, 12/23/2023, Additional history exists Hypertension/CHF/CAD Annual BMP Blood Test 11/18/2025 11/18/2024, 03/17/2024, 12/23/2023, Additional history exists Diabetes: Annual Urine Albumin-Creatinine Ratio (uACR) 02/18/2026 02/18/2025 Diabetes: Annual Foot Exam 02/22/2026 02/22/2025 Falls Risk Assessment 02/22/2026 02/22/2025 , 06/30/2024, 09/15/2023 Medicare Annual Wellness Visit 02/22/2026 02/22/2025 Social Influencers of Health Screening 02/22/2026 02/22/2025 Breast Cancer Screening 12/13/2026 12/14/19 25, 11/18/2024, 11/17/2023, Additional history exists Osteoporosis Screening (Bone Density Screening) 03/26/2027 03/26/2022 DTaP,Tdap,and Td Vaccines (3 - Td or Tdap) 05/27/2027 05/26/2017, 07/23/2005 Colorectal Cancer Screening: Colonoscopy 07/01/2027 06/30/2024, 08/07/2017 Cholesterol Screening (Lipid Panel) 11/18/2029 11/18/2024, 03/17/2024, 08/08/2022 RSV Immunization Adult Patients (1 - 1-dose 75+ series) 08/14/2031 Hepatitis C Screening Completed 04/18/2017 Zoster Vaccines Completed 03/09/2020, 12/08/2019 COVID-19 Vaccine Discontinued 02/10/2021, , 06/24/2020 Depression Screening Completed 02/22/2025, 11/20/19 24 HIB Vaccines Aged Out No longer eligi ble based on patient's age to complete this topic HPV Vaccines Aged Out No longer eligi ble based on patient's age to complete this topic Hepatitis A Vaccines Discontinued Hepatitis B Vaccines Discontinued IPV Vaccines Aged Out No longer eligi [...] Procedure Name Priority Date/Time Associated Diagnosis Comments MICROALBUMIN CREATININE URINE RATIO Routine 02/18/2025 2:57 PM EST Type 2 diabetes mellitus without complication, without long-term current use of insulin ([facility] V24, [facility] V28) HEMOGLOBIN A1C Routine 02/17/2025 11:38 AM EST Type 2 diabetes mellitus without complication, without long-term current use of insulin ([facility] V24, CMS/[facility] V28) US HEAD NECK SOFT TISSUE Routine 12/13/2024 3:01 PM EDT Thyroid nodule US BREAST LIMITED LEFT Routine 2:53 PM EDT Abnormal mammogram MG MAMMO DIGITAL DIAGNOSTIC W [place] LEFT Routine 12/13/2024 2:32 PM EDT Abnormal mammogram COMPREHENSIVE METABOLIC PANEL Routine 11/18/2024 1:19 PM EDT Mixed hyperlipidemia Hyperthyroidism without crisis Prediabetes LIPID PANEL WITH REFLEX TO DIRECT LDL Routine 11/18/2024 1:19 PM EDT Mixed hyperlipidemia Hyperthyroidism without crisis Prediabetes COLONOSCOPY Routine 06/30/2024 11:59 AM EDT History of adenomatous polyp of colon EXTERNAL DIABETIC RETINA EYE EXAM Routine 05/11/2024 8:38 AM EST HM DEPRESSION SCREENING Routine 11/20/2023 HM FALLS RISK ASSESSMENT Routine 09/15/2023 DXA BONE DENSITY STUDY 1+ SITS AXIAL SKEL Routine 03/26/2022 10:56 AM EST Asymptomatic menopausal state HEPATITIS C SCREENING Routine 04/18/2017 from Last 3 Months or Most Recently Relevant to Health Maintenance Results * Microalbumin creatinine urine ratio (02/18/2025 2:57 PM EST) Creatinine, Urine 153.0 mg/dL 02/18/2025 6:06 PM EST [facility] Microalb, Ur <3.0 0.0 - 29.0 mg/L 02/18/2025 6:06 PM EST [facility] Microalb/Creat Ratio <2 <30 mg/g creat 02/18/2025 6:06 PM EST [facility] Urine Urine specimen obtained by clean catch procedure / Unknown Non-blood Collection / Unknown 02/18/2025 2:57 PM EST 02/18/2025 2:57 PM EST Catrina Billings MD LAB URINE ORDERABL ES Final Result [facility] [address] [place] [address], [place] [phone] * Hemoglobin A1c (02/17/2025 11:38 AM EST) Hemoglobin A1C 6.0 <6.5 % LAB CHEMISTRY METHOD 02/18/2025 1:39 PM EST [facility] Mean Bld Glu Estim. 126 mg/dL LAB CHEMISTRY METHOD 02/18/2025 1:39 PM EST [facility] Blood Venous blood specimen / Unknown Venipuncture / Unknown 02/17/2025 11:38 AM EST 02/17/2025 11:38 AM EST Catrina Billings MD LAB BLOOD ORDERABL ES Final Result [facility] [address] [place] [address], [place] [phone] * US Head Neck Soft Tissue (12/13/2024 3:01 PM EDT) Anatomical Region Laterality Modality Head and Neck Ultrasound 12/13/2024 3:28 PM EDT Impressions 12/13/2024 3:38 PM EDT Minimal enlargement of a subcentimeter left thyroid nodule. The other subcentimeter left thyroid nodule is stable. -------- FINAL REPORT -------- Dictated By: Sindi Sutherland Dictated Date: 12/13/2024 15:28 ET Assigned Physician: Sindi Sutherland Reviewed and Electronically Signed By: Sindi Sutherland Signed Date: 12/13/2024 15:38 ET Workstation ID: [id number] Transcribed By: Self Edit Transcribed Date: 12/13/2024 15:28 ET Narrative 12/13/2024 3:38 PM EDT EXAM: Thyroid ultrasound HISTORY: Follow-up thyroid nodules. COMPARISON: 05/26/2023 FINDINGS: Thyroid gland is not enlarged: right lobe measures 3.6 x 1.8 x 1.4 cm, left lobe measures 3.6 x 1.6 x 1.6 cm, and the isthmus measures 0.5 cm in thickness. Thyroid parenchyma appears homogeneous without hypervascularity on color Doppler. Right lobe: -No nodule detected. Left lobe: -0.4 x 0.4 x 0.3 cm solid hypoechoic nodule in the mid lobe is not significantly changed. -0.8 x 0.6 x 0.3 cm mixed cystic and solid isoechoic nodule in the mid lobe has minimally enlarged with an enlarging cystic component. Procedure Note Sindi Sutherland MD - 12/13/2024 EXAM: Thyroid ultrasound HISTORY: Follow-up thyroid nodules. COMPARISON: 05/26/2023 FINDINGS: Thyroid gland is not enlarged: right lobe measures 3.6 x 1.8 x 1.4 cm,left lobe measures 3.6 x 1.6 x 1.6 cm, and the isthmus measures 0.5 cm inthickness. Thyroid parenchyma appears homogeneous without hypervascularityon color Doppler. Right lobe: -No nodule detected. Left lobe: -0.4 x 0.4 x 0.3 cm solid hypoechoic nodule in the mid lobe is notsignificantly changed. -0.8 x 0.6 x 0.3 cm mixed cystic and solid isoechoic nodule in the midlobe has minimally enlarged with an enlarging cystic component. IMPRESSION: Minimal enlargement of a subcentimeter left thyroid nodule. The othersubcentimeter left thyroid nodule is stable. -------- FINAL REPORT -------- Dictated By: Sindi Sutherland Dictated Date: 12/13/2024 15:28 ET Assigned Physician: Sindi Sutherland Reviewed and Electronically Signed By: Sindi Sutherland Signed Date: 12/13/2024 15:38 ET Workstation ID: [id number] Transcribed By: Self Edit Transcribed Date: 12/13/2024 15:28 ET us Mariana Wilkinson MD IMG US PROCEDURES Final Result * US Breast Limited Left (12/13/2024 2:53 PM EDT) Anatomical Region Laterality Modality Breast Left Ultrasound 12/13/2024 3:17 PM EDT Impressions 12/13/2024 3:23 PM EDT No mammographic or ultrasonographic evidence of malignancy. Follow-up mammogram at the time of the next annual screening. Findings and recommendations were conveyed to the patient. BI-RADS CATEGORY: 1 - NEGATIVE RECOMMENDATION: Return to annual mammography. Return to annual mammography. Mammo Location: [facility], [address] [place] [address], [phone], . -------- FINAL REPORT -------- Dictated By: Snow Grider Dictated Date: 12/13/2024 15:17 ET Assigned Physician: Snow Grider Reviewed and Electronically Signed By: Snow Grider Signed Date: 12/13/2024 15:23 ET Workstation ID: [id number] Transcribed By: Self Edit Transcribed Date: 12/13/2024 15:17 ET Narrative 12/13/2024 3:23 PM EDT Left breast diagnostic mammogram. Targeted left breast ultrasound. CLINICAL: 69 years old, Female, focal asymmetry in the left slightly medial slightly upper posterior breast on screening exam from 11/18/2024. COMPARISON: Prior mammograms, latest 11/18/2024. FINDINGS: MAMMOGRAPHY TECHNIQUE: Spot compression views of the left breast in CC and MLO projection as well as full field lateral view were obtained digitally with 2-D C views and 3-D mammogram (digital breast tomosynthesis). Focal asymmetry of concern was not confirmed on the additional views and probably representing summation artifact. BREAST DENSITY: B - There are scattered areas of fibroglandular density. ULTRASOUND TECHNIQUE: Targeted ultrasound of the left breast was performed with attention to the slightly medial upper posterior left breast. No cystic or solid masses or acoustic shadowing identified. Procedure Note Snow Grider MD - 12/13/2024 Left breast diagnostic mammogram. Targeted left breast ultrasound. CLINICAL: 69 years old, Female, focal asymmetry in the left slightlymedial slightly upper posterior breast on screening exam from 11/18/2024. COMPARISON: Prior mammograms, latest 11/18/2024. FINDINGS: MAMMOGRAPHY TECHNIQUE: Spot compression views of the left breast in CC and MLOprojection as well as full field lateral view were obtained digitally with2-D C views and 3-D mammogram (digital breast tomosynthesis). Focal asymmetry of concern was not confirmed on the additional views andprobably representing summation artifact. BREAST DENSITY: B - There are scattered areas of fibroglandular density. ULTRASOUND TECHNIQUE: Targeted ultrasound of the left breast was performed withattention to the slightly medial upper posterior left breast. No cysticor solid masses or acoustic shadowing identified. IMPRESSION: No mammographic or ultrasonographic evidence of malignancy. Follow-upmammogram at the time of the next annual screening. Findings andrecommendations were conveyed to the patient. BI-RADS CATEGORY: 1 - NEGATIVE RECOMMENDATION: Return to annual mammography. Return to annual mammography. Mammo Location: [facility], [address] [place] [address], [id number], . -------- FINAL REPORT -------- Dictated By: Snow Grider Dictated Date: 12/13/2024 15:17 ET Assigned Physician: Snow Grider Reviewed and Electronically Signed By: Snow Grider Signed Date: 12/13/2024 15:23 ET Workstation ID: [id number] Transcribed By: Self Edit Transcribed Date: 12/13/2024 15:17 ET us Catrina Billings MD IMG US PROCEDURES Final Result * MG Mammo Digital Diagnostic w [place] Left (12/13/2024 2:32 PM EDT) Anatomical Region Laterality Modality Breast Left Mammography 12/13/2024 3:17 PM EDT Impressions 12/13/2024 3:23 PM EDT No mammographic or ultrasonographic evidence of malignancy. Follow-up mammogram at the time of the next annual screening. Findings and recommendations were conveyed to the patient. BI-RADS CATEGORY: 1 - NEGATIVE RECOMMENDATION: Return to annual mammography. Return to annual mammography. Mammo Location: [facility], [address] [place] [address], [phone], . -------- FINAL REPORT -------- Dictated By: Snow Grider Dictated Date: 12/13/2024 15:17 ET Assigned Physician: Snow Grider Reviewed and Electronically Signed By: Snow Grider Signed Date: 12/13/2024 15:23 ET Workstation ID: [id number] Transcribed By: Self Edit Transcribed Date: 12/13/2024 15:17 ET Narrative 12/13/2024 3:23 PM EDT Left breast diagnostic mammogram. Targeted left breast ultrasound. CLINICAL: 69 years old, Female, focal asymmetry in the left slightly medial slightly upper posterior breast on screening exam from 11/18/2024. COMPARISON: Prior mammograms, latest 11/18/2024. FINDINGS: MAMMOGRAPHY TECHNIQUE: Spot compression views of the left breast in CC and MLO projection as well as full field lateral view were obtained digitally with 2-D C views and 3-D mammogram (digital breast tomosynthesis). Focal asymmetry of concern was not confirmed on the additional views and probably representing summation artifact. BREAST DENSITY: B - There are scattered areas of fibroglandular density. ULTRASOUND TECHNIQUE: Targeted ultrasound of the left breast was performed with attention to the slightly medial upper posterior left breast. No cystic or solid masses or acoustic shadowing identified. Procedure Note Snow Grider MD - 12/13/2024 Left breast diagnostic mammogram. Targeted left breast ultrasound. CLINICAL: 69 years old, Female, focal asymmetry in the left slightlymedial slightly upper posterior breast on screening exam from 11/18/2024. COMPARISON: Prior mammograms, latest 11/18/2024. FINDINGS: MAMMOGRAPHY TECHNIQUE: Spot compression views of the left breast in CC and MLOprojection as well as full field lateral view were obtained digitally with2-D C views and 3-D mammogram (digital breast tomosynthesis). Focal asymmetry of concern was not confirmed on the additional views andprobably representing summation artifact. BREAST DENSITY: B - There are scattered areas of fibroglandular density. ULTRASOUND TECHNIQUE: Targeted ultrasound of the left breast was performed withattention to the slightly medial upper posterior left breast. No cysticor solid masses or acoustic shadowing identified. IMPRESSION: No mammographic or ultrasonographic evidence of malignancy. Follow-upmammogram at the time of the next annual screening. Findings andrecommendations were conveyed to the patient. BI-RADS CATEGORY: 1 - NEGATIVE RECOMMENDATION: Return to annual mammography. Return to annual mammography. Mammo Location: [facility], [address] [place] [address], [phone], . -------- FINAL REPORT -------- Dictated By: Snow Grider Dictated Date: 12/13/2024 15:17 ET Assigned Physician: Snow Grider Reviewed and Electronically Signed By: Snow Grider Signed Date: 12/13/2024 15:23 ET Workstation ID: [id number] Transcribed By: Self Edit Transcribed Date: 12/13/2024 15:17 ET us Catrina Billings MD IMG BI PROCEDURES Final Result * (ABNORMAL) Lipid panel with reflex to direct LDL (11/18/2024 1:19 PM EDT) Cholesterol 164 0 - 200 mg/dL LAB CHEMISTRY METHOD 11/18/2024 5:03 PM EDT [facility] Triglycerides 174(H) 0 - 150 mg/dL LAB CHEMISTRY METHOD 11/18/2024 5:03 PM EDT [facility] HDL 44 >=40 mg/dL LAB CHEMISTRY METHOD 11/18/2024 5:03 PM EDT [facility] LDL Calculated 85 0 - 100 mg/dL LAB CHEMISTRY METHOD 11/18/2024 5:03 PM EDT [facility] Comment:Estimated LDL Calcul ated using equation: Total cholesterol - HDL cholesterol - (Triglycerides/5) VLDL Cholesterol Darrell 34.8 mg/dL LAB CHEMISTRY METHOD 11/18/2024 5:03 PM EDT [facility] Non HDL Chol. (LDL+VLDL) 120 <145 mg/dL LAB CHEMISTRY METHOD 11/18/2024 5:03 PM EDT [facility] Chol/HDL Ratio 3.7 0.0 - 4.4 LAB CHEMISTRY METHOD 11/18/2024 5:03 PM EDT [facility] Blood Venous blood specimen / Unknown Venipuncture / Unknown 11/18/2024 1:19 PM EDT 11/18/2024 1:19 PM EDT us Catrina Billings MD LAB BLOOD ORDERABL ES Final Result [facility] [address] [place] [address], * (ABNORMAL) Comprehensive metabolic panel (11/18/2024 1:19 PM EDT) Sodium 137 133 - 145 mmol/L LAB CHEMISTRY METHOD 11/18/2024 5:03 PM [facility] Potassium 3.4(L) 3.5 - 5.5 mmol/L LAB CHEMISTRY METHOD 11/18/2024 5:03 PM [facility] Chloride 99 96 - 110 mmol/L LAB CHEMISTRY METHOD 11/18/2024 5:03 PM [facility] CO2 31 21 - 32 mmol/L LAB CHEMISTRY METHOD 11/18/2024 5:03 PM [facility] Anion Gap 7 3 - 11 LAB CHEMISTRY METHOD 11/18/2024 5:03 PM [facility] Glucose 116(H) 70 - 100 mg/dL LAB CHEMISTRY METHOD 11/18/2024 5:03 PM [facility] BUN 15 5 - 25 mg/dL LAB CHEMISTRY METHOD 11/18/2024 5:03 PM [facility] Creatinine 0.80 0.50 - 1.10 mg/dL LAB CHEMISTRY METHOD 11/18/2024 5:03 PM [facility] eGFR 80 >=60 mL/min/1. 73m2 LAB CHEMISTRY METHOD 11/18/2024 5:03 PM [facility] Comment:Calculation based on the Chronic Kidney Disease Epidemiology Collaboration (CKD-EPI) equation refit without adjustment for race. BUN/Creatinine Ratio 18.8 LAB CHEMISTRY METHOD 11/18/2024 5:03 PM [facility] Calcium 9.1 8.5 - 10.5 mg/dL LAB CHEMISTRY METHOD 11/18/2024 5:03 PM [facility] AST (SGOT) 35 10 - 42 unit/L LAB CHEMISTRY METHOD 11/18/2024 5:03 PM [facility] ALT (SGPT) 38 10 - 60 unit/L LAB CHEMISTRY METHOD 11/18/2024 5:03 PM [facility] Alkaline Phosphatase 102 42 - 121 unit/L LAB CHEMISTRY METHOD 11/18/2024 5:03 PM EDT [facility] Total Protein 7.1 6.0 - 8.0 g/dL LAB CHEMISTRY METHOD 11/18/2024 5:03 PM EDT [facility] Albumin 3.9 3.2 - 5.0 g/dL LAB CHEMISTRY METHOD 11/18/2024 5:03 PM EDT [facility] Total Bilirubin 0.6 0.0 - 1.4 mg/dL LAB CHEMISTRY METHOD 11/18/2024 5:03 PM EDT [facility] Blood Venous blood specimen / Unknown Venipuncture / Unknown 11/18/2024 1:19 PM EDT 11/18/2024 1:19 PM EDT us Catrina Billings MD LAB BLOOD ORDERABL ES Final Result [facility] [address] [place] [address], * COLONOSCOPY Anesthesia - MAC; [facility] ENDOSCOPY (06/30/2024 11:59 AM EDT) Anatomical Region [...] pathology results. Narrative 06/30/2024 12:51 PM EDT [facility] Patient Name: Neva Baeza Procedure Date: 06/30/2024 11:59 AM Date of : 1955 Age: 68 Gender: Female Note Status: Finalized Attending MD: Karthikeyan Ramírez DO, [id number] Procedure Date No Time: 06/30/2024 Procedure: Colonoscopy [...] the physician, the nurse, the anesthesiologist, the customer service advisor and the air technician in the pre-procedure area in the [...] was minimal. Procedure Code(s): --- Professional --- 70284, Colonoscopy, flexible; with removal of tumor(s), polyp(s), or other lesion(s) by snare technique 29229, Colonoscopy, flexible; with directed submucosal injection(s), any substance Diagnosis Code(s): --- Professional --- Z12.11, Encounter for screening for malignant neoplasm of colon K64.9, Unspecified hemorrhoids D12.0, Benign neoplasm of cecum D12.1, Benign neoplasm of appendix D12.5, Benign neoplasm of sigmoid colon CPT copyright 2020 [employer]. All rights reserved. The codes documented in this report are preliminary and upon pickle solution maker review may be revised to meet current compliance requirements. KARTHIKEYAN Ramírez DO 06/30/2024 12:51:29 PM This report has been signed electronically.Karthikeyan Ramírez DO Number of Addenda: 0 Note Initiated On: 06/30/2024 11:59 AM Scope Withdrawal Time: 0 hours 11 minutes 32 seconds Scope In: 12:32:34 PM Scope Out: 12:47:45 PM Endoscopy Department at [facility] - [address] [place] [id number] Procedure Note Karthikeyan Ramírez DO - 06/30/2024 [facility] Patient Name: Neva Baeza Procedure Date: 06/30/2024 11:59 AM Date of : 1955 Age: 68 Gender: Female Note Status: Finalized Attending MD: Karthikeyan Ramírez DO, [id number] Procedure Date No Time: 06/30/2024 Procedure: Colonoscopy Indications: Screening for colorectal malignant neoplasm Providers: Karthikeyan Ramírez DO Referring MD: Karthikeyan Ramírez DO, Catrina atkins MD Medicines: Monitored Anesthesia Care Complications: No [...] the physician, the nurse, the anesthesiologist, the customer service advisor and thetechnician in the pre-procedure area in [...] was minimal. Procedure Code(s): --- Professional --- 34542, Colonoscopy, flexible; with removal of tumor(s), polyp(s), or other lesion(s) by snare technique 31790, Colonoscopy, flexible; with directedsubmucosal injection(s), any substance Diagnosis Code(s): --- Professional --- Z12.11, Encounter for screening for malignantneoplasm of colon K64.9, Unspecified hemorrhoids D12.0, Benign neoplasm of cecum D12.1, Benign neoplasm of appendix D12.5, Benign neoplasm of sigmoid colon CPT copyright 2020 [employer]. All rights reserved. The codes documented in this report are preliminary and upon pickle solution maker reviewmay be revised to meet current compliance requirements. KARTHIKEYAN Ramírez DO 06/30/2024 12:51:29 PM This report has been signed electronically.Karthikeyan Ramírez DO Number of Addenda: 0 Note Initiated On: 06/30/2024 11:59 AM Scope Withdrawal Time: 0 hours 11 minutes 32 seconds Scope In: 12:32:34 PM Scope Out: 12:47:45 PM Endoscopy Department at [facility] - [address] [place] [phone] IMPRESSION: - Hemorrhoids found on perianal exam. [...] colonoscopy for surveillance based on pathology results. Result [facility] Karthikeyan Ramírez DO GI~PROCEDURE ORDERABLES Final Re sult * External Diabetic Retina Eye Exam Report (05/11/2024 8:38 AM EST) Anatomical Region Laterality Modality Ultrasound Historical Provider IMG US PROCEDURES Final R esult * Depression Screening (11/20/2023) Depression Screening abstracted Historical Provider HEALTH MAINTENANCE Final Result * Falls Risk Assessment (09/15/2023) Pathologist [facility] Falls Risk Assessment abstracted Result [facility] Historical Provider MD HEALTH MAINTENANCE Final Result * DXA BONE [...] on the World Health Organization criteria, Neva Baeza should be classified as having osteopenia. This patient has a 8.2% risk of major osteoporotic fracture and a 0.8% risk of hip fracture over the next 10 years. (World Health Organization Fracture Risk Assessment) [facility] Department of Internal Medicine recommends using [...] on the World Health Organization criteria, Neva Baeza shouldbe classified as having osteopenia. This patient has a 8.2% risk of majorosteoporotic fracture and a 0.8% risk of hip fracture over the next 10years. (World Health Organization Fracture Risk Assessment) [facility] Department of Internal Medicine recommendsusing National [...] Final Result * Hepatitis C Screening (04/18/2017) Hepatitis C Screening abstracted Historical Provider HEALTH MAINTENANCE Final Result from Last 3 Months or Most Recently Relevant to Health Maintenance Insurance MEDICARE [facility] Care Teams Hydrate Control Tender Relationship Specialty Start Date End Date Catrina Billings MD [address] [place] [phone] PCP - General Internal Medicine 10/15/21
--- OUTSIDE RECORDS SUMMARY | 2025-02-24 18:56 | XMS_ITS | Encounter Summary ---
Author Organization [facility] Address [address] [place] [address] Care Team Providers Care Hog Cutter Name Role Phone Catrina Billings MD Primary Care Prov ider Encounter Details Date Type Department Care Team (Late st Contact Info) Description 02/18/2025 Results Follow-Up Adult Medicine [address] [phone] Catrina Billings MD [address] [place] [address] Social History Tobacco Use Types Packs/Day Years [...] care for your loved ones. For example, early childhood specialist or elderly care for an older adult? [...] AM EDT Office Visit Adult Medicine [address] [phone] Catrina Billings MD [address] [place] [address] 02/23/2026 12:00 PM EST Office Visit [address] [phone] Catrina Billings MD [address] [place] [address] documented as of this encounter Visit Diagnoses Not on filedocumented in this encounter Additional Health Concerns Assessment Noted Time PHQ-9 Depression Total Score: 0 03/22/19 25 12:14 AM EST documented as of this encounter Care Teams Hog Cutter Relationship Specialty Start Date End Date Catrina Billings MD [address] [place] [address] PCP - General Internal Medicine 10/15/21 documented as of this encounter
== END 2025-02-24 16:07 | disposition home or self-care (01) ==
PROVIDERS: PCP Internal Medicine; Visit Provider Physician Assistant
DX: M75.101 Unspecified rotator cuff tear or rupture of right shoulder, not specified as traumatic (principal)
CPT/HCPCS: 20610; 99213

== ENCOUNTER 2025-02-24 14:50 | Outpatient (REF) | payer MEDICARE, OTHER, BC, SELFPAY ==
--- NOTE | ~2025-02-24 | XR_ITS ---
EXAMINATION: XR SHOULDER, RIGHT CLINICAL INFORMATION: M25.519 - Pain in unspecified shoulder COMPARISON: None available. TECHNIQUE: Three views of the right shoulder. FINDINGS: Mild acromioclavicular arthritis. Mild glenohumeral arthritis. No visible acute fracture, dislocation or suspicious bony lesion. Small calcification inferior to the glenoid, could represent a loose body. XR/XR shoulder RT min 2V IMPRESSION: Arthritis as above. Possible small loose body. Electronically signed by: Dc Otero MD 02/24/2025 04:40 PM [facility]
== END 2025-02-24 14:51 | disposition home or self-care (01) ==
LOC: HO.HOSX 14:50
PROVIDERS: PCP Internal Medicine; Visit Provider Physician Assistant
DX: M75.101 Unspecified rotator cuff tear or rupture of right shoulder, not specified as traumatic (principal)
CPT/HCPCS: 20610; 73030; 99212; J0665; J1100; J2003

== ENCOUNTER → 2025-02-24 15:15 | Outpatient (BNV) | payer MEDICARE, OTHER, BC, SELFPAY | PROVIDERS: PCP Internal Medicine; Visit Provider Radiology Diagnostic Ultrasound | DX: M19.011 Primary osteoarthritis, right shoulder (principal) | CPT/HCPCS: 73030 ==